=== PATIENT | male | born 1965 | race Caucasian/White ===

== ENCOUNTER → 2017-03-17 10:15 | Outpatient (CLI) | payer BC, SELFPAY ==
[2017-03-17 12:29] LABS: Alanine Aminotransferase 50 U/L (12-78); Alkaline Phosphatase 76 U/L (46-116); Aspartate Amino Transferase 27 U/L (15-37); Bilirubin,Direct 0.1 mg/dL (0.0-0.2); Bilirubin,Total 0.5 mg/dL (0.2-1.0); Chol/HDL Ratio 2.8 (1-3.5); Cholesterol 107 mg/dL (140-200); HDL Cholesterol 38 mg/dL (27-67); LDL Cholesterol 49 mg/dL (0-130); Total Protein,Serum 6.7 gm/dL (6.4-8.2); Triglycerides 100 mg/dL (30-200); VLDL Cholesterol 20 mg/dL (0-40)
== END ==
PROVIDERS: PCP Family Medicine; Visit Provider Internal Medicine Cardiovascular Disease
DX: I25.10 Atherosclerotic heart disease of native coronary artery without angina pectoris (principal)
CPT/HCPCS: 36415; 80061; 80076

== ENCOUNTER 2017-03-20 17:58 | Inpatient (IN) | payer BC, SELFPAY ==
--- NOTE | 2017-03-20 19:19 | PC.NURSE ---
PT BEING SENT TO ER FOR FURTHER EVALUATION D/T C/O CHEST PAIN THAT IS NOW PRESENT WITHOUT COUGHING. PT REPORTED KNOWN CARDIAC ISSUES AND STENTS PLACED.
[2017-03-20 19:21] VITALS: BP 150/96; PULSE 81; RESP 22; TEMP 38.3; O2SAT 97; BMI 44.3
[2017-03-20 19:21] LABS: UTC Influenza A Antigen Negative (Negative); UTC Influenza B Antigen Positive (Negative)
--- NOTE | 2017-03-20 19:37 | XR_ITS ---
XR chest 2V HISTORY: ITS.REASON: chest pain ORDERING PHYSICIAN: Elise Peterson PATIENT AGE: 51 years COMPARISON: None available FINDINGS: There is mild cardiomegaly with mild prominence of the upper lobe pulmonary vessels suspicious for mild CHF. There is a 9 x 6 mm calcified granuloma right upper lobe. No interstitial or alveolar edema. No effusions. No acute bony anomalies. IMPRESSION: Mild CHF
[2017-03-20 19:51] LABS: Basophils # 0.1 K/mm3 (0-0.2); Basophils % 0.7 % (0.1-2.0); Eosinophils # 0.1 K/mm3 (0.0-0.4); Eosinophils % 1.4 % (0.1-12.0); Hematocrit 44.7 % (42.0-52.0); Hemoglobin 15.5 g/dL (14.1-18.0); Lymphocytes % 27.2 K/mm3 (10-50); Mean Corpuscular HGB Conc 34.6 g/dL (31.8-35.4); Mean Corpuscular Volume 92.5 fl (80-94); Mean Platelet Volume 8.4 fl (7.4-10.4); Monocytes # 0.5 K/mm3 (0.1-1.0); Monocytes % 7.4 % (1.7-9.3); Neutrophils # 4.6 K/mm3 (1.8-7.8); Neutrophils % 63.3 % (37.0-80.0); Platelet Count 215 K/mm3 (142-424); Red Blood Count 4.83 M/mm3 (4.60-6.20); Red Cell Distribution Width 13.7 % (11.5-17.5); White Blood Count 7.3 K/mm3 (4.8-10.8)
--- NOTE | 2017-03-20 19:58 | HMH.EDCP ---
ED Disposition Clinical Impression: Unstable angina, Influenza Disposition: Still a Patient Condition on Discharge: Good Referrals: Odette Aiken MD [Primary Care Provider] - - Critical Care Critical Care Time: No Attestation: On 03/20/17, the high probability of a clinically significant, sudden or life threatening deterioration of the following system(s) required my full and direct attention, intervention and personal management. The time I documented below is in addition to time spent performing reported procedures but includes the following listed in this critical care notation. Medical Decision Making - Medical Records Medical records reviewed: Yes: I reviewed the patient's medical records. Vital Signs: 03/20/17 19:21 Temperature 100.9 F H Temperature Source Oral Pulse Rate [Right Radial] 81 Respiratory Rate 22 Blood Pressure [Right Arm] 150/96 Blood Pressure Mean [Right Arm] 114 Blood Pressure Source [Right Arm] Automatic Cuff Blood Pressure Position [Right Arm] Sitting 02 Sat by Pulse Oximetry 97 Oxygen Delivery Method Room Air - Lab Data Lab Results 03/20/17 19:20: Influenza Type A Ag Negative, Influenza Type B Ag Positive A 03/20/17 19:20: WBC 7.3, RBC 4.83, Hgb 15.5, Hct 44.7, MCV 92.5, MCH 32.0 H, MCHC 34.6, RDW 13.7, Plt Count 215, MPV 8.4, Neut % (Auto) 63.3, Lymph % (Auto) 27.2, [place] % (Auto) 7.4, Eos % (Auto) 1.4, Baso % (Auto) 0.7, Neut # (Auto) 4.6, Lymph # (Auto) 2.0, [place] # (Auto) 0.5, Eos # (Auto) 0.1, Baso # (Auto) 0.1 03/20/17 19:20: Sodium 141, Potassium 4.0, Chloride 104, Carbon Dioxide 26, Anion Gap 15.0, BUN 17, Creatinine 0.99, Estimated Creat Clear 89, Estimated GFR 80, Est GFR ( Amer) 97, Glucose 138 H, Calcium 9.0, Total Bilirubin 0.5, AST 39 H, ALT 62, Alkaline Phosphatase 105, Total Creatine Kinase 260, CK-MB (CK-2) 1.9, CK-MB (CK-2) Rel Index 0.7, Troponin I < 0.02, Total Protein 7.5, Albumin 4.0, Globulin 3.5 H, Albumin/Globulin Ratio 1.1 Result diagrams: 03/20/17 19:20 03/20/17 19:20 Orders (Tests/Meds): ED MEDICATIONS Discontinued Medications Generic Name Dose Route Start Last Admin Trade Name Danitza PRN Reason Stop Dose Admin Acetaminophen 1,000 mg 03/20/17 19:50 03/20/17 19:51 Tylenol 500mg Tablet PO 03/20/17 19:51 1,000 mg ONCE ONE Administration Aspirin 324 mg 03/20/17 19:50 03/20/17 19:52 Aspirin 81mg Chewable Tablet PO 03/20/17 19:51 324 mg ONCE ONE Administration Nitroglycerin 1 gm 03/20/17 19:50 03/20/17 19:52 Nitroglycerin 1 Inch Oint Udp TD 03/20/17 19:51 1 gm ONCE ONE Administration ORDERS Category Date Time Status Chest XR 2 view (NOT portable) [XR chest 2V] Stat Exams 03/20/17 19:37 Taken - ECG Data Tracing #1 1- Normal sinus rhythm 82/min left atrial enlargement left axis deviation less than [address] elevation in V2 baseline artifact left ventricular hypertrophy. ECG initial impression date: 03/20/17 ECG initial impression time: 20:04 Tracing #2 After the patient was given aspirin and nitroglycerin obtain a second EKG which showed normal sinus rhythm 80/min LVH changes correction of the ST segment in V2 - Karl Inquiry Pt receiving controlled substance: No Karl was queried for this patient: No Medical Decision Making Narrative: [address] Coyle who recommended obtaining troponin and and report the results to him . Patient had normal troponin I contacted his primary care physician for admission and cardiology consultation. Chest Pain HPI - General Chief Complaint: Chest Pain Stated Complaint: head congestion, cough Mode of Arrival: Ambulatory Limitations: No Limitations Description of Symptoms (Recalled from ER Triage Doc. by RN): Pt. reports he tested positive for flu b today. He came from [facility] to the hospital when he started experiencing substernal chest pain, and difficulty breathing. - History of Present Illness HPI narrativ
--- NOTE | 2017-03-20 20:02 | ED_ITS ---
ED Disposition Clinical Impression: Unstable angina, Influenza Disposition: Still a Patient Condition on Discharge: Good Referrals: Odette Aiken MD [Primary Care Provider] - - Critical Care Critical Care Time: No Attestation: On 03/20/17, the high probability of a clinically significant, sudden or life threatening deterioration of the following system(s) required my full and direct attention, intervention and personal management. The time I documented below is in addition to time spent performing reported procedures but includes the following listed in this critical care notation. Medical Decision Making - Medical Records Medical records reviewed: Yes: I reviewed the patient's medical records. Vital Signs: 03/20/17 19:21 Temperature 100.9 F H Temperature Source Oral Pulse Rate [Right Radial] 81 Respiratory Rate 22 Blood Pressure [Right Arm] 150/96 Blood Pressure Mean [Right Arm] 114 Blood Pressure Source [Right Arm] Automatic Cuff Blood Pressure Position [Right Arm] Sitting 02 Sat by Pulse Oximetry 97 Oxygen Delivery Method Room Air - Lab Data Lab Results 03/20/17 19:20: Influenza Type A Ag Negative, Influenza Type B Ag Positive A 03/20/17 19:20: WBC 7.3, RBC 4.83, Hgb 15.5, Hct 44.7, MCV 92.5, MCH 32.0 H, MCHC 34.6, RDW 13.7, Plt Count 215, MPV 8.4, Neut % (Auto) 63.3, Lymph % (Auto) 27.2, [place] % (Auto) 7.4, Eos % (Auto) 1.4, Baso % (Auto) 0.7, Neut # (Auto) 4.6 , Lymph # (Auto) 2.0, [place] # (Auto) 0.5, Eos # (Auto) 0.1, Baso # (Auto) 0.1 03/20/17 19:20: Sodium 141, Potassium 4.0, Chloride 104, Carbon Dioxide 26, Anion Gap 15.0, BUN 17, Creatinine 0.99, Estimated Creat Clear 89, Estimated GFR 80, Est GFR ( Amer) 97, Glucose 138 H, Calcium 9.0, Total Bilirubin 0.5, AST 39 H, ALT 62, Alkaline Phosphatase 105, Total Creatine Kinase 260, CK- MB (CK-2) 1.9, CK-MB (CK-2) Rel Index 0.7, Troponin I < 0.02, Total Protein 7.5 , Albumin 4.0, Globulin 3.5 H, Albumin/Globulin Ratio 1.1 Result diagrams: 03/20/17 19:20 03/20/17 19:20 Orders (Tests/Meds): ED MEDICATIONS Discontinued Medications Generic Name Dose Route Start Last Admin Trade Name Danitza PRN Reason Stop Dose Admin Acetaminophen 1,000 mg 03/20/17 19:50 03/20/17 19:51 Tylenol 500mg Tablet PO 03/20/17 19:51 1,000 mg ONCE ONE Administration Aspirin 324 mg 03/20/17 19:50 03/20/17 19:52 Aspirin 81mg Chewable Tablet PO 03/20/17 19:51 324 mg ONCE ONE Administration Nitroglycerin 1 gm 03/20/17 19:50 03/20/17 19:52 Nitroglycerin 1 Inch Oint Udp TD 03/20/17 19:51 1 gm ONCE ONE Administration ORDERS Category Date Time Status Chest XR 2 view (NOT portable) [XR chest 2V] Stat Exams 03/20/17 19:37 Taken - ECG Data Tracing #1 1- Normal sinus rhythm 82/min left atrial enlargement left axis deviation less than [address] elevation in V2 baseline artifact left ventricular hypertrophy. ECG initial impression date: 03/20/17 ECG initial impression time: 20:04 Tracing #2 After the patient was given aspirin and nitroglycerin obtain a second EKG which showed normal sinus rhythm 80/min LVH changes correction of the ST segment in V2 - Karl Inquiry Pt receiving controlled substance: No Karl was queried for this patient: No Medical Decision Making Narrative:
[2017-03-20 20:17] LABS: Alanine Aminotransferase 62 U/L (12-78); Albumin/Globulin Ratio 1.1 (1.1-1.8); Alkaline Phosphatase 105 U/L (46-116); Aspartate Amino Transferase 39 U/L (15-37); Bilirubin,Total 0.5 mg/dL (0.2-1.0); Blood Urea Nitrogen 17 mg/dL (7-18); CKMB Relative Index 0.7 U/L (0-4.0); Carbon Dioxide 26 mmol/L (21.0-32.0); Chloride 104 mmol/L (98-107); Creatine Kinase 260 U/L (39-308); Creatine Kinase MB 1.9 mg/ml (0.0-3.6); Creatinine Clearance Estimated 89 mL/min (0-300); Creatinine,Serum 0.99 mg/dL (0.70-1.30); Estimated Glomerular Filt Rate 80 ml/min (>60); GFR (African American) 97 ML/MIN (>60); Globulin 3.5 gm/dl (1.3-3.2); Glucose 138 mg/dL (74-106); Sodium 141 mmol/L (136-145); Total Protein,Serum 7.5 gm/dL (6.4-8.2); Troponin I < 0.02 ng/ml (0.00-0.06)
[2017-03-20 22:00] VITALS: BMI 42.3
[2017-03-20 22:17] LABS: Troponin I < 0.02 ng/ml (0.00-0.06)
[2017-03-20 23:14] VITALS: BP 145/88; PULSE 80; RESP 18; TEMP 37.7; O2SAT 98
[2017-03-20 23:47] VITALS: O2SAT 94
[2017-03-21] VITALS (15 sets, daily range): BP systolic 126–149; BP diastolic 62–84; PULSE 74–83; RESP 18–21; TEMP 36.5–39.9; O2SAT 95–100
--- NOTE | 2017-03-21 05:08 | PC.NURSE ---
PT RESTING IN BED. HAS BEEN UNCOOPERATIVE WITH STAFF AT TIMES. PT STATES HE HURTS IN HIS CHEST WHEN HE BREATHS IN. LUNGS ARE DIMINISHED T/O. PT O2 SAT HAS REMAINED IN UPPER 90S THIS SHIFT ON RA. MEDICATIONS ADMINISTERED PER MAR AND MD ORDER. PT REMAINS NSR ON TELEMETRY. TROPONIN HAS BEEN NORMAL. HE HAS HAD ELEVATED TEMP AT TIMES THIS SHIFT. NO OTHER COCNERNS AT THIS TIME. WILL CONTINUE TO MONITOR.
[2017-03-21 06:07] LABS: Troponin I < 0.02 ng/ml (0.00-0.06)
--- NOTE | 2017-03-21 08:07 | PC.NURSE ---
REPORT HAND OFF TO Keli SWANN AND Misty LARKIN
--- NOTE | 2017-03-21 08:34 | P.CONPHA_ITS ---
[facility] Pharmacy VTE Monitoring - Patient Demographics Admission date: 03/20/17 Report Date: 03/21/17 Time: 08:33 Allergies/Adverse Reactions: Patient Allergies latex Allergy (Intermediate, Verified 03/20/17 19:35) I-RASH Height: 1.78 m Weight: 133.81 kg Patient Problems: Current Active Problems Unstable angina (Acute) Influenza (Acute) - VTE Risk Labs: VTE Related Lab Results Hgb 15.5 g/dL (14.1-18.0) 03/20/17 19:20 Hct 44.7 % (42.0-52.0) 03/20/17 19:20 Plt Count 215 K/mm3 (142-424) 03/20/17 19:20 BUN 17 mg/dL (7-18) 03/20/17 19:20 Creatinine 0.99 mg/dL (0.70-1.30) 03/20/17 19:20 Estimated Creat Clear 89 mL/min (0-300) 03/20/17 19:20 Was VTE Risk Assessment Performed: Yes VTE Score: 4 VTE Risk Level: Low Risk - Prophylaxis VTE Prophylaxis Ordered?: Yes Types of VTE Prophylaxis: TEDS Knee High Location of Applied Device: Bilateral Lower Extremeties - VTE Diagnosis Confirmed Treatment or plan recommended: Continue Current Treatment
--- NOTE | 2017-03-21 09:27 | HMH.HP ---
*Admission Date: 03/20/17 *Chief complaint: cough and CP *History of present illness: Mr Malhotra is a 51 years old white male with history of coronary artery disease status post stenting of the LAD in 2017. He experienced a productive cough with pressure like discomfort in the left anterior Chest yesterday. He presented to urgent treatment care where he was noted to be diaphoretic, short of breath, and reported having pressure type chest pain. He was diverted to the main ER. His systolic blood pressure was 150 and an EKG had V2 changes in comparison to an old EKG from June 07, 2016. Dr. Coyle, his basketball coach, was contacted who recommended obtaining blood work. He was then admitted for further evaluation and TX. This AM he is feeling better. He denies CP and SOB. He has been sleeping with his CPAP on. [facility] History Medical History: Reports:: Anxiety, Coronary Artery Disease, Depression, Diabetes Mellitus Type 2, Gastroesophageal Reflux Disease(GERD), Hyperlipidemia, Hypertension, Valvular Heart Disease Comment: ADD; chronic back pain; sleep apnea Laterality Cases: Bilateral: Carpal Tunnel Release Other Surgeries: Yes: Coronary Stent, Other (carpal tunnel) Comment: Ganglion cyst removal - *Social History Educational Level: Attended High School Smoking Status: Never smoker Alcohol Intake: current Alcohol Intake Frequency:: a few times a week Occupational Status: employed Housing: house Household Members: spouse, children - Psychiatric History Expresses thoughts of harming self/others: None Suicide Plan Description: No Plan Pschychiatric History:: Reports:: Anxiety Comment: pt is adopted Review of Systems - Constitutional Denies body ache(s), Denies fever(s) - ENT Reports dental pain, Denies dizziness, Denies sore throat - *Cardiovascular Reports chest pain, Reports shortness of breath with activity, Denies irregular heart rhythm - *Respiratory Reports cough, Reports shortness of breath with activity, Reports excessive phlegm production, Denies coughing up blood - *Gastrointestinal Reports heartburn, Denies abdominal pain, Denies change in bowel habits, Denies constipation, Denies loose stools, Denies nausea, Denies vomiting - *Genitourinary Denies difficulty urinating - *Musculoskeletal Denies joint pain, Denies body aches - *Neurologic Denies dizziness, Denies headache(s) Meds Home Medications Medication Instructions Recorded Confirmed Type aspirin 81 mg tablet,delayed 81 mg PO DAILY 03/11/17 03/21/17 History release coenzyme Q10 10 mg capsule 10 mg PO DAILY 03/11/17 03/21/17 History fluticasone 50 mcg/actuation nasal 50 mcg INTRANASAL ONCE 03/11/17 03/20/17 History spray,suspension lisinopril 20 mg tablet 20 mg PO DAILY 03/11/17 03/21/17 History metformin 500 mg tablet 500 mg PO BID 03/11/17 03/20/17 History omeprazole magnesium 20 mg 20 mg PO DAILY tab 03/11/17 03/20/17 History tablet,delayed release oxycodone-acetaminophen 10 mg-325 1 tab PO Q4-6H PRN 03/11/17 03/20/17 History mg tablet prasugrel 10 mg tablet 10 mg PO DAILY 03/11/17 03/21/17 History ranolazine ER 1,000 mg 1,000 mg PO BID 03/11/17 03/21/17 History tablet,extended release,12 hr rosuvastatin 20 mg tablet 20 mg PO HS 03/11/17 03/21/17 History triamterene 37.5 0.5 tab PO QAM tab 03/11/17 03/20/17 History mg-hydrochlorothiazide 25 mg tablet venlafaxine ER 75 mg 75 mg PO QHS 03/11/17 03/20/17 History capsule,extended release 24 hr dextroamphetamine-amphetamine 20 20 mg PO BID tab 03/17/17 03/21/17 History mg tablet Bisoprolol Fumarate [Zebeta 5mg 5 mg PO DAILY 03/20/17 03/21/17 History tablet] Allergies Allergy/AdvReac Type Severity Reaction Status Date / Time latex Allergy Intermediate I-RASH Verified 03/20/17 19:35 Exam Vital signs and Labs for Last 24 Hours: Temp Pulse Resp BP Pulse Ox 100.5 F H 80 19 128/84 97 03/21/17 04:05 03/21/17 04:58 03/21/17 04:05 03/10
--- NOTE | 2017-03-21 09:32 | P.HP_ITS ---
*Admission Date: 03/20/17 *Chief complaint: cough and CP *History of present illness: Mr Malhotra is a 51 years old white male with history of coronary artery disease status post stenting of the LAD in 2017. He experienced a productive cough with pressure like discomfort in the left anterior Chest yesterday. He presented to urgent treatment care where he was noted to be diaphoretic, short of breath, and reported having pressure type chest pain. He was diverted to the main ER. His systolic blood pressure was 150 and an EKG had V2 changes in comparison to an old EKG from June 07, 2016. Dr. Coyle, his ranch helper, was contacted who recommended obtaining blood work. He was then admitted for further evaluation and TX. This AM he is feeling better. He denies CP and SOB. He has been sleeping with his CPAP on. [facility] History Medical History: Reports:: Anxiety, Coronary Artery Disease, Depression, Diabetes Mellitus Type 2, Gastroesophageal Reflux Disease(GERD), Hyperlipidemia , Hypertension, Valvular Heart Disease Comment: ADD; chronic back pain; sleep apnea Laterality Cases: Bilateral: Carpal Tunnel Release Other Surgeries: Yes: Coronary Stent, Other (carpal tunnel) Comment: Ganglion cyst removal - *Social History Educational Level: Attended High School Smoking Status: Never smoker Alcohol Intake: current Alcohol Intake Frequency:: a few times a week Occupational Status: employed Housing: house Household Members: spouse, children - Psychiatric History Expresses thoughts of harming self/others: None Suicide Plan Description: No Plan Pschychiatric History:: Reports:: Anxiety Comment: pt is adopted Review of Systems - Constitutional Denies body ache(s), Denies fever(s) - ENT Reports dental pain, Denies dizziness, Denies sore throat - *Cardiovascular Reports chest pain, Reports shortness of breath with activity, Denies irregular heart rhythm - *Respiratory Reports cough, Reports shortness of breath with activity, Reports excessive phlegm production, Denies coughing up blood - *Gastrointestinal Reports heartburn, Denies abdominal pain, Denies change in bowel habits, Denies constipation, Denies loose stools, Denies nausea, Denies vomiting - *Genitourinary Denies difficulty urinating - *Musculoskeletal Denies joint pain, Denies body aches - *Neurologic Denies dizziness, Denies headache(s) Meds Home Medications Medication Instructions Recorded Confirmed Type aspirin 81 mg tablet,delayed 81 mg PO DAILY 03/11/17 03/21/17 History release coenzyme Q10 10 mg capsule 10 mg PO DAILY 03/11/17 03/21/17 History fluticasone 50 mcg/actuation nasal 50 mcg INTRANASAL ONCE 03/11/17 03/20/17 History spray,suspension lisinopril 20 mg tablet 20 mg PO DAILY 03/11/17 03/21/17 History metformin 500 mg tablet 500 mg PO BID 03/11/17 03/20/17 History omeprazole magnesium 20 mg 20 mg PO DAILY tab 03/11/17 03/20/17 History tablet,delayed release oxycodone-acetaminophen 10 mg-325 1 tab PO Q4-6H PRN 03/11/17 03/20/17 History mg tablet prasugrel 10 mg tablet 10 mg PO DAILY 03/11/17 03/21/17 History ranolazine ER 1,000 mg 1,000 mg PO BID 03/11/17 03/21/17 History tablet,extended release,12 hr rosuvastatin 20 mg tablet 20 mg PO HS 03/11/17 03/21/17 History triamterene 37.5 0.5 tab PO QAM tab 03/11/17 03/20/17 History mg-hydrochlorothiazide 25 mg tablet venlafaxine ER 75 mg 75 mg PO QHS 03/11/17 03/20/17 History capsule,extend
--- NOTE | 2017-03-21 18:31 | HMH.ACPN2 ---
Internal Medicine - PN: Subj *Date: 03/21/17 *Time: 18:31 Interval history: ER did not enter formal consult, thus patient was not seen today by cardiology. His status has improved: lungs are clear, no leg edema. Exam Vital signs and Labs for Last 24 Hours: Temp Pulse Resp BP Pulse Ox 99.6 F 78 18 126/62 95 03/21/17 16:29 03/21/17 16:29 03/21/17 16:29 03/21/17 15:21 03/21/17 15:21 Laboratory Results - last 24 hr 03/21/17 05:05: Troponin I < 0.02 I & O for Last 24 hours: Intake & Output 03/19/17 03/20/17 03/21/17 03/22/17 11:59 11:59 11:59 11:59 Intake Total 458 / 458 720 / 720 Output Total 800 / 800 Balance 458 / 458 -80 / -80 Weight 295 lb - *Routine Respiratory Exam Present: CTA bilaterally - *Routine Cardiovascular Exam Present: RRR - *Routine Extremities Exam Absent: edema Assessment and Plan (1) Chest pain Current visit: Yes Status: Acute Category: Medical Code(s): R07.9 - Chest pain, unspecified (2) Influenza Current visit: Yes Status: Acute Category: Medical Code(s): J11.1 - Influenza due to unidentified influenza virus with other respiratory manifestations (3) HTN (hypertension) Current visit: No Status: Chronic Qualifiers: Hypertension type: essential hypertension Qualified Code(s): I10 - Essential (primary) hypertension Category: Medical Code(s): I10 - Essential (primary) hypertension (4) CAD (coronary artery disease) Current visit: No Status: Chronic Qualifiers: Coronary Disease-Associated Artery/Lesion type: circle artery [place] vs. transplanted heart: circle heart Associated angina: without angina Qualified Code(s): I25.10 - Atherosclerotic heart disease of circle coronary artery without angina pectoris Category: Medical Code(s): I25.10 - Atherosclerotic heart disease of circle coronary artery without angina pectoris (5) Diabetes mellitus Current visit: No Status: Chronic Qualifiers: Diabetes mellitus type: type 2 Diabetes mellitus complication status: without complication Diabetes mellitus information assurance specialist insulin use: unspecified information assurance specialist insulin use status Qualified Code(s): E11.9 - Type 2 diabetes mellitus without complications Category: Medical Code(s): E11.9 - Type 2 diabetes mellitus without complications (6) LETY (obstructive sleep apnea) Current visit: No Status: Chronic Category: Medical Code(s): G47.33 - Obstructive sleep apnea (adult) (pediatric) (7) Stented coronary artery Current visit: No Status: Chronic Category: Surgical Code(s): Z95.5 - Presence of coronary angioplasty implant and graft - Assessment and plan all Dx Assessment and Plan for all problems:: Dr. Aiken spoke with Dr. Coyle who will see patient in consult. Cardiolyte GXT ordered for in AM.
--- NOTE | 2017-03-21 18:34 | P.PN_ITS ---
Internal Medicine - PN: Subj *Date: 03/21/17 *Time: 18:31 Interval history: ER did not enter formal consult, thus patient was not seen today by cardiology. His status has improved: lungs are clear, no leg edema. Exam Vital signs and Labs for Last 24 Hours: Temp Pulse Resp BP Pulse Ox 99.6 F 78 18 126/62 95 03/21/17 16:29 03/21/17 16:29 03/21/17 16:29 03/21/17 15:21 03/21/17 15:21 Laboratory Results - last 24 hr 03/21/17 05:05: Troponin I < 0.02 I & O for Last 24 hours: Intake & Output 03/19/17 03/20/17 03/21/17 03/22/17 11:59 11:59 11:59 11:59 Intake Total 458 / 458 720 / 720 Output Total 800 / 800 Balance 458 / 458 -80 / -80 Weight 295 lb - *Routine Respiratory Exam Present: CTA bilaterally - *Routine Cardiovascular Exam Present: RRR - *Routine Extremities Exam Absent: edema Assessment and Plan (1) Chest pain Current visit: Yes Status: Acute Category: Medical Code(s): R07.9 - Chest pain, unspecified (2) Influenza Current visit: Yes Status: Acute Category: Medical Code(s): J11.1 - Influenza due to unidentified influenza virus with other respiratory manifestations (3) HTN (hypertension) Current visit: No Status: Chronic Qualifiers: Hypertension type: essential hypertension Qualified Code(s): I10 - Essential (primary) hypertension Category: Medical Code(s): I10 - Essential (primary) hypertension (4) CAD (coronary artery disease) Current visit: No Status: Chronic Qualifiers: Coronary Disease-Associated Artery/Lesion type: crow artery [place] vs. transplanted heart: crow heart Associated angina: without angina Qualified Code(s): I25.10 - Atherosclerotic heart disease of crow coronary artery without angina pectoris Category: Medical Code(s): I25.10 - Atherosclerotic heart disease of crow coronary artery without angina pectoris (5) Diabetes mellitus Current visit: No Status: Chronic Qualifiers: Diabetes mellitus type: type 2 Diabetes mellitus complication status: without complication Diabetes mellitus terminal manager insulin use: unspecified terminal manager insulin use status Qualified Code(s): E11.9 - Type 2 diabetes mellitus without complications Category: Medical Code(s): E11.9 - Type 2 diabetes mellitus without complications (6) LETY (obstructive sleep apnea) Current visit: No Status: Chronic Category: Medical Code(s): G47.33 - Obstructive sleep apnea (adult) (pediatric) (7) Stented coronary artery Current visit: No Status: Chronic Category: Surgical Code(s): Z95.5 - Presence of coronary angioplasty implant and graft - Assessment and plan all Dx Assessment and Plan for all problems:: Dr. Aiken spoke with Dr. Coyle who will see patient in consult. Cardiolyte GXT ordered for in AM.
[2017-03-22] VITALS (13 sets, daily range): BP systolic 93–141; BP diastolic 40–70; PULSE 66–88; RESP 16–20; TEMP 36.6–37.2; O2SAT 95–98
--- NOTE | 2017-03-22 03:44 | PC.NURSE ---
PATIENT SEEMS TO HAVE RESTED WELL AND HAS SLEPT THROUGHOUT SHIFT. PATIENT C/O HAVING CHILLS AND WAS FLUSHED/DIAPHORETIC. HIS TEMP AT THAT TIME WAS 100.8 ORALLY AND HE RECEIVED PRN TYLENOL AT THAT TIME. TEMP WAS RECHECKED LATER AND WAS 98.6 ORALLY. PATIENT'S PERSONAL CPAP IS IN PLACE WHILE PATIENT IS SLEEPING. HE HAS HAD NO C/O PAIN. HE DID SAY THAT HE DOES GET SOA AT TIMES. NO DISTRESS NOTED. PATIENT IS CURRENTLY IN BED SLEEPING. NO OTHER PROBLEMS NOTED AT THIS TIME. VSS. WILL CONTINUE TO MONITOR. SAFETY MEASURES IN PLACE, CALL LIGHT IN REACH.
--- NOTE | 2017-03-22 06:17 | NM_ITS ---
CARDIOLITE SPECT MYOCARDIAL PERFUSION SCAN, REST AND STRESS: EXERCISE STRESS [facility] REVIEW QGS EF AND WALL MOTION EVALUATION: QPS - PERFUSION EVALUATION HISTORY: Chest pain, SOB, CAD, HTN, DM DOSE: 10.94 mCi technetium Myoview intravenously at rest followed by 32.3 mCi technetium Myoview following the intravenous administration of 0.4 mg of Lexiscan. Resting blood pressure is 117/63. Stress blood pressure 102/54. FINDINGS: Ejection fraction is calculated to be 48%. Mild global hypokinesia Fixed defect is present in the inferior wall somewhat more prominent on the rest images. No reversible defects are evident. IMPRESSION: 1. Low ejection fraction of 40% with mild global hypokinesia. 2. Small fixed defect involving the inferior wall consistent with an area of infarction. No reversible defects are evident
--- NOTE | 2017-03-22 07:03 | HMH.ITSHM ---
BISOPROLOL LISINOPRIL METFORMIN PROTONIX EFFIENT PRAVASTATIN RANEXA EFFEXOR MAXZIDE
--- NOTE | 2017-03-22 09:10 | PC.NURSE ---
pt back from stress test
--- NOTE | 2017-03-22 09:12 | HMH.ACPN2 ---
Internal Medicine - PN: Subj *Date: 03/22/17 *Time: 09:12 Interval history: Has completed stress test. States he has been wheezing. Continues to have chest pain with cough. He has been eating without problems Exam Vital signs and Labs for Last 24 Hours: Temp Pulse Resp BP Pulse Ox 98.7 F 74 20 93/40 95 03/22/17 03:30 03/22/17 06:06 03/22/17 03:30 03/22/17 03:30 03/22/17 03:30 I & O for Last 24 hours: Intake & Output 03/19/17 03/20/17 03/21/17 03/22/17 11:59 11:59 11:59 11:59 Intake Total 458 / 458 720 / 720 Output Total 800 / 800 Balance 458 / 458 -80 / -80 Weight 295 lb - Constitutional no acute distress - *Routine Respiratory Exam Comments: Bilateral inspiratory and expiratory wheezing - *Routine Cardiovascular Exam Present: RRR - *Routine Abdominal Exam Present: soft. Absent: tenderness - *Routine Extremities Exam Absent: edema, full ROM, calf tenderness - *Routine Neurological Exam Present: alert, oriented X3 Assessment and Plan (1) Chest pain Current visit: Yes Status: Acute Category: Medical Code(s): R07.9 - Chest pain, unspecified (2) Influenza Current visit: Yes Status: Acute Category: Medical Code(s): J11.1 - Influenza due to unidentified influenza virus with other respiratory manifestations (3) HTN (hypertension) Current visit: No Status: Chronic Qualifiers: Hypertension type: essential hypertension Qualified Code(s): I10 - Essential (primary) hypertension Category: Medical Code(s): I10 - Essential (primary) hypertension (4) CAD (coronary artery disease) Current visit: No Status: Chronic Qualifiers: Coronary Disease-Associated Artery/Lesion type: [place] artery [place] vs. transplanted heart: [place] heart Associated angina: without angina Qualified Code(s): I25.10 - Atherosclerotic heart disease of [place] coronary artery without angina pectoris Category: Medical Code(s): I25.10 - Atherosclerotic heart disease of [place] coronary artery without angina pectoris (5) Diabetes mellitus Current visit: No Status: Chronic Qualifiers: Diabetes mellitus type: type 2 Diabetes mellitus complication status: without complication Diabetes mellitus retirement insulin use: unspecified retirement insulin use status Qualified Code(s): E11.9 - Type 2 diabetes mellitus without complications Category: Medical Code(s): E11.9 - Type 2 diabetes mellitus without complications (6) LETY (obstructive sleep apnea) Current visit: No Status: Chronic Category: Medical Code(s): G47.33 - Obstructive sleep apnea (adult) (pediatric) (7) Stented coronary artery Current visit: No Status: Chronic Category: Surgical Code(s): Z95.5 - Presence of coronary angioplasty implant and graft (8) Right otitis externa Current visit: Yes Status: Acute Category: Medical Code(s): H60.91 - Unspecified otitis externa, right ear - Assessment and plan all Dx Assessment and Plan for all problems:: Will complete cardiac stress test. Possibly home if stress test is negative.
--- NOTE | 2017-03-22 09:15 | P.PN_ITS ---
Internal Medicine - PN: Subj *Date: 03/22/17 *Time: 09:12 Interval history: Has completed stress test. States he has been wheezing. Continues to have chest pain with cough. He has been eating without problems Exam Vital signs and Labs for Last 24 Hours: Temp Pulse Resp BP Pulse Ox 98.7 F 74 20 93/40 95 03/22/17 03:30 03/22/17 06:06 03/22/17 03:30 03/22/17 03:30 03/22/17 03:30 I & O for Last 24 hours: Intake & Output 03/19/17 03/20/17 03/21/17 03/22/17 11:59 11:59 11:59 11:59 Intake Total 458 / 458 720 / 720 Output Total 800 / 800 Balance 458 / 458 -80 / -80 Weight 295 lb - Constitutional no acute distress - *Routine Respiratory Exam Comments: Bilateral inspiratory and expiratory wheezing - *Routine Cardiovascular Exam Present: RRR - *Routine Abdominal Exam Present: soft. Absent: tenderness - *Routine Extremities Exam Absent: edema, full ROM, calf tenderness - *Routine Neurological Exam Present: alert, oriented X3 Assessment and Plan (1) Chest pain Current visit: Yes Status: Acute Category: Medical Code(s): R07.9 - Chest pain, unspecified (2) Influenza Current visit: Yes Status: Acute Category: Medical Code(s): J11.1 - Influenza due to unidentified influenza virus with other respiratory manifestations (3) HTN (hypertension) Current visit: No Status: Chronic Qualifiers: Hypertension type: essential hypertension Qualified Code(s): I10 - Essential (primary) hypertension Category: Medical Code(s): I10 - Essential (primary) hypertension (4) CAD (coronary artery disease) Current visit: No Status: Chronic Qualifiers: Coronary Disease-Associated Artery/Lesion type: [place] artery [place] vs. transplanted heart: [place] heart Associated angina: without angina Qualified Code(s): I25.10 - Atherosclerotic heart disease of [place] coronary artery without angina pectoris Category: Medical Code(s): I25.10 - Atherosclerotic heart disease of [place] coronary artery without angina pectoris (5) Diabetes mellitus Current visit: No Status: Chronic Qualifiers: Diabetes mellitus type: type 2 Diabetes mellitus complication status: without complication Diabetes mellitus chcf insulin use: unspecified chcf insulin use status Qualified Code(s): E11.9 - Type 2 diabetes mellitus without complications Category: Medical Code(s): E11.9 - Type 2 diabetes mellitus without complications (6) LETY (obstructive sleep apnea) Current visit: No Status: Chronic Category: Medical Code(s): G47.33 - Obstructive sleep apnea (adult) (pediatric) (7) Stented coronary artery Current visit: No Status: Chronic Category: Surgical Code(s): Z95.5 - Presence of coronary angioplasty implant and graft (8) Right otitis externa Current visit: Yes Status: Acute Category: Medical Code(s): H60.91 - Unspecified otitis externa, right ear - Assessment and plan all Dx Assessment and Plan for all problems:: Will complete cardiac stress test. Possibly home if stress test is negative.
--- NOTE | 2017-03-22 09:39 | HMH.CNCARD ---
History of Present Illness Consult date: 03/22/17 Requesting physician: Odette Aiken Consult reason: chest pain Chief complaint: chest pain History of present illness: 51-year-old white male admitted for flu with increasing cough and shortness of breath. Patient had chest discomfort on admission for which nitroglycerin paste was applied with relief of symptoms about 45 minutes later. No recurrence of chest pain since then. Cardiology asked to see for further evaluation. Cardiac enzymes have returned and remained normal with EKG showing chronic changes in sinus rhythm. Patient denies any exertional shortness of breath prior to current illness. He does have a history of coronary artery stent of the LAD in June of last year. [facility] History Medical History: Reports:: Anxiety, Coronary Artery Disease, Depression, Diabetes Mellitus Type 2, Gastroesophageal Reflux Disease(GERD), Hyperlipidemia, Hypertension, Valvular Heart Disease Laterality Cases: Bilateral: Carpal Tunnel Release Other Surgeries: Yes: Coronary Stent, Other (carpal tunnel) - *Social History Educational Level: Attended High School Smoking Status: Never smoker Alcohol Intake: current Alcohol Intake Frequency:: a few times a week Occupational Status: employed Housing: house Household Members: spouse, children - Psychiatric History Expresses thoughts of harming self/others: None Suicide Plan Description: No Plan Pschychiatric History:: Reports:: Anxiety, Depression *Family Hx:: Cancer, Coronary Artery Disease Meds Home Medications Medication Instructions Recorded Confirmed Type aspirin 81 mg tablet,delayed 81 mg PO DAILY 03/11/17 03/21/17 History release coenzyme Q10 10 mg capsule 10 mg PO DAILY 03/11/17 03/21/17 History fluticasone 50 mcg/actuation nasal 50 mcg INTRANASAL ONCE 03/11/17 03/20/17 History spray,suspension lisinopril 20 mg tablet 20 mg PO DAILY 03/11/17 03/21/17 History metformin 500 mg tablet 500 mg PO BID 03/11/17 03/20/17 History omeprazole magnesium 20 mg 20 mg PO DAILY tab 03/11/17 03/20/17 History tablet,delayed release oxycodone-acetaminophen 10 mg-325 1 tab PO Q4-6H PRN 03/11/17 03/20/17 History mg tablet prasugrel 10 mg tablet 10 mg PO DAILY 03/11/17 03/21/17 History ranolazine ER 1,000 mg 1,000 mg PO BID 03/11/17 03/21/17 History tablet,extended release,12 hr rosuvastatin 20 mg tablet 20 mg PO HS 03/11/17 03/21/17 History triamterene 37.5 0.5 tab PO QAM tab 03/11/17 03/20/17 History mg-hydrochlorothiazide 25 mg tablet venlafaxine ER 75 mg 75 mg PO QHS 03/11/17 03/20/17 History capsule,extended release 24 hr dextroamphetamine-amphetamine 20 20 mg PO BID tab 03/17/17 03/21/17 History mg tablet Bisoprolol Fumarate [Zebeta 5mg 5 mg PO DAILY 03/20/17 03/21/17 History tablet] Allergies Allergy/AdvReac Type Severity Reaction Status Date / Time latex Allergy Intermediate I-RASH Verified 03/20/17 19:35 Review of Systems - *Cardiovascular Reports chest pain - *Respiratory Reports shortness of breath - *Neurologic Denies dizziness, Denies headache(s) Exam Vital signs and Labs for Last 24 Hours: Temp Pulse Resp BP Pulse Ox 98.7 F 74 20 93/40 95 03/22/17 03:30 03/22/17 06:06 03/22/17 03:30 03/22/17 03:30 03/22/17 03:30 I & O for Last 24 hours: Intake & Output 03/19/17 03/20/17 03/21/17 03/22/17 11:59 11:59 11:59 11:59 Intake Total 458 / 458 720 / 720 Output Total 800 / 800 Balance 458 / 458 -80 / -80 Weight 295 lb - *Routine Neck Exam Absent: JVD, carotid bruit - *Routine Respiratory Exam Present: wheezes, diminished air movement - *Routine Cardiovascular Exam Present: RRR. Absent: murmur, gallop - *Routine Extremities Exam Absent: edema - *Routine Neurological Exam Present: alert, oriented X3, moving all extremities Assessment and Plan (1) Chest pain Current visit: Yes Status: Acute Category: Medical Code(s): R07.9 -
--- NOTE | 2017-03-22 09:42 | P.CONCA_ITS ---
History of Present Illness Consult date: 03/22/17 Requesting physician: Odette Aiken Consult reason: chest pain Chief complaint: chest pain History of present illness: 51-year-old white male admitted for flu with increasing cough and shortness of breath. Patient had chest discomfort on admission for which nitroglycerin paste was applied with relief of symptoms about 45 minutes later. No recurrence of chest pain since then. Cardiology asked to see for further evaluation. Cardiac enzymes have returned and remained normal with EKG showing chronic changes in sinus rhythm. Patient denies any exertional shortness of breath prior to current illness. He does have a history of coronary artery stent of the LAD in June of last year. [facility] History Medical History: Reports:: Anxiety, Coronary Artery Disease, Depression, Diabetes Mellitus Type 2, Gastroesophageal Reflux Disease(GERD), Hyperlipidemia , Hypertension, Valvular Heart Disease Laterality Cases: Bilateral: Carpal Tunnel Release Other Surgeries: Yes: Coronary Stent, Other (carpal tunnel) - *Social History Educational Level: Attended High School Smoking Status: Never smoker Alcohol Intake: current Alcohol Intake Frequency:: a few times a week Occupational Status: employed Housing: house Household Members: spouse, children - Psychiatric History Expresses thoughts of harming self/others: None Suicide Plan Description: No Plan Pschychiatric History:: Reports:: Anxiety, Depression *Family Hx:: Cancer, Coronary Artery Disease Meds Home Medications Medication Instructions Recorded Confirmed Type aspirin 81 mg tablet,delayed 81 mg PO DAILY 03/11/17 03/21/17 History release coenzyme Q10 10 mg capsule 10 mg PO DAILY 03/11/17 03/21/17 History fluticasone 50 mcg/actuation nasal 50 mcg INTRANASAL ONCE 03/11/17 03/20/17 History spray,suspension lisinopril 20 mg tablet 20 mg PO DAILY 03/11/17 03/21/17 History metformin 500 mg tablet 500 mg PO BID 03/11/17 03/20/17 History omeprazole magnesium 20 mg 20 mg PO DAILY tab 03/11/17 03/20/17 History tablet,delayed release oxycodone-acetaminophen 10 mg-325 1 tab PO Q4-6H PRN 03/11/17 03/20/17 History mg tablet prasugrel 10 mg tablet 10 mg PO DAILY 03/11/17 03/21/17 History ranolazine ER 1,000 mg 1,000 mg PO BID 03/11/17 03/21/17 History tablet,extended release,12 hr rosuvastatin 20 mg tablet 20 mg PO HS 03/11/17 03/21/17 History triamterene 37.5 0.5 tab PO QAM tab 03/11/17 03/20/17 History mg-hydrochlorothiazide 25 mg tablet venlafaxine ER 75 mg 75 mg PO QHS 03/11/17 03/20/17 History capsule,extended release 24 hr dextroamphetamine-amphetamine 20 20 mg PO BID tab 03/17/17 03/21/17 History mg tablet Bisoprolol Fumarate [Zebeta 5mg 5 mg PO DAILY 03/20/17 03/21/17 History tablet] Allergies Allergy/AdvReac Type Severity Reaction Status Date / Time latex Allergy Intermediate I-RASH Verified 03/20/17 19:35 Review of Systems - *Cardiovascular Reports chest pain - *Respiratory Reports shortness of breath - *Neurologic Denies dizziness, Denies headache(s) Exam Vital signs and Labs for Last 24 Hours: Temp Pulse Resp BP Pulse Ox 98.7 F 74 20 93/40 95 03/22/17 03:30 03/22/17 06:06 03/22/17 03:30 03/22/17 03:30 03/22/17 03:30 I & O for Last 24 hours: Intake & Output
--- NOTE | 2017-03-22 16:02 | PC.NURSE ---
Lungs with rhonchi and wheezes, right greater than left. Pt uses personal cpap while sleeping, otherwise on RA. NSR on telemetry. Pt has denied chest pain thus far. He has slept the majority of the day. No complaints stated. Family at bedside. Will continue to monitor.
--- NOTE | 2017-03-22 16:58 | HMH.ACPN2 ---
Internal Medicine - PN: Subj *Date: 03/22/17 *Time: 16:58 Interval history: Says he has not felt well today. Cardiolyte report shows decreased EF and possible area of infarct inferiorly. Dr. Aiken spoke with Dr. Coyle who recommends cath in AM. Weight is stable. Repeat CXR ordered. Exam Vital signs and Labs for Last 24 Hours: Temp Pulse Resp BP Pulse Ox 98.9 F 67 20 141/70 98 03/22/17 16:00 03/22/17 16:00 03/22/17 16:00 03/22/17 16:00 03/22/17 16:00 I & O for Last 24 hours: Intake & Output 03/20/17 03/21/17 03/22/17 03/23/17 11:59 11:59 11:59 11:59 Intake Total 458 / 458 720 / 720 600 / 600 Output Total 800 / 800 Balance 458 / 458 -80 / -80 600 / 600 Weight 295 lb Assessment and Plan (1) Chest pain Current visit: Yes Status: Acute Category: Medical Code(s): R07.9 - Chest pain, unspecified (2) Influenza Current visit: Yes Status: Acute Category: Medical Code(s): J11.1 - Influenza due to unidentified influenza virus with other respiratory manifestations (3) HTN (hypertension) Current visit: No Status: Chronic Qualifiers: Hypertension type: essential hypertension Qualified Code(s): I10 - Essential (primary) hypertension Category: Medical Code(s): I10 - Essential (primary) hypertension (4) CAD (coronary artery disease) Current visit: No Status: Chronic Qualifiers: Coronary Disease-Associated Artery/Lesion type: [place] artery [place] vs. transplanted heart: [place] heart Associated angina: without angina Qualified Code(s): I25.10 - Atherosclerotic heart disease of [place] coronary artery without angina pectoris Category: Medical Code(s): I25.10 - Atherosclerotic heart disease of [place] coronary artery without angina pectoris (5) Diabetes mellitus Current visit: No Status: Chronic Qualifiers: Diabetes mellitus type: type 2 Diabetes mellitus complication status: without complication Diabetes mellitus detention insulin use: unspecified medical terminologist insulin use status Qualified Code(s): E11.9 - Type 2 diabetes mellitus without complications Category: Medical Code(s): E11.9 - Type 2 diabetes mellitus without complications (6) LETY (obstructive sleep apnea) Current visit: No Status: Chronic Category: Medical Code(s): G47.33 - Obstructive sleep apnea (adult) (pediatric) (7) Stented coronary artery Current visit: No Status: Chronic Category: Surgical Code(s): Z95.5 - Presence of coronary angioplasty implant and graft (8) Right otitis externa Current visit: Yes Status: Acute Category: Medical Code(s): H60.91 - Unspecified otitis externa, right ear - Assessment and plan all Dx Assessment and Plan for all problems:: Cath in AM. Repeat CXR.
--- NOTE | 2017-03-22 17:01 | P.PN_ITS ---
Internal Medicine - PN: Subj *Date: 03/22/17 *Time: 16:58 Interval history: Says he has not felt well today. Cardiolyte report shows decreased EF and possible area of infarct inferiorly. Dr. Aiken spoke with Dr. Coyle who recommends cath in AM. Weight is stable. Repeat CXR ordered. Exam Vital signs and Labs for Last 24 Hours: Temp Pulse Resp BP Pulse Ox 98.9 F 67 20 141/70 98 03/22/17 16:00 03/22/17 16:00 03/22/17 16:00 03/22/17 16:00 03/22/17 16:00 I & O for Last 24 hours: Intake & Output 03/20/17 03/21/17 03/22/17 03/23/17 11:59 11:59 11:59 11:59 Intake Total 458 / 458 720 / 720 600 / 600 Output Total 800 / 800 Balance 458 / 458 -80 / -80 600 / 600 Weight 295 lb Assessment and Plan (1) Chest pain Current visit: Yes Status: Acute Category: Medical Code(s): R07.9 - Chest pain, unspecified (2) Influenza Current visit: Yes Status: Acute Category: Medical Code(s): J11.1 - Influenza due to unidentified influenza virus with other respiratory manifestations (3) HTN (hypertension) Current visit: No Status: Chronic Qualifiers: Hypertension type: essential hypertension Qualified Code(s): I10 - Essential (primary) hypertension Category: Medical Code(s): I10 - Essential (primary) hypertension (4) CAD (coronary artery disease) Current visit: No Status: Chronic Qualifiers: Coronary Disease-Associated Artery/Lesion type: [place] artery [place] vs. transplanted heart: [place] heart Associated angina: without angina Qualified Code(s): I25.10 - Atherosclerotic heart disease of [place] coronary artery without angina pectoris Category: Medical Code(s): I25.10 - Atherosclerotic heart disease of [place] coronary artery without angina pectoris (5) Diabetes mellitus Current visit: No Status: Chronic Qualifiers: Diabetes mellitus type: type 2 Diabetes mellitus complication status: without complication Diabetes mellitus senior living insulin use: unspecified termination clerk insulin use status Qualified Code(s): E11.9 - Type 2 diabetes mellitus without complications Category: Medical Code(s): E11.9 - Type 2 diabetes mellitus without complications (6) LETY (obstructive sleep apnea) Current visit: No Status: Chronic Category: Medical Code(s): G47.33 - Obstructive sleep apnea (adult) (pediatric) (7) Stented coronary artery Current visit: No Status: Chronic Category: Surgical Code(s): Z95.5 - Presence of coronary angioplasty implant and graft (8) Right otitis externa Current visit: Yes Status: Acute Category: Medical Code(s): H60.91 - Unspecified otitis externa, right ear - Assessment and plan all Dx Assessment and Plan for all problems:: Cath in AM. Repeat CXR.
--- NOTE | 2017-03-22 17:02 | XR_ITS ---
XR chest 2V HISTORY: ITS.REASON: Bronchitis ORDERING PHYSICIAN: Odette Aiken MD PATIENT AGE: 51 years COMPARISON: 03 20 17 FINDINGS: There is mild cardiomegaly without failure. Nodular opacity is once again noted in the right upper lobe. No lobar consolidation or collapse with no significant change. IMPRESSION: Cardiomegaly, no change with no acute finding.
--- NOTE | 2017-03-22 18:58 | PC.NURSE ---
report given to meron schulz rn
[2017-03-23] VITALS (27 sets, daily range): BP systolic 95–124; BP diastolic 40–76; PULSE 60–76; RESP 16–20; TEMP 36.6–37.8; O2SAT 92–99; BMI 42.2
--- NOTE | 2017-03-23 | IR_ITS ---
CARDIAC CATHETERIZATION DATE OF CATHETERIZATION:03/23/2017 11:11 AM PROCEDURES: 1. Left heart catheterization 2. Left ventriculogram 3. Selective coronary angiogram INDICATION FOR TEST: 1. Abnormal Myoview 2. New onset congestive heart failure Informed consent was obtained prior to the procedure. COMPLICATIONS: None ESTIMATED BLOOD LOSS: Less than 10 ml. TECHNIQUE: One percent lidocaine used to anesthetize the right anterior aspect of the wrist. The right radial artery was accessed via the Seldinger technique. A 6 [place] sheath was placed in the right radial artery. 2.5 mg of verapamil, 800 mcg of nitroglycerin and 5000 U Heparin were given through the arterial sheath. The trap catheter was also used to perform left heart catheterization and left ventriculography. At the end of the procedure the patient was transferred to the post-op holding area in stable condition for arterial sheath removal. ANGIOGRAPHIC RESULTS: 1. The left main artery normal 2. The left anterior descending artery normal 3. The circumflex artery normal 4. The right coronary artery normal 5. The CHO ventriculogram reveals mildly dilated with preserved ejection fraction at 50% 6. The left ventricular end-diastolic pressure elevated at 20 to 25 mmHg IMPRESSION: 1. Normal coronary arteries. 2. Mild left ventricular dilatation with preserved ejection fraction 3. Elevated LVEDP consistent with diastolic dysfunction PLAN: 1. Diuretics for diastolic heart failure 2. Risk factor modification
--- NOTE | 2017-03-23 03:52 | PC.NURSE ---
PATIENT SEEMS TO HAVE RESTED FAIR THIS SHIFT. HE STATES HE DOES NOT FEEL MUCH BETTER. HE DID HAVE A FEVER OF 100.1 X1 THIS SHIFT AND RECEIVED PRN TYLENOL, WHICH BROUGHT HIS TEMP DOWN. PATIENT HAS BEEN NPO SINCE MIDNIGHT IN PREPARATION FOR HEART CATH IN AM. HE STATES THAT HE STILL GETS SOA ON EXERTION. NO DISTRESS NOTED. PATIENT IS CURRENTLY IN BED ASLEEP. NO OTHER PROBLEMS NOTED AT THIS TIME. VSS. WILL CONTINUE TO MONITOR. SAFETY MEASURES IN PLACE, CALL LIGHT IN REACH.
--- NOTE | 2017-03-23 07:52 | HMH.ACPN2 ---
Internal Medicine - PN: Subj *Date: 03/23/17 *Time: 07:52 Interval history: Patient states he still not feeling well today. Still coughing up blood. He did sleep well last night. He has not had any breakfast as he is supposed to have a heart cath this morning. Exam Vital signs and Labs for Last 24 Hours: Temp Pulse Resp BP Pulse Ox 98.0 F 60 20 106/51 99 03/23/17 07:43 03/23/17 07:43 03/23/17 07:43 03/23/17 07:43 03/23/17 07:43 I & O for Last 24 hours: Intake & Output 03/20/17 03/21/17 03/22/17 03/23/17 11:59 11:59 11:59 11:59 Intake Total 458 / 458 720 / 720 1080 / 1080 Output Total 800 / 800 Balance 458 / 458 -80 / -80 1080 / 1080 Weight 295 lb Radiology Reports for the Last 24 Hours: CXR - cardiomegaly, nothing acute - Constitutional no acute distress - *Routine Respiratory Exam Present: wheezes. Absent: rales - *Routine Cardiovascular Exam Present: RRR - *Routine Abdominal Exam Present: soft, normoactive bowel sounds. Absent: tenderness - *Routine Extremities Exam Absent: edema Assessment and Plan (1) Chest pain Current visit: Yes Status: Acute Category: Medical Code(s): R07.9 - Chest pain, unspecified (2) Influenza Current visit: Yes Status: Acute Category: Medical Code(s): J11.1 - Influenza due to unidentified influenza virus with other respiratory manifestations (3) HTN (hypertension) Current visit: No Status: Chronic Qualifiers: Hypertension type: essential hypertension Qualified Code(s): I10 - Essential (primary) hypertension Category: Medical Code(s): I10 - Essential (primary) hypertension (4) CAD (coronary artery disease) Current visit: No Status: Chronic Qualifiers: Coronary Disease-Associated Artery/Lesion type: [place] artery [place] vs. transplanted heart: [place] heart Associated angina: without angina Qualified Code(s): I25.10 - Atherosclerotic heart disease of [place] coronary artery without angina pectoris Category: Medical Code(s): I25.10 - Atherosclerotic heart disease of [place] coronary artery without angina pectoris (5) Diabetes mellitus Current visit: No Status: Chronic Qualifiers: Diabetes mellitus type: type 2 Diabetes mellitus complication status: without complication Diabetes mellitus equipment operator intermodal yard insulin use: unspecified equipment operator intermodal yard insulin use status Qualified Code(s): E11.9 - Type 2 diabetes mellitus without complications Category: Medical Code(s): E11.9 - Type 2 diabetes mellitus without complications (6) LETY (obstructive sleep apnea) Current visit: No Status: Chronic Category: Medical Code(s): G47.33 - Obstructive sleep apnea (adult) (pediatric) (7) Stented coronary artery Current visit: No Status: Chronic Category: Surgical Code(s): Z95.5 - Presence of coronary angioplasty implant and graft (8) Right otitis externa Current visit: Yes Status: Acute Category: Medical Code(s): H60.91 - Unspecified otitis externa, right ear - Assessment and plan all Dx Assessment and Plan for all problems:: Pt awaiting heart cath this am.
--- NOTE | 2017-03-23 07:55 | P.PN_ITS ---
Internal Medicine - PN: Subj *Date: 03/23/17 *Time: 07:52 Interval history: Patient states he still not feeling well today. Still coughing up blood. He did sleep well last night. He has not had any breakfast as he is supposed to have a heart cath this morning. Exam Vital signs and Labs for Last 24 Hours: Temp Pulse Resp BP Pulse Ox 98.0 F 60 20 106/51 99 03/23/17 07:43 03/23/17 07:43 03/23/17 07:43 03/23/17 07:43 03/23/17 07:43 I & O for Last 24 hours: Intake & Output 03/20/17 03/21/17 03/22/17 03/23/17 11:59 11:59 11:59 11:59 Intake Total 458 / 458 720 / 720 1080 / 1080 Output Total 800 / 800 Balance 458 / 458 -80 / -80 1080 / 1080 Weight 295 lb Radiology Reports for the Last 24 Hours: CXR - cardiomegaly, nothing acute - Constitutional no acute distress - *Routine Respiratory Exam Present: wheezes. Absent: rales - *Routine Cardiovascular Exam Present: RRR - *Routine Abdominal Exam Present: soft, normoactive bowel sounds. Absent: tenderness - *Routine Extremities Exam Absent: edema Assessment and Plan (1) Chest pain Current visit: Yes Status: Acute Category: Medical Code(s): R07.9 - Chest pain, unspecified (2) Influenza Current visit: Yes Status: Acute Category: Medical Code(s): J11.1 - Influenza due to unidentified influenza virus with other respiratory manifestations (3) HTN (hypertension) Current visit: No Status: Chronic Qualifiers: Hypertension type: essential hypertension Qualified Code(s): I10 - Essential (primary) hypertension Category: Medical Code(s): I10 - Essential (primary) hypertension (4) CAD (coronary artery disease) Current visit: No Status: Chronic Qualifiers: Coronary Disease-Associated Artery/Lesion type: [place] artery [place] vs. transplanted heart: [place] heart Associated angina: without angina Qualified Code(s): I25.10 - Atherosclerotic heart disease of [place] coronary artery without angina pectoris Category: Medical Code(s): I25.10 - Atherosclerotic heart disease of [place] coronary artery without angina pectoris (5) Diabetes mellitus Current visit: No Status: Chronic Qualifiers: Diabetes mellitus type: type 2 Diabetes mellitus complication status: without complication Diabetes mellitus exterminator termite insulin use: unspecified exterminator termite insulin use status Qualified Code(s): E11.9 - Type 2 diabetes mellitus without complications Category: Medical Code(s): E11.9 - Type 2 diabetes mellitus without complications (6) LETY (obstructive sleep apnea) Current visit: No Status: Chronic Category: Medical Code(s): G47.33 - Obstructive sleep apnea (adult) (pediatric) (7) Stented coronary artery Current visit: No Status: Chronic Category: Surgical Code(s): Z95.5 - Presence of coronary angioplasty implant and graft (8) Right otitis externa Current visit: Yes Status: Acute Category: Medical Code(s): H60.91 - Unspecified otitis externa, right ear - Assessment and plan all Dx Assessment and Plan for all problems:: Pt awaiting heart cath this am.
[2017-03-23 09:45] LABS: Basophils % 0.3 % (0.1-2.0); Eosinophils % 0.4 % (0.1-12.0); Hemoglobin 13.3 g/dL (14.1-18.0); Lymphocytes # 2.3 K/mm3 (0.7-4.5); Lymphocytes % 27.8 K/mm3 (10-50); Mean Corpuscular HGB Conc 33.3 g/dL (31.8-35.4); Mean Corpuscular Hemoglobin 30.8 pg (27.0-31.2); Mean Corpuscular Volume 92.4 fl (80-94); Mean Platelet Volume 8.2 fl (7.4-10.4); Monocytes # 0.4 K/mm3 (0.1-1.0); Monocytes % 5.3 % (1.7-9.3); Neutrophils # 5.5 K/mm3 (1.8-7.8); Neutrophils % 66.1 % (37.0-80.0); Platelet Count 176 K/mm3 (142-424); Red Blood Count 4.33 M/mm3 (4.60-6.20); Red Cell Distribution Width 13.4 % (11.5-17.5); White Blood Count 8.4 K/mm3 (4.8-10.8)
--- NOTE | 2017-03-23 12:38 | HMH.PNCARD ---
Subjective Date: 03/23/17 Time: 12:38 Principal diagnosis: CAD, Cardiomyopathy Interval history: 51 yo WM seen earlier this AM prior to cardiac cath. No chest pain except with cough. Some blood tinged sputum with coughing. Cardiac cath report reviewed with normal coronary arteries, LVEF of 50% and elevated LVEDP noted. Will give a dose of IV lasix today and consider increasing daily maxzide dose for treatment. Review of Systems - *Cardiovascular Reports chest pain - *Respiratory Reports shortness of breath - *Neurologic Denies dizziness, Denies headache(s) Meds Home Medications Medication Instructions Recorded Confirmed Type aspirin 81 mg tablet,delayed 81 mg PO DAILY 03/11/17 03/21/17 History release coenzyme Q10 10 mg capsule 10 mg PO DAILY 03/11/17 03/21/17 History fluticasone 50 mcg/actuation nasal 50 mcg INTRANASAL ONCE 03/11/17 03/20/17 History spray,suspension lisinopril 20 mg tablet 20 mg PO DAILY 03/11/17 03/21/17 History metformin 500 mg tablet 500 mg PO BID 03/11/17 03/20/17 History omeprazole magnesium 20 mg 20 mg PO DAILY tab 03/11/17 03/20/17 History tablet,delayed release oxycodone-acetaminophen 10 mg-325 1 tab PO Q4-6H PRN 03/11/17 03/20/17 History mg tablet prasugrel 10 mg tablet 10 mg PO DAILY 03/11/17 03/21/17 History ranolazine ER 1,000 mg 1,000 mg PO BID 03/11/17 03/21/17 History tablet,extended release,12 hr rosuvastatin 20 mg tablet 20 mg PO HS 03/11/17 03/21/17 History triamterene 37.5 0.5 tab PO QAM tab 03/11/17 03/20/17 History mg-hydrochlorothiazide 25 mg tablet venlafaxine ER 75 mg 75 mg PO QHS 03/11/17 03/20/17 History capsule,extended release 24 hr dextroamphetamine-amphetamine 20 20 mg PO BID tab 03/17/17 03/21/17 History mg tablet Bisoprolol Fumarate [Zebeta 5mg 5 mg PO DAILY 03/20/17 03/21/17 History tablet] Allergies Allergy/AdvReac Type Severity Reaction Status Date / Time latex Allergy Intermediate I-RASH Verified 03/20/17 19:35 Exam Vital signs and Labs for Last 24 Hours: Temp Pulse Resp BP Pulse Ox 98.0 F 64 20 106/51 99 03/23/17 07:43 03/23/17 09:35 03/23/17 07:43 03/23/17 07:43 03/23/17 08:00 Laboratory Results - last 24 hr 03/23/17 09:25: WBC 8.4, RBC 4.33 L, Hgb 13.3 L, Hct 40.0 L, MCV 92.4, MCH 30.8, MCHC 33.3, RDW 13.4, Plt Count 176, MPV 8.2, Neut % (Auto) 66.1, Lymph % (Auto) 27.8, [place] % (Auto) 5.3, Eos % (Auto) 0.4, Baso % (Auto) 0.3, Neut # (Auto) 5.5, Lymph # (Auto) 2.3, [place] # (Auto) 0.4, Eos # (Auto) 0.0, Baso # (Auto) 0.0 I & O for Last 24 hours: Intake & Output 03/21/17 03/22/17 03/23/17 03/24/17 11:59 11:59 11:59 11:59 Intake Total 458 / 458 720 / 720 1080 / 1080 Output Total 800 / 800 Balance 458 / 458 -80 / -80 1080 / 1080 Weight 295 lb - *Routine Respiratory Exam Present: rhonchi, wheezes - *Routine Cardiovascular Exam Present: RRR Plan - Patient/Caregiver Discharge Instructions Activity: Results as noted above. - Follow Up Plan
[2017-03-24] VITALS (9 sets, daily range): BP systolic 101–131; BP diastolic 56–79; PULSE 60–80; RESP 16–20; TEMP 36.8; O2SAT 96–99
--- NOTE | 2017-03-24 03:10 | PC.NURSE ---
Patient has been resting well with CPAP this shift. DRSG to Right wrist CDI. Patient has been afebrile and no complaints of SOA. Has had a infrequent cough through the shift. No complaints of pain. NSR on monitor. Patient is currently sleeping. VS stable. Will continue to monitor.
--- NOTE | 2017-03-24 04:47 | PC.NURSE ---
Patient accidentally removed IV. Patient refusing IV restart at this time. Will continue to monitor.
--- NOTE | 2017-03-24 07:20 | PC.NURSE ---
Received report from Apollo Cho RN
--- NOTE | 2017-03-24 08:22 | HMH.ACPN2 ---
Internal Medicine - PN: Subj *Date: 03/24/17 *Time: 08:22 Interval history: Pt states he feels awful today. He states he aches all over and actually feels like he has the flu. He is coughing but not as SOA. Still coughing up blood. He had a heart cath yesterday with normal coronaries. He wants to go home today. Exam Vital signs and Labs for Last 24 Hours: Temp Pulse Resp BP Pulse Ox 98.2 F 72 20 131/79 97 03/24/17 07:49 03/24/17 07:49 03/24/17 07:49 03/24/17 07:49 03/24/17 07:49 Laboratory Results - last 24 hr 03/23/17 09:25: WBC 8.4, RBC 4.33 L, Hgb 13.3 L, Hct 40.0 L, MCV 92.4, MCH 30.8, MCHC 33.3, RDW 13.4, Plt Count 176, MPV 8.2, Neut % (Auto) 66.1, Lymph % (Auto) 27.8, [place] % (Auto) 5.3, Eos % (Auto) 0.4, Baso % (Auto) 0.3, Neut # (Auto) 5.5, Lymph # (Auto) 2.3, [place] # (Auto) 0.4, Eos # (Auto) 0.0, Baso # (Auto) 0.0 I & O for Last 24 hours: Intake & Output 03/21/17 03/22/17 03/23/17 03/24/17 11:59 11:59 11:59 11:59 Intake Total 458 / 458 720 / 720 1080 / 1080 480 / 480 Output Total 800 / 800 400 / 400 Balance 458 / 458 -80 / -80 1080 / 1080 80 / 80 Weight 295 lb 295 lb 0.009 oz Radiology Reports for the Last 24 Hours: HEART CATH IMPRESSION: 1. Normal coronary arteries. 2. Mild left ventricular dilatation with preserved ejection fraction 3. Elevated LVEDP consistent with diastolic dysfunction PLAN: 1. Diuretics for diastolic heart failure 2. Risk factor modification - Constitutional no acute distress - *Routine Respiratory Exam Present: wheezes (faint, improved from yesterday) - *Routine Cardiovascular Exam Present: RRR - *Routine Abdominal Exam Present: soft, normoactive bowel sounds. Absent: tenderness - *Routine Extremities Exam Absent: edema Assessment and Plan (1) Chest pain Current visit: Yes Status: Acute Category: Medical Code(s): R07.9 - Chest pain, unspecified (2) Influenza Current visit: Yes Status: Acute Category: Medical Code(s): J11.1 - Influenza due to unidentified influenza virus with other respiratory manifestations (3) HTN (hypertension) Current visit: No Status: Chronic Qualifiers: Hypertension type: essential hypertension Qualified Code(s): I10 - Essential (primary) hypertension Category: Medical Code(s): I10 - Essential (primary) hypertension (4) CAD (coronary artery disease) Current visit: No Status: Chronic Qualifiers: Coronary Disease-Associated Artery/Lesion type: [place] artery [place] vs. transplanted heart: [place] heart Associated angina: without angina Qualified Code(s): I25.10 - Atherosclerotic heart disease of [place] coronary artery without angina pectoris Category: Medical Code(s): I25.10 - Atherosclerotic heart disease of [place] coronary artery without angina pectoris (5) Diabetes mellitus Current visit: No Status: Chronic Qualifiers: Diabetes mellitus type: type 2 Diabetes mellitus complication status: without complication Diabetes mellitus equipment operator intermodal yard insulin use: unspecified equipment operator intermodal yard insulin use status Qualified Code(s): E11.9 - Type 2 diabetes mellitus without complications Category: Medical Code(s): E11.9 - Type 2 diabetes mellitus without complications (6) LETY (obstructive sleep apnea) Current visit: No Status: Chronic Category: Medical Code(s): G47.33 - Obstructive sleep apnea (adult) (pediatric) (7) Stented coronary artery Current visit: No Status: Chronic Category: Surgical Code(s): Z95.5 - Presence of coronary angioplasty implant and graft (8) Right otitis externa Current visit: Yes Status: Acute Category: Medical Code(s): H60.91 - Unspecified otitis externa, right ear - Assessment and plan all Dx Assessment and Plan for all problems:: Cardiac cath reviewed. Possible discharge home today. Will discuss with Dr. Aiken.
--- NOTE | 2017-03-24 08:25 | P.PN_ITS ---
Internal Medicine - PN: Subj *Date: 03/24/17 *Time: 08:22 Interval history: Pt states he feels awful today. He states he aches all over and actually feels like he has the flu. He is coughing but not as SOA. Still coughing up blood. He had a heart cath yesterday with normal coronaries. He wants to go home today. Exam Vital signs and Labs for Last 24 Hours: Temp Pulse Resp BP Pulse Ox 98.2 F 72 20 131/79 97 03/24/17 07:49 03/24/17 07:49 03/24/17 07:49 03/24/17 07:49 03/24/17 07:49 Laboratory Results - last 24 hr 03/23/17 09:25: WBC 8.4, RBC 4.33 L, Hgb 13.3 L, Hct 40.0 L, MCV 92.4, MCH 30.8 , MCHC 33.3, RDW 13.4, Plt Count 176, MPV 8.2, Neut % (Auto) 66.1, Lymph % (Auto ) 27.8, [place] % (Auto) 5.3, Eos % (Auto) 0.4, Baso % (Auto) 0.3, Neut # (Auto) 5.5, Lymph # (Auto) 2.3, [place] # (Auto) 0.4, Eos # (Auto) 0.0, Baso # (Auto) 0.0 I & O for Last 24 hours: Intake & Output 03/21/17 03/22/17 03/23/17 03/24/17 11:59 11:59 11:59 11:59 Intake Total 458 / 458 720 / 720 1080 / 1080 480 / 480 Output Total 800 / 800 400 / 400 Balance 458 / 458 -80 / -80 1080 / 1080 80 / 80 Weight 295 lb 295 lb 0.009 oz Radiology Reports for the Last 24 Hours: HEART CATH IMPRESSION: 1. Normal coronary arteries. 2. Mild left ventricular dilatation with preserved ejection fraction 3. Elevated LVEDP consistent with diastolic dysfunction PLAN: 1. Diuretics for diastolic heart failure 2. Risk factor modification - Constitutional no acute distress - *Routine Respiratory Exam Present: wheezes (faint, improved from yesterday) - *Routine Cardiovascular Exam Present: RRR - *Routine Abdominal Exam Present: soft, normoactive bowel sounds. Absent: tenderness - *Routine Extremities Exam Absent: edema Assessment and Plan (1) Chest pain Current visit: Yes Status: Acute Category: Medical Code(s): R07.9 - Chest pain, unspecified (2) Influenza Current visit: Yes Status: Acute Category: Medical Code(s): J11.1 - Influenza due to unidentified influenza virus with other respiratory manifestations (3) HTN (hypertension) Current visit: No Status: Chronic Qualifiers: Hypertension type: essential hypertension Qualified Code(s): I10 - Essential (primary) hypertension Category: Medical Code(s): I10 - Essential (primary) hypertension (4) CAD (coronary artery disease) Current visit: No Status: Chronic Qualifiers: Coronary Disease-Associated Artery/Lesion type: [place] artery [place] vs. transplanted heart: [place] heart Associated angina: without angina Qualified Code(s): I25.10 - Atherosclerotic heart disease of [place] coronary artery without angina pectoris Category: Medical Code(s): I25.10 - Atherosclerotic heart disease of [place] coronary artery without angina pectoris (5) Diabetes mellitus Current visit: No Status: Chronic Qualifiers: Diabetes mellitus type: type 2 Diabetes mellitus complication status: without complication Diabetes mellitus nursing home insulin use: unspecified manager long term care insulin use status Qualified Code(s): E11.9 - Type 2 diabetes mellitus without complications Category: Medical Code(s): E11.9 - Type 2 diabetes mellitus without complications (6) LETY (obstructive sleep apnea) Current visit: No Status: Chronic Category: Medical Code(s): G47.33 - Obstructive sleep apnea (adult) (pediatric) (7) Stented coronary artery
--- NOTE | 2017-03-24 08:33 | P.PN_ITS ---
Subjective Date: 03/24/17 Time: 08:30 Principal diagnosis: CAD, Cardiomyopathy Interval history: 51-year-old white male in no acute distress. Patient relates myalgias today and states he feels like he has the flu for the first time at this time. Have some sinus congestion with increased pressure in the head when he coughs. Denies any chest pain. Review of Systems - *Cardiovascular Denies chest pain - *Respiratory Reports cough - *Neurologic Denies dizziness, Denies headache(s) Meds Home Medications Medication Instructions Recorded Confirmed Type aspirin 81 mg tablet,delayed 81 mg PO DAILY 03/11/17 03/21/17 History release coenzyme Q10 10 mg capsule 10 mg PO DAILY 03/11/17 03/21/17 History fluticasone 50 mcg/actuation nasal 50 mcg INTRANASAL ONCE 03/11/17 03/20/17 History spray,suspension lisinopril 20 mg tablet 20 mg PO DAILY 03/11/17 03/21/17 History metformin 500 mg tablet 500 mg PO BID 03/11/17 03/20/17 History omeprazole magnesium 20 mg 20 mg PO DAILY tab 03/11/17 03/20/17 History tablet,delayed release oxycodone-acetaminophen 10 mg-325 1 tab PO Q4-6H PRN 03/11/17 03/20/17 History mg tablet prasugrel 10 mg tablet 10 mg PO DAILY 03/11/17 03/21/17 History ranolazine ER 1,000 mg 1,000 mg PO BID 03/11/17 03/21/17 History tablet,extended release,12 hr rosuvastatin 20 mg tablet 20 mg PO HS 03/11/17 03/21/17 History triamterene 37.5 0.5 tab PO QAM tab 03/11/17 03/20/17 History mg-hydrochlorothiazide 25 mg tablet venlafaxine ER 75 mg 75 mg PO QHS 03/11/17 03/20/17 History capsule,extended release 24 hr dextroamphetamine-amphetamine 20 20 mg PO BID tab 03/17/17 03/21/17 History mg tablet Bisoprolol Fumarate [Zebeta 5mg 5 mg PO DAILY 03/20/17 03/21/17 History tablet] Allergies Allergy/AdvReac Type Severity Reaction Status Date / Time latex Allergy Intermediate I-RASH Verified 03/20/17 19:35 Exam Vital signs and Labs for Last 24 Hours: Temp Pulse Resp BP Pulse Ox 98.2 F 72 20 131/79 97 03/24/17 07:49 03/24/17 07:49 03/24/17 07:49 03/24/17 07:49 03/24/17 07:49 Laboratory Results - last 24 hr 03/23/17 09:25: WBC 8.4, RBC 4.33 L, Hgb 13.3 L, Hct 40.0 L, MCV 92.4, MCH 30.8 , MCHC 33.3, RDW 13.4, Plt Count 176, MPV 8.2, Neut % (Auto) 66.1, Lymph % (Auto ) 27.8, [place] % (Auto) 5.3, Eos % (Auto) 0.4, Baso % (Auto) 0.3, Neut # (Auto) 5.5, Lymph # (Auto) 2.3, [place] # (Auto) 0.4, Eos # (Auto) 0.0, Baso # (Auto) 0.0 I & O for Last 24 hours: Intake & Output 03/21/17 03/22/17 03/23/17 03/24/17 11:59 11:59 11:59 11:59 Intake Total 458 / 458 720 / 720 1080 / 1080 480 / 480 Output Total 800 / 800 400 / 400 Balance 458 / 458 -80 / -80 1080 / 1080 80 / 80 Weight 295 lb 295 lb 0.009 oz - *Routine Respiratory Exam Present: wheezes - *Routine Cardiovascular Exam Present: RRR Plan - Patient/Caregiver Discharge Instructions Activity: Cardiac status stable. Continue home medications. Okay for discharge from cardiology standpoint. Will be single dose of p.o. Lasix this a.m. as the patient's IV came out overnight. Follow-up with cardiology as previously scheduled. - Follow Up Plan
--- NOTE | 2017-03-24 14:05 | PC.NURSE ---
Pt ambulated off floor for discharge home escorted by this nurse. Pt in NAD and denies c/o at time of discharge.
--- NOTE | 2017-03-25 14:04 | HMH.DCSUM ---
General - General Admission date: 03/20/17 Discharge date: 03/24/17 HPI HPI: Mr Malhotra is a 51 year old white male with history of coronary artery disease status post stenting of the LAD in 2017. He experienced a productive cough with pressure like discomfort in the left anterior Chest yesterday. He presented to urgent treatment care where he was noted to be diaphoretic, short of breath, and reported having pressure type chest pain. He was diverted to the main ER. His systolic blood pressure was 150 and an EKG had V2 changes in comparison to an old EKG from June 07, 2016. Dr. Coyle, his director of employee development, was contacted who recommended obtaining blood work. He was then admitted for further evaluation and TX. Objective Vital signs: Temp Pulse Resp BP Pulse Ox 98.3 F 60 20 119/77 97 03/24/17 11:38 03/24/17 12:00 03/24/17 11:38 03/24/17 11:38 03/24/17 11:38 Narrative: - Constitutional no acute distress Comments: awakened form sleep for exam; wearing CPAP - *Routine HEENT Exam Head: Present: normocephalic, atraumatic Eye: Present: PERRL. Absent: scleral injection ENT: Present: mucous membranes moist Comments: right Ear canal with fluid - *Routine Neck Exam Present: supple, full ROM. Absent: carotid bruit, lymphadenopathy, thyromegaly - *Routine Respiratory Exam Absent: accessory muscle use Comments: bilateral inspiratory and expiratory wheezing throughout - *Routine Cardiovascular Exam Present: RRR - *Routine Abdominal Exam Present: soft, normoactive bowel sounds. Absent: tenderness, distended, guarding - *Routine Extremities Exam Comments: trace of leg edema - *Routine Neurological Exam Present: alert, oriented X3 Hospital Course Hospital Course: The patient was positive for the flu and was started on tamiflu. He was seen by cardiology who performed a cardiolyte stress test. It showed a decreased EF and a possible infarct inferiorly. He was therefore scheduled for a cath. His CXR showed only cardiomegaly. He had a cath and it showed normal coronaries, a LVEF of 50%, and an elevated LVEDP. He was given a dose of lasix and cardiology felt he could be discharged. He was stable to be discharged home on tamiflu. DS: Diagnosis - Discharge Diagnosis (1) Chest pain Status: Acute (2) Influenza Status: Acute (3) HTN (hypertension) Status: Chronic (4) CAD (coronary artery disease) Status: Chronic (5) Diabetes mellitus Status: Chronic (6) LETY (obstructive sleep apnea) Status: Chronic (7) Stented coronary artery Status: Chronic (8) Right otitis externa Status: Acute Discharge Plan - Patient Discharge Instructions ACTIVITY: Limited activity DIET: continue same diet Additional Instructions: Activity as tolerated Diet: Diabetic Patient Instructions: DI for Diabetes Type 1 -- Adult, DI for Influenza -- Adult - Follow up Plan Follow up with: Odette Aiken MD [Primary Care Provider] - 1 week Disposition: Home, Self-Skilled Nursing Medications: Home Medications Medication Instructions Recorded Confirmed Type aspirin 81 mg tablet,delayed 81 mg PO DAILY 03/11/17 03/21/17 History release coenzyme Q10 10 mg capsule 10 mg PO DAILY 03/11/17 03/21/17 History fluticasone 50 mcg/actuation nasal 50 mcg INTRANASAL ONCE 03/11/17 03/20/17 History spray,suspension lisinopril 20 mg tablet 20 mg PO DAILY 03/11/17 03/21/17 History metformin 500 mg tablet 500 mg PO BID 03/11/17 03/20/17 History omeprazole magnesium 20 mg 20 mg PO DAILY tab 03/11/17 03/20/17 History tablet,delayed release prasugrel 10 mg tablet 10 mg PO DAILY 03/11/17 03/21/17 History ranolazine ER 1,000 mg 1,000 mg PO BID 03/11/17 03/21/17 History tablet,extended release,12 hr rosuvastatin 20 mg tablet 20 mg PO HS 03/11/17 03/21/17 History triamterene 37.5 0.5 tab PO QAM tab 03/11/17 03/20/17 History mg-hydrochlorothiazide 25 mg tablet
--- NOTE | 2017-03-25 14:08 | P.DS_ITS ---
General - General Admission date: 03/20/17 Discharge date: 03/24/17 HPI HPI: Mr Malhotra is a 51 year old white male with history of coronary artery disease status post stenting of the LAD in 2017. He experienced a productive cough with pressure like discomfort in the left anterior Chest yesterday. He presented to urgent treatment care where he was noted to be diaphoretic, short of breath, and reported having pressure type chest pain. He was diverted to the main ER. His systolic blood pressure was 150 and an EKG had V2 changes in comparison to an old EKG from June 07, 2016. Dr. Coyle, his steak sauce maker, was contacted who recommended obtaining blood work. He was then admitted for further evaluation and TX. Objective Vital signs: Temp Pulse Resp BP Pulse Ox 98.3 F 60 20 119/77 97 03/24/17 11:38 03/24/17 12:00 03/24/17 11:38 03/24/17 11:38 03/24/17 11:38 Narrative: - Constitutional no acute distress Comments: awakened form sleep for exam; wearing CPAP - *Routine HEENT Exam Head: Present: normocephalic, atraumatic Eye: Present: PERRL. Absent: scleral injection ENT: Present: mucous membranes moist Comments: right Ear canal with fluid - *Routine Neck Exam Present: supple, full ROM. Absent: carotid bruit, lymphadenopathy, thyromegaly - *Routine Respiratory Exam Absent: accessory muscle use Comments: bilateral inspiratory and expiratory wheezing throughout - *Routine Cardiovascular Exam Present: RRR - *Routine Abdominal Exam Present: soft, normoactive bowel sounds. Absent: tenderness, distended, guarding - *Routine Extremities Exam Comments: trace of leg edema - *Routine Neurological Exam Present: alert, oriented X3 Hospital Course Hospital Course: The patient was positive for the flu and was started on tamiflu. He was seen by cardiology who performed a cardiolyte stress test. It showed a decreased EF and a possible infarct inferiorly. He was therefore scheduled for a cath. His CXR showed only cardiomegaly. He had a cath and it showed normal coronaries, a LVEF of 50%, and an elevated LVEDP. He was given a dose of lasix and cardiology felt he could be discharged. He was stable to be discharged home on tamiflu. DS: Diagnosis - Discharge Diagnosis (1) Chest pain Status: Acute (2) Influenza Status: Acute (3) HTN (hypertension) Status: Chronic (4) CAD (coronary artery disease) Status: Chronic (5) Diabetes mellitus Status: Chronic (6) LETY (obstructive sleep apnea) Status: Chronic (7) Stented coronary artery Status: Chronic (8) Right otitis externa Status: Acute Discharge Plan - Patient Discharge Instructions ACTIVITY: Limited activity DIET: continue same diet Additional Instructions: Activity as tolerated Diet: Diabetic Patient Instructions: DI for Diabetes Type 1 -- Adult, DI for Influenza -- Adult - Follow up Plan Follow up with: Odette Aiken MD [Primary Care Provider] - 1 week Disposition: Home, Self-Half-Way Medications: Home Medications Medication Instructions Recorded Confirmed Type aspirin 81 mg tablet,delayed 81 mg PO DAILY 03/11/17 03/21/17 History release coenzyme Q10 10 mg capsule 10 mg PO DAILY 03/11/17 03/21/17 History fluticasone 50 mcg/actuation nasal 50 mcg INTRANASAL ONCE 03/11/1703/10
== END 2017-03-24 14:06 | disposition home or self-care (01) | DRG 195 ==
LOC: UTC 18:00 → ER 19:14 → ICU 03-21 07:25 → 2ND 03-21 14:48
PROVIDERS: Emergency Medicine; Internal Medicine; Admitting Provider Family Medicine; Emergency Provider Nurse Practitioner; PCP Family Medicine; Visit Provider Family Medicine
PROC: 4A023N7 Measurement of Cardiac Sampling and Pressure, Left Heart, Percutaneous Approach (ICD-10-PCS; principal; 2017-03-23 09:45)
DX: J10.1 Influenza due to other identified influenza virus with other respiratory manifestations (principal); E11.9 Type 2 diabetes mellitus without complications; I25.10 Atherosclerotic heart disease of native coronary artery without angina pectoris; I10 Essential (primary) hypertension; Z95.5 Presence of coronary angioplasty implant and graft; G47.33 Obstructive sleep apnea (adult) (pediatric)
CPT/HCPCS: 36415; 71046; 78452; 80053; 82550; 82553; 84484; 85025; 87804; 93005; 93017; 93041; 93458; 94640; 94761; 99283; A9502; C1725; C1769; J1644; J2785; Q9967

== ENCOUNTER → 2017-04-19 14:02 | Outpatient (CLI) | payer BC, SELFPAY ==
--- NOTE | 2017-04-19 | CA_ITS ---
PROCEDURE: 2-D M-mode and color Doppler study INDICATIONS FOR THE TEST: Chest pain+ COPD Heart Murmur+ Tobacco Smoking Palpitations Fatigue Syncope Edema Hypertension+Diabetes Mellitus+ Rheumatic Fever SOB+MILLER+Obesity+Hyperlipidemia+ Family History HD Additional History dizziness, stent, LETY *DEFINITY contrast utilized PATIENT INFORMATION HEIGHT: 70 WEIGHT: 296 GENDER: Male B/P: 138/75 2-D/M-MODE INTERPRETATION: 2-D MEASUREMENTS OBSERVED VALUES IN CMS Right Ventricular Dimension (RVDd) 2.1 Interventricular Septum (Thickness)(IVsd) 1.6 Left Ventricular Internal Dimensions(LVIDd) 5.0 Left Ventricular Posterior Wall (Thickness)(LVPWd) 1.5 Aortic Root 3.4 Aortic Cusp Separation 2.5 Left Atrial Dimensions (LAD) 3.6 2D 1. Left atrium is mildly enlarged, left ventricle is normal size, there is mild concentric left ventricular hypertrophy, septum has sigmoid configuration, visually estimated ejection fraction of 55-60% with no obvious regional wall motion abnormality. 2. The right atrium and right ventricle are relatively normal size and function. 3. The aortic valve is minimally thickened and fibrosed. 4. The mitral and tricuspid valve leaflets are minimally thickened, there is systolic anterior motion of the mitral valve leaflets seen towards left ventricular outflow tract. 5. The pulmonic valve is poorly visualized 6. Pericardial effusion noted. DOPPLER INTERROGATION: Doppler interrogation of the aortic, mitral and tricuspid tricuspid valve reveals presence of increased velocities in the left ventricular outflow track, with resting gradient of 24 mmHg which increases 36 mmHg with valsalva suggestive of dynamic left ventricular outflow track obstruction. There is mild mitral regurgitation seen, grade 1 diastolic dysfunction seen with tissue Doppler evidence of raised left atrial pressure. CONCLUSION: 1. Mildly enlarged left atrium, normal left ventricular size, mild concentric left ventricular hypertrophy, septum has sigmoid configuration, visually estimated ejection fraction of 55-60% with no obvious regional wall motion abnormality, grade 1 diastolic dysfunction seen with tissue Doppler evidence of raised left atrial pressure. 2. The left ventricular outflow track obstruction due to is systolic anterior motion of the mitral valve leaflets, resting gradient of 24 mmHg which increases to 36 mmHg with valsalva suggestive of dynamic left ventricular outflow obstruction. 3. Mild mitral and tricuspid regurgitation. 4. No significant pericardial effusion noted.
== END ==
PROVIDERS: PCP Family Medicine; Visit Provider Internal Medicine Cardiovascular Disease
DX: I25.10 Atherosclerotic heart disease of native coronary artery without angina pectoris (principal); R06.00 Dyspnea, unspecified; I10 Essential (primary) hypertension; Z95.5 Presence of coronary angioplasty implant and graft; E78.5 Hyperlipidemia, unspecified; E11.9 Type 2 diabetes mellitus without complications; G47.33 Obstructive sleep apnea (adult) (pediatric)
CPT/HCPCS: 93306; Q9957

== ENCOUNTER → 2018-06-08 16:16 | Outpatient (CLI) | payer BC, SELFPAY ==
[2018-06-08 17:29] LABS: Basophils % 0.5 % (0.1-2.0); Eosinophils # 0.1 K/mm3 (0.0-0.4); Eosinophils % 1.5 % (0.1-12.0); Hematocrit 44.1 % (42.0-52.0); Hemoglobin 15.1 g/dL (14.1-18.0); Mean Corpuscular HGB Conc 34.2 g/dL (31.8-35.4); Mean Corpuscular Hemoglobin 31.3 pg (27.0-31.2); Mean Corpuscular Volume 91.6 fl (80-94); Mean Platelet Volume 7.7 fl (7.4-10.4); Monocytes # 0.3 K/mm3 (0.1-1.0); Monocytes % 4.7 % (1.7-9.3); Neutrophils # 3.8 K/mm3 (1.8-7.8); Neutrophils % 52.2 % (37.0-80.0); Platelet Count 243 K/mm3 (142-424); Red Blood Count 4.81 M/mm3 (4.60-6.20); Red Cell Distribution Width 13.6 % (11.5-17.5); White Blood Count 7.3 K/mm3 (4.8-10.8)
[2018-06-08 22:48] LABS: Anion Gap 14.7 mEq/L (5-15); Blood Urea Nitrogen 18 mg/dL (7-18); Calcium 9.1 mg/dL (8.5-10.1); Carbon Dioxide 25 mmol/L (21.0-32.0); Chloride 105 mmol/L (98-107); Creatinine,Serum 1.03 mg/dL (0.70-1.30); Estimated Glomerular Filt Rate 76 ml/min (>60); GFR (African American) 92 ML/MIN (>60); Glucose 151 mg/dL (74-106); Potassium 3.7 mmoL/L (3.5-5.1); Sodium 141 mmol/L (136-145)
== END ==
PROVIDERS: Visit Provider Otolaryngology
DX: Z01.818 Encounter for other preprocedural examination (principal); H60.91 Unspecified otitis externa, right ear; H91.91 Unspecified hearing loss, right ear; H69.91 Unspecified Eustachian tube disorder, right ear
CPT/HCPCS: 36415; 80048; 85025; 93005

== ENCOUNTER → 2018-10-19 07:55 | Outpatient (CLI) | payer BC, SELFPAY ==
--- NOTE | 2018-10-19 | CA_ITS ---
APPROVED REPORT Exam: Pharmacologic Technologist: clarence melendrez, Ht: 5 ft 10 in Wt: 297 lbs BSA: 2.47 m2 HR: 54 bpm BP: 118/71 mmHg Rhythm: SINUS BRADYCARDIA Indications: CP,SOB, Fatigue Medical History Medical History: CP,SOA,CAD Medications: Lisinopril,,,,, Asa,,,,, Metformin,,,,, Effexor,,,,, Prilosec,,,,, Crestor,,,,, BisOPROLOL,,,,, RoSUVASTATIN,,,,, Ranolazine,,,,, Allergies: LATEX Cardiac Risk Factors: HTN, Hyperlipidemia, DM Stress Test Details Test: LEXISCAN HR Resting HR: 62 bpm Max Heart Rate (APMHR): 169 bpm Max HR Achieved: 78 bpm Target HR (85% APMHR): 143 bpm % of APMHR: 46 Recovery HR: 71 bpm BP Resting BP: 118.0/71.0 mmHg Max BP: 124.0/73.0 mmHg Recovery BP: 121.0/69.0 mmHg ECG Resting ECG: SINUS BRADYCARDIA ST-T ABNORMALITIES INFERIORLY EARLY REPOLARIZATION CHANGES Clinical Exercise duration: 04:33 min Highest Stage Achieved: Stress ECG Conclusion DURING LEXISCAN INFUSION PATIENT HAD SOA AND MALAISE. NO CHEST PAIN. NO ARRHYTHMIAS/ECTOPY. MILD EXAGGERATION OF BASELINE ST-T ABNORMALITIES INFERIORLY. UNREMARKABLE LEXISCAN STRESS. MYOVIEW IMAGES REPORTED SEPARATELY. Electronically signed by : Ebenezer Nguyen, 10/19/2018 16:44:02
--- NOTE | 2018-10-19 07:57 | CA_ITS ---
APPROVED REPORT EXAM: Comprehensive 2D, Doppler, and color-flow Echocardiogram Automotive Glass Technician: Yesi Domingo CRT Ht: 5 ft 10 in Wt: 294lbs BSA: 2.46 BP: 141/80 mmHg Indications: Chest Pain, Shortness of Breath, Diabetes, Hypertension/HDD, stent, LETY, GERD 2D Dimensions LVOT 2.00 cm (M/F) 1.5-2.5 M-Mode Dimensions RVDd 2.70 cm (0.9-2.6) LA Diam 4.70 cm (1.9-4.0) LVDd 5.30 cm (3.5-5.7) Ao Diam 3.20 cm (2.0-3.7) LVDs 3.50 cm (3.5-5.7) AV Cusp 1.80 cm (1.5-2.6) IVSd 2.00 cm (0.6-1.1) PWd 0.90 cm (0.6-1.1) EF (Teich) 62.30% FS 34.00% EDV (Teich) 135.00 mL ESV (Teich) 50.90 mL LV Diastology E/A Ratio 1.30 MED E' 8.38 (< 7 cm/sec) E'/MED E' Ratio 12.40 (>14) LAT E' 10.20 (<10 cm/sec) E/LAT E' Ratio 10.20 (>14) Aortic Valve AoV Peak Ferny. 177.00 (50-130 cm/s) AO Peak GR. 13.00 mmHg Mitral Valve MV E Max Ferny. 104.00 (40-130 cm/s) MV A Velocity 78.00 (40-130 cm/s) E/A Ratio 1.30 Pulmonary Valve PA Accel Time 151.00 (>120 msec) Tricuspid Valve TR P. Velocity 224.00 cm/s RAP Estimate 10.00 mmHg RVSP 30.00 mmHg Left Ventricle Left atrium is mildly enlarged, left ventricle is normal size, there is mild concentric left ventricular hypertrophy, visually estimated ejection fraction approximately 45 to 50%, there is moderate hypokinesis involving the mid to distal septum and apical wall. Endocardial surfaces are poorly visualized. Grade 1 diastolic dysfunction seen without tissue Doppler evidence of raise left atrial pressure. Right Ventricle Right atrium and right ventricle are mildly enlarged with normal contractility. Aortic Valve Aortic valve is minimally thickened and fibrosed. There is no aortic stenosis aortic insufficiency. Mitral Valve Mitral valve is minimally thickened, there is no mitral stenosis, there is mild mitral regurgitation. Tricuspid Valve Tricuspid valve is grossly normal, there is mild tricuspid regurgitation. Tricuspid regurgitation jet velocity is inadequate for calculation of the right ventricular systolic pressure, inferior vena cava is normal size with normal inspiratory collapse. Pulmonic Valve Pulmonic valve is poorly visualized. Great Vessels Aortic root is normal size. Pericardium No significant pericardial effusion noted. Conclusion 1. Technically difficult study because of the patient factors and poor acoustic windows, normal left ventricular size, mild concentric left ventricular hypertrophy, visually estimated ejection fraction approximately 45 to 50% with segmental wall motion abnormality described above. Grade 1 diastolic dysfunction seen without tissue Doppler evidence of raise left atrial pressure. 2. Mild mitral and tricuspid regurgitation. 3. No significant pericardial effusion noted, inferior vena cava is normal size with normal inspiratory collapse. Electronically signed by : Ebenezer Nguyen, 10/20/2018 08:26:30
--- NOTE | 2018-10-19 07:57 | NM_ITS ---
APPROVED REPORT Exam: Nuclear Stress Test Indication: chest pain, short of breath, fatigue Patient Location: Outpatient Stress Tech: Lydia LottNydia [place] Tech:KONRAD Mondragon RT(R)(N) Ht: 5 ft 10 in Wt: 297 lbs BSA: 2.47 m2 HR: 54 bpm BP: 118/71 mmHg BMI: 42.6 History: chest pain, short of breath, fatigue Procedure: Patient received a 0.4 mg of intravenous Lexiscan, resting heart rate 54 bpm, resting blood pressure 118/71 mmHg, with Lexiscan maximum heart rate achived was 71 bpm which is Less than 85 % of the maximum predicted heart rate and blood pressure was 122/52 mmHg. With Lexiscan, patient denied any complaint of chest pain. Electrocardiogram Resting electrocardiogram showed sinus bradycardia early repolarization changes, with Lexiscan there is less than 1.[address] segment depression noted from the baseline EKG. The EKG portion of the Lexiscan Myoview is nondiagnostic. Cardiac Stress and Resting SPECT Images: Cardiac Stress and Resting SPECT images were obtained using technetium 99m Myoview 32.8 mCi stress and 10.20 mCi at rest. Gated SPECT with analysis of segmental wall motion and calculation of the ejection fraction also done. Cardiac stress and resting SPECT images show a mild fixed defect in the inferior wall with decreased contractility in the inferior wall is likely secondary to nontransmural myocardial scarring, computer derived ejection fraction is over 65% with mild inferior wall hypokinesis. Right ventricle is normal size and contractility. Conclusion: 1. The EKG portion of the Lexiscan Myoview is nondiagnostic. 2. Scintigraphic evidence of nontransmural myocardial scarring involving the inferior wall, computer derived ejection fraction is over 65% with segmental wall motion abnormality described above, right ventricle is normal size and contractility. 3. Abnormal Lexiscan Myoview study. Electronically signed by : Ebenezer Nguyen, 10/19/2018 16:18:01
--- NOTE | 2018-10-19 10:56 | HMH.ITSHM ---
Current Home Medications as stated by this patient Elias Malhotra or sales representative business courses. [] effexor rosuvastatin bisoprolol lisinopril asa ranalania prilosce crestor
== END ==
PROVIDERS: PCP Family Medicine; Visit Provider Internal Medicine Cardiovascular Disease
DX: R07.9 Chest pain, unspecified (principal); R06.02 Shortness of breath; I25.10 Atherosclerotic heart disease of native coronary artery without angina pectoris; E11.9 Type 2 diabetes mellitus without complications; E78.2 Mixed hyperlipidemia; I10 Essential (primary) hypertension; G47.33 Obstructive sleep apnea (adult) (pediatric); Z95.5 Presence of coronary angioplasty implant and graft; Z79.84 Long term (current) use of oral hypoglycemic drugs
CPT/HCPCS: 78452; 93017; 93306; A9502; J2785

== ENCOUNTER → 2018-11-10 10:37 | Outpatient (CLI) | payer BC, SELFPAY ==
[2018-11-10 11:39] LABS: Anion Gap 14.5 mEq/L (5-15); Blood Urea Nitrogen 21 mg/dL (7-18); Calcium 9.8 mg/dL (8.5-10.1); Carbon Dioxide 28 mmol/L (21.0-32.0); Chloride 101 mmol/L (98-107); Creatinine,Serum 1.17 mg/dL (0.70-1.30); Estimated Glomerular Filt Rate 65 ml/min (>60); GFR (African American) 79 ML/MIN (>60); Glucose 190 mg/dL (74-106); Potassium 4.5 mmoL/L (3.5-5.1); Sodium 139 mmol/L (136-145)
== END ==
PROVIDERS: Visit Provider Internal Medicine Cardiovascular Disease
DX: E78.5 Hyperlipidemia, unspecified (principal); I20.8 Other forms of angina pectoris; I25.10 Atherosclerotic heart disease of native coronary artery without angina pectoris; R06.00 Dyspnea, unspecified; Z95.5 Presence of coronary angioplasty implant and graft
CPT/HCPCS: 36415; 80048

== ENCOUNTER → 2018-12-08 10:40 | Outpatient (CLI) | payer BC, SELFPAY ==
[2018-12-08 10:57] LABS: Microscopic, Urine URINE MICROSCOPIC (MICROSCOPIC)
--- NOTE | 2018-12-08 11:11 | XR_ITS ---
PROCEDURE: XR KUB CLINICAL INDICATION: kidney pain Flank pain COMPARISON: ABDPELW/O CT ABD PELVIS W/O CONTRAST from 08/04/2014 FINDINGS: Moderate amount of retained colonic feces somewhat obscuring the renal outlines. No definite renal or ureteral calculi. There are multiple pelvic calcifications present which may be due to phleboliths. A nonspecific linear opacity overlies the middle aspect of the left ilium IMPRESSION: No acute findings. Dictated by: Itz Leon MD 12/08/2018 14:29 Electronically signed by Itz Leon MD in [place] 12/08/2018 14:29
[2018-12-08 11:14] LABS: Appearance,Urine CLEAR (Clear); Bilirubin,Urine Negative (Negative); Blood, Urine Negative (Negative); Color,Urine YELLOW (Yellow); Glucose,Urine (UA) Negative (Negative); Ketones,Urine Negative (Negative); Leukocyte Esterase,Urine Negative (Negative); Nitrate,Urine Negative (Negative); Protein,Urine Negative (Negative); Urobilinogen,Urine 0.2 EU/dl (0.2)
[2018-12-08 11:28] LABS: Squamous Epithelial Cell,Urine Occasional #/hpf (0-5); WBC,Urine Occasional #/hpf (0-3)
[2018-12-08 11:33] LABS: Basophils % 0.5 % (0.1-2.0); Eosinophils # 0.1 K/mm3 (0.0-0.4); Eosinophils % 1.6 % (0.1-12.0); Hematocrit 43.7 % (42.0-52.0); Hemoglobin 14.2 g/dL (14.1-18.0); Lymphocytes # 2.7 K/mm3 (0.7-4.5); Lymphocytes % 39.4 % (10-50); Mean Corpuscular HGB Conc 32.5 g/dL (31.8-35.4); Mean Corpuscular Hemoglobin 31.1 pg (27.0-31.2); Mean Corpuscular Volume 95.9 fl (80-94); Mean Platelet Volume 8.5 fl (7.4-10.4); Monocytes # 0.4 K/mm3 (0.1-1.0); Monocytes % 5.9 % (1.7-9.3); Neutrophils # 3.6 K/mm3 (1.8-7.8); Neutrophils % 52.8 % (37.0-80.0); Platelet Count 229 K/mm3 (142-424); Red Blood Count 4.55 M/mm3 (4.60-6.20); Red Cell Distribution Width 13.3 % (11.5-17.5); White Blood Count 6.9 K/mm3 (4.8-10.8)
[2018-12-08 11:44] LABS: Anion Gap 11.9 mEq/L (5-15); Blood Urea Nitrogen 18 mg/dL (7-18); Calcium 9.4 mg/dL (8.5-10.1); Carbon Dioxide 28 mmol/L (21.0-32.0); Chloride 104 mmol/L (98-107); Creatinine,Serum 1.11 mg/dL (0.70-1.30); Estimated Glomerular Filt Rate 70 ml/min (>60); GFR (African American) 84 ML/MIN (>60); Glucose 102 mg/dL (74-106); Potassium 3.9 mmoL/L (3.5-5.1); Sodium 140 mmol/L (136-145)
== END ==
PROVIDERS: PCP Family Medicine; Visit Provider Urology
DX: I25.10 Atherosclerotic heart disease of native coronary artery without angina pectoris (principal); R06.00 Dyspnea, unspecified; N23 Unspecified renal colic; I10 Essential (primary) hypertension; E78.5 Hyperlipidemia, unspecified; Z95.5 Presence of coronary angioplasty implant and graft
CPT/HCPCS: 36415; 74018; 80048; 81001; 85025

== ENCOUNTER 2019-10-08 12:59 | Emergency (ER) | payer BC, SELFPAY ==
[2019-10-08 13:12] VITALS: BP 131/77; PULSE 68; RESP 19; TEMP 37.2; O2SAT 98; BMI 53.9
--- NOTE | 2019-10-08 13:29 | XR_ITS ---
PROCEDURE: XR LUMBAR SPINE 2-3V CLINICAL INDICATION: pain Right-sided back pain COMPARISON: CT ABDPELW/O CT ABD PELVIS W/O CONTRAST from 08/04/2014 FINDINGS: There is normal alignment. There is degenerative disc disease at L2-L3 and L4-5. No fracture or dislocation. Mild facet arthritic changes at L4-5 and L5-S1. Other findings:No lytic or blastic change. There is a segmented linear density overlying the left ilium which is of unknown etiology IMPRESSION: Degenerative changes as described above. Dictated by: Itz Leon MD 10/08/2019 14:08 Itz Leon MD in [place] 10/08/2019 14:08
--- NOTE | 2019-10-08 13:29 | HMH.EDUTC ---
[facility] [place] Clinical Impression: Muscle spasm Disposition: Home, Self-Care Condition on Discharge: Good Instructions: Methocarbamol, DI for Muscle Spasm Additional Instructions: *Ibuprofen ronnie 6 hours with meal as needed for pain/inflammation if your doctor has told you that you can take it if not then take Tylenol Not additional anti-inflammatory like motrin, aleve, advil with the above amount of ibuprofen. You can still take Tylenol every 4 hours as needed if you need something else for pain *Ice 20 minutes every 2 hours for the first 48 hours after the initial injury followed by moist heat every 20 minutes 3-4 times a day to affected area *Muscle relaxer as prescribed as needed for muscle spasms but remember, it WILL cause drowsiness You cannot take it and drive, operate machinery or care for small children. *Keep this area active, no movement leads to more stiffness, However take it easy and avoid heavy lifting pushing or pulling *Follow up with you family doctor if no improvement for further treatment Prescriptions: methocarbamoL [Methocarbamol 750mg Tab] 750 mg PO BID PRN 7 Days #14 tab PRN Reason: Muscle Spasm Transmission Status: Received by [id number] Referrals: Odette Aiken MD [Primary Care Provider] - As needed Time of Disposition: 14:13 Medical Decision Making - Karl Inquiry Pt receiving controlled substance: No Karl was queried for this patient: No Vital Signs: 10/08/19 13:12 10/08/19 14:18 Temperature 98.9 F 98.9 F Temperature Source Oral Pulse Rate 68 Pulse Rate [Right Brachial] 68 Respiratory Rate 19 19 Blood Pressure 131/77 Blood Pressure [Right Arm] 131/77 Blood Pressure Mean [Right Arm] 95 Blood Pressure Source [Right Arm] Automatic Cuff Blood Pressure Position [Right Arm] Sitting 02 Sat by Pulse Oximetry 98 Oxygen Delivery Method Room Air - Radiology Data #1 Image(s): L-Spine Image Reviewed: Yes I reviewed the patient's radiology image w/the ED provider Preliminary Findings: No Fracture [place]en [facility] [place] - General Stated complaint: back pain no AO Time Seen by Provider: 10/08/19 13:29 Mode of Arrival: Ambulatory Source of Information: Patient Limitations: No Limitations Description of Symptoms (Recalled from Triage Doc. by RN): PATIENT C/O SPASMS TO LEFT LOWER BACK X 1 WEEK HEENT Symptoms (Recalled from RN notes): No Resp Symptoms (Recalled from RN notes): No Skin Symptoms (Recalled from RN notes): No MS Symptoms (Recalled from RN notes): Yes Functional Status (Recalled from RN notes): WNL - History of Present Illness Provider Complaint: Patient states that he has been having some soreness on his left lower back area for over a week and certain ways he moves feels like muscle spasms States that he hasnt done anything that he is aware of to hurt it but unsure States that pain is worse with movement and trying to stand from sitting position Denies loss of control of bowel or bladder - Related Data Home Medications Medication Instructions Recorded Confirmed aspirin 81 mg tablet,delayed 81 mg PO DAILY 03/11/17 12/08/18 release coenzyme Q10 10 mg capsule 10 mg PO DAILY 03/11/17 12/08/18 fluticasone propionate 50 50 mcg INTRANASAL ONCE 03/11/17 12/08/18 mcg/actuation nasal spray,suspension lisinopril 20 mg tablet 20 mg PO DAILY 03/11/17 12/08/18 metformin 500 mg tablet 500 mg PO BID 03/11/17 12/08/18 omeprazole magnesium 20 mg 20 mg PO DAILY tab 03/11/17 12/08/18 tablet,delayed release rosuvastatin 20 mg tablet 20 mg PO HS 03/11/17 12/08/18 venlafaxine 75 mg capsule,extended 75 mg PO QHS 03/11/17 12/08/18 release 24 hr dextroamphetamine-amphetamine 20 20 mg PO BID tab 03/17/17 12/08/18 mg tablet Previous Rx's Medication Instructions Recorded bisoprolol fumarate 10 mg tablet 20 mg PO DAILY #60 tab 12/27/18 furosemide 40 mg tablet 20 mg PO DAILY PRN #30 tab 05/21/19 ranolazine 1,000 mg 1,000 mg PO BID #60 tab
[2019-10-08 14:18] VITALS: BP 131/77; PULSE 68; RESP 19; TEMP 37.2; O2SAT 98
== END 2019-10-08 14:22 | disposition home or self-care (01) ==
PROVIDERS: Emergency Provider Nurse Practitioner; PCP Family Medicine
DX: M62.838 Other muscle spasm (principal); M54.5 Low back pain; I10 Essential (primary) hypertension; E78.5 Hyperlipidemia, unspecified; E11.9 Type 2 diabetes mellitus without complications; F41.8 Other specified anxiety disorders; K21.9 Gastro-esophageal reflux disease without esophagitis; Z95.5 Presence of coronary angioplasty implant and graft; Z79.899 Other long term (current) drug therapy
CPT/HCPCS: 72100; 99201

== ENCOUNTER 2019-10-17 13:19 | Emergency (ER) | payer BC, SELFPAY ==
[2019-10-17 13:25] VITALS: PULSE 71; RESP 19; TEMP 36.6; O2SAT 100; BMI 42.3
--- NOTE | 2019-10-17 13:43 | HMH.EDUTC ---
[facility] [place] Clinical Impression: Otitis media Qualifiers: Otitis media type: unspecified Laterality: right Qualified Code(s): H66.91 - Otitis media, unspecified, right ear Disposition: Home, Self-Care Condition on Discharge: Good Instructions: Middle Ear Infections (Alternative Therapy), Middle Ear Infection, Amoxicillin Additional Instructions: *Monitor Temp, Over the counter Motrin or Tylenol as directed/as needed Tylenol every 4 hours and Motrin every 6 hours (as long as your family doctor has told you that you can take it) for fever or pain. and straight to ER if unable to lower temp less than 101.0 after medication given Humidifier/Vaporizer *Flonase 2 sprays in each nostril daily but be aware that it may take 2-3 days before you notice improvement Take medication as prescribed Follow up IMMEDIATELY for new or worsening symptoms or no Noticeable improvement over the next 48-72 hours. 911 for difficulty breathing or swallowing Prescriptions: Amoxicillin [Amoxicillin 500mg Cap] 500 mg PO TID #30 cap Transmission Status: Pending to [id number] Referrals: Odette Aiken MD [Primary Care Provider] - As needed Time of Disposition: 13:48 Medical Decision Making - Karl Inquiry Pt receiving controlled substance: No Karl was queried for this patient: No Vital Signs: 10/17/19 13:25 Temperature 97.9 F Temperature Source Oral Pulse Rate [Radial] 71 Respiratory Rate 19 02 Sat by Pulse Oximetry 100 Oxygen Delivery Method Room Air [facility] [place] - General Stated complaint: possible ear infection Time Seen by Provider: 10/17/19 13:43 Mode of Arrival: Ambulatory Source of Information: Patient Limitations: No Limitations Description of Symptoms (Recalled from Triage Doc. by RN): Possible ear infection HEENT Symptoms (Recalled from RN notes): Yes Resp Symptoms (Recalled from RN notes): No Skin Symptoms (Recalled from RN notes): No MS Symptoms (Recalled from RN notes): No Functional Status (Recalled from RN notes): wnl - History of Present Illness Provider Complaint: Patient state that he has been having pain in his right ear for over a week that has continued to get worse States that he use to get chronic ear infections States that today it was hurting worse so he come in to get it checked - Related Data Home Medications Medication Instructions Recorded Confirmed aspirin 81 mg tablet,delayed 81 mg PO DAILY 03/11/17 12/08/18 release coenzyme Q10 10 mg capsule 10 mg PO DAILY 03/11/17 12/08/18 fluticasone propionate 50 50 mcg INTRANASAL ONCE 03/11/17 12/08/18 mcg/actuation nasal spray,suspension lisinopril 20 mg tablet 20 mg PO DAILY 03/11/17 12/08/18 metformin 500 mg tablet 500 mg PO BID 03/11/17 12/08/18 omeprazole magnesium 20 mg 20 mg PO DAILY tab 03/11/17 12/08/18 tablet,delayed release rosuvastatin 20 mg tablet 20 mg PO HS 03/11/17 12/08/18 venlafaxine 75 mg capsule,extended 75 mg PO QHS 03/11/17 12/08/18 release 24 hr dextroamphetamine-amphetamine 20 20 mg PO BID tab 03/17/17 12/08/18 mg tablet Previous Rx's Medication Instructions Recorded bisoprolol fumarate 10 mg tablet 20 mg PO DAILY #60 tab 12/27/18 furosemide 40 mg tablet 20 mg PO DAILY PRN #30 tab 05/21/19 ranolazine 1,000 mg 1,000 mg PO BID #60 tab 08/21/19 tablet,extended release,12 hr prasugrel 10 mg tablet 10 mg PO DAILY #90 tab 10/02/19 methocarbamoL [Methocarbamol 750mg 750 mg PO BID PRN 7 Days #14 tab 10/08/19 Tab] Amoxicillin [Amoxicillin 500mg 500 mg PO TID #30 cap 10/17/19 Cap] Allergies Allergy/AdvReac Type Severity Reaction Status Date / Time latex Allergy Intermediate I-RASH Verified 12/08/18 09:55 spironolactone AdvReac Mild weak,diaphoresis, Verified 12/08/18 10:01 [From Aldactone] felt really bad while taking. - Worker's Comp Is this a Worker's Comp case?: No [facility] History - Hepatitis A Screen Drug use history?: No High risk sexu
[2019-10-17 13:54] VITALS: BP 128/78; PULSE 71; RESP 19; TEMP 36.6; O2SAT 100
== END 2019-10-17 13:55 | disposition home or self-care (01) ==
LOC: ER 13:22 → UTC 13:23
PROVIDERS: Emergency Provider Nurse Practitioner; PCP Family Medicine
DX: H66.91 Otitis media, unspecified, right ear (principal); F41.8 Other specified anxiety disorders; I25.10 Atherosclerotic heart disease of native coronary artery without angina pectoris; E11.9 Type 2 diabetes mellitus without complications; K21.9 Gastro-esophageal reflux disease without esophagitis; E78.5 Hyperlipidemia, unspecified; I10 Essential (primary) hypertension; Z79.899 Other long term (current) drug therapy
CPT/HCPCS: 99201

== ENCOUNTER → 2019-10-22 15:07 | Outpatient (CLI) | payer BC, SELFPAY ==
--- NOTE | 2019-10-22 15:13 | CA_ITS ---
APPROVED REPORT Bilateral Lower Extremity Venous Study for DVT. Vp Construction: MAGDY Indications Lower Extremity Pain: Right Vein Imaging EIV (R): compressive, spontaneous, phasic, augmentation CFV (R): compressive, spontaneous, phasic, augmentation SFJ (R): compressive, spontaneous, phasic, augmentation FEM (R): compressive, spontaneous, phasic, augmentation POP (R): compressive, spontaneous, phasic, augmentation DFV (R): Compressible PTV (R): Compressible GSV (R): Compressible Peroneals (R):Compressible GAS (R): Compressible Findings No evidence of DVT or superficial thrombophlebitis in the veins scanned of the right lower extremity. Conclusion No evidence of DVT or superficial thrombophlebitis in the veins scanned of the right lower extremity. Electronically signed by : Itz Leon MD 10/22/2019 17:00:14
--- NOTE | 2019-10-22 15:38 | XR_ITS ---
PROCEDURE: XR KNEE RT 3V CLINICAL INDICATION: RIGHT MEDIAL KNEE PAIN COMPARISON: No exams were available for comparison FINDINGS: No fracture or dislocation. No lytic or blastic change. There is normal mineralization. There are minimal osteoarthritic changes of the medial compartment and there is minimal spurring of the tibial spines. There are 2 calcific densities along the posterior aspect of the knee joint 1 of which may represent a loose body measuring approximately 6 mm. Other findings:None. IMPRESSION: Minimal osteoarthritic change with possible loose body of the posterior knee joint Dictated by: Itz Leon MD 10/22/2019 17:23 Itz Leon MD in [place] 10/22/2019 17:23
== END ==
LOC: RT 15:10
PROVIDERS: PCP Family Medicine; Visit Provider Family Medicine
DX: M79.661 Pain in right lower leg (principal)
CPT/HCPCS: 73562; 93971

== ENCOUNTER 2020-05-11 19:08 | Emergency (ER) | payer BC, SELFPAY ==
[2020-05-11 19:21] VITALS: BP 134/80; PULSE 86; RESP 20; TEMP 36.9; O2SAT 100; BMI 42.3
--- NOTE | 2020-05-11 19:22 | XR_ITS ---
PROCEDURE: XR KNEE RT 3V CLINICAL INDICATION: FELT POP IN KNEE THIS MORNING COMPARISON: CR XR KNEE RT 3V from 10/22/2019 FINDINGS: No fracture or dislocation. No lytic or blastic change. There is normal mineralization. There are mild osteoarthritic changes involving all 3 compartments. No acute fracture or dislocation is evident. 5 mm intra-articular loose body once again noted along the posterior aspect of the lateral compartment Other findings:None. IMPRESSION: No acute finding. Osteoarthritis with loose body Dictated by: Itz Leon MD 05/12/2020 05:01 Itz Leon MD in [place] 05/12/2020 05:01
--- NOTE | 2020-05-11 19:29 | HMH.EDUTC ---
[facility] [place] Disposition Clinical Impression: Knee sprain Qualifiers: Encounter type: initial encounter Involved ligament of knee: other ligament Laterality: right Qualified Code(s): S83.8X1A - Sprain of other specified parts of right knee, initial encounter Disposition: Home, Self-Care Condition on Discharge: Good Instructions: How to Use Crutches, How To Perform RICE (Rest, Ice, Compress, Elevate), How to Use a Knee Immobilizer Additional Instructions: *RICE, Rest the extremity, Ice 15-20 minutes 3-4 times daily, Compress- wear the raphael wrap as discussed as much as possible to help reduce swelling and pain, Elevate the extremity when at rest *Knee Immobilizer is for support and help control swelling, use it except in the shower. Be sure that is not to tight but not to loose either *Elevate when resting this will help with swelling and pain *Ibuprofen 600-800mg every 6-8 hours as needed for pain an inflammation if your doctor has told you that you can take it. If need something more can take Tylenol in between doses of Ibuprofen to help Immediately follow up with your family doctor for new or worsening of symptoms, or no noticeable improvement over the next 3-[address] Dailey's office in the morning and make appointment Return if needed Straight to ER if any life threatening symptoms Referrals: Odette Aiken MD [Primary Care Provider] - Rene Dailey MD [Staff Physician] - As needed (Call office in the morning for appointment) Forms: Work/School Release Time of Disposition: 19:49 Medical Decision Making - Karl Inquiry Pt receiving controlled substance: No Karl was queried for this patient: No Vital Signs: 05/11/20 19:21 05/11/20 20:05 Temperature 98.4 F 98.4 F Temperature Source Oral Oral Pulse Rate 86 Pulse Rate [Right Brachial] 86 Respiratory Rate 20 20 Blood Pressure 134/80 Blood Pressure [Right Arm] 134/80 Blood Pressure Mean [Right Arm] 98 Blood Pressure Source Automatic Cuff Blood Pressure Source [Right Arm] Automatic Cuff Blood Pressure Position Sitting Blood Pressure Position [Right Arm] Sitting 02 Sat by Pulse Oximetry 100 Oxygen Delivery Method Room Air Room Air Orders (Tests/Meds): ORDERS Category Date Time Status XR knee RT 3V Stat Exams 05/11/20 19:22 Taken - Radiology Data #1 Image(s): Knee (right) Image Reviewed: Yes I reviewed the patient's radiology image No acute, as seen before in previous xray possible loose body of posterior knee joint - Physician Consults Physician Consulted: Asim Time: 19:44 Reason -: Orthopedic Eval/Care Comment/Response: Spoke with Dr Dailey and he viewed xrays and agreed with xray Advised to place patient in knee imobilizer, crutches, RICE Nsaids and call office in the morning for appointment Medical Decision Narrative: Patient reports that he has ibuprofen at home and has taken it before without complications or reactions [facility] [place] HPI - General Stated complaint: R knee pain Time Seen by Provider: 05/11/20 19:29 Mode of Arrival: Wheelchair Source of Information: Patient Description of Symptoms (Recalled from Triage Doc. by RN): Pain in right knee HEENT Symptoms (Recalled from RN notes): No Resp Symptoms (Recalled from RN notes): No Skin Symptoms (Recalled from RN notes): No MS Symptoms (Recalled from RN notes): Yes Functional Status (Recalled from RN notes): N/A - History of Present Illness Provider Complaint: Patient state that this morning he was having pain in his right knee and felt like it was going to give out on him State that his right knee gave out several times on him today States that last time he felt like a pop like something snapped on his right knee and now hurts when he tries to put weight on his leg State that he has had issues with this knee before and this morning it started hurting again - Related Data Home Medications Medication Instructions Recorded Confirmed aspirin 81 mg tablet,delayed 81 mg
[2020-05-11 20:05] VITALS: BP 134/80; PULSE 86; RESP 20; TEMP 36.9; O2SAT 100
== END 2020-05-11 20:07 | disposition home or self-care (01) ==
PROVIDERS: Emergency Provider Nurse Practitioner; PCP Family Medicine
DX: S83.8X1A Sprain of other specified parts of right knee, initial encounter (principal); F41.8 Other specified anxiety disorders; E11.9 Type 2 diabetes mellitus without complications; K21.9 Gastro-esophageal reflux disease without esophagitis; E78.5 Hyperlipidemia, unspecified; I10 Essential (primary) hypertension; Z91.040 Latex allergy status; Z79.899 Other long term (current) drug therapy
CPT/HCPCS: 73562; 99202; G0463

== ENCOUNTER → 2020-05-22 14:22 | Outpatient (CLI) | payer BC, SELFPAY ==
--- NOTE | 2020-05-22 14:23 | MR_ITS ---
PROCEDURE: MR KNEE RT WO CON CLINICAL INDICATION: RT knee pain Medial sided knee pain [id number]. No known injury. Knee locked up x4days ago. Knee instability. Pain when bending and extending knee. Pain when turning kneed side to side. COMPARISON: CR XR KNEE RT 3V from 05/11/2020 TECHNIQUE: Routine multiplanar multi echo sequences are performed without gadolinium enhancement. FINDINGS: Unremarkable cruciate ligaments. The lateral ligament complex appears intact. There is some edema of the superior aspect of the medial collateral ligament suggesting sprain or partial tear. There is mild edema about the soft tissues of the knee. There is a complex tear involving the posterior horn of the medial meniscus with diffuse increased signal with irregular linear components. The lateral meniscus has unremarkable appearance. There is some mild thinning of the patellar cartilage. There is a medium size knee joint effusion. There is slight increased T1 and T2 signal involving the inferior aspect of the patellar tendon suggesting tendinopathy/tendinosis. There are mild osteoarthritic changes involving all 3 compartments greater at the medial compartment. There is medial extrusion of the body of the medial meniscus. There is a small focus of increased T2 signal involving the posterior articular surface of the medial femoral condyle suggesting a small area of edema. There are 2 areas there well-circumscribed which appear to represent extracapsular ossicles along the proximal tibia measuring approximately 8 mm. IMPRESSION: 1. Complex nondisplaced tear involves the posterior horn of the medial meniscus. 2. Mild edematous changes of the superior aspect of the medial collateral ligament suggesting sprain or partial tear. 3. Mild osteoarthritic changes with knee joint effusion Dictated by: Itz Leon MD 05/25/2020 12:06 Itz Leon MD in [place] 05/25/2020 12:06
== END ==
LOC: RAD 14:23
PROVIDERS: PCP Family Medicine; Visit Provider Orthopaedic Surgery
DX: M17.11 Unilateral primary osteoarthritis, right knee (principal); G89.29 Other chronic pain; M23.41 Loose body in knee, right knee; M25.561 Pain in right knee; S89.91XA Unspecified injury of right lower leg, initial encounter
CPT/HCPCS: 73721

== ENCOUNTER → 2020-07-24 10:40 | Outpatient (CLI) | payer BC, SELFPAY ==
[2020-07-24 11:24] LABS: Basophils # 0.1 K/mm3 (0-0.2); Basophils % 0.6 % (0.1-2.0); Eosinophils # 0.1 K/mm3 (0.0-0.4); Eosinophils % 1.7 % (0.1-12.0); Hematocrit 45.1 % (42.0-52.0); Hemoglobin 14.9 g/dL (14.1-18.0); Lymphocytes # 2.5 K/mm3 (0.7-4.5); Mean Corpuscular HGB Conc 32.9 g/dL (31.8-35.4); Mean Corpuscular Hemoglobin 31.1 pg (27.0-31.2); Mean Corpuscular Volume 94.5 fl (80-94); Mean Platelet Volume 7.7 fl (7.4-10.4); Monocytes # 0.4 K/mm3 (0.1-1.0); Monocytes % 5.6 % (1.7-9.3); Neutrophils # 4.1 K/mm3 (1.8-7.8); Neutrophils % 57.1 % (37.0-80.0); Platelet Count 209 K/mm3 (142-424); Red Blood Count 4.77 M/mm3 (4.60-6.20); Red Cell Distribution Width 13.3 % (11.5-17.5); White Blood Count 7.2 K/mm3 (4.8-10.8)
[2020-07-24 13:18] LABS: Folate 6.15 ng/mL
[2020-07-25 07:09] LABS: Ceruloplasmin 29.3 mg/dL (16.0-31.0)
== END ==
PROVIDERS: Visit Provider Nurse Practitioner Family
DX: R25.1 Tremor, unspecified (principal)
CPT/HCPCS: 36415; 82390; 82746; 85025

== ENCOUNTER → 2020-07-30 13:55 | Outpatient (CLI) | payer BC, SELFPAY ==
--- NOTE | 2020-07-30 13:56 | MR_ITS ---
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 No prior. TECHNIQUE: Imaging protocol: MR of the head without contrast. COMPARISON: No relevant prior studies available. FINDINGS: Brain: There is no evidence of an acute intracranial hemorrhage, midline shift, mass effect, mass lesion or findings of acute infarction. Punctate nonspecific white matter signal changes are seen likely in the bases of microangiopathic or post ischemic disease. Cerebral ventricles: Normal. No ventriculomegaly. Bones/joints: Unremarkable. Paranasal sinuses: Normal as visualized. No acute sinusitis. Mastoid air cells: Fluid is seen within the mastoid air cells bilaterally having the appearance of acute mastoiditis. This is greater on the right than the left. Orbital cavity: Unremarkable. Soft tissues: Unremarkable. IMPRESSION: 1. Fluid is seen within the mastoid air cells bilaterally having the appearance of acute mastoiditis. This is greater on the right than the left. 2. There is no evidence of an acute intracranial hemorrhage, midline shift, mass effect, mass lesion or findings of acute infarction. Punctate nonspecific white matter signal changes are seen likely in the bases of microangiopathic or post ischemic disease.
== END ==
LOC: RAD 13:56
PROVIDERS: PCP Family Medicine; Visit Provider Nurse Practitioner Family
DX: R25.1 Tremor, unspecified (principal)
CPT/HCPCS: 70551

== ENCOUNTER 2020-09-01 09:03 | Emergency (ER) | payer BC, SELFPAY ==
[2020-09-01 09:03] VITALS: BP 131/76; PULSE 65; RESP 20; TEMP 36.9; O2SAT 99; BMI 43.0
--- NOTE | 2020-09-01 10:03 | HMH.EDUTC ---
[facility] [place] Disposition Clinical Impression: Strain of muscle, fascia and tendon of lower back, initial encounter Low back pain Qualifiers: Chronicity: acute Back pain laterality: right Sciatica presence: without sciatica Qualified Code(s): M54.5 - Low back pain Disposition: Home, Self-Care Condition on Discharge: Good Instructions: Low Back Pain, DI for Low Back Pain Additional Instructions: Go home and rest. It would be best if you rested tomorrow too. No heavy lifting. No twisting. Take the oral medications as directed. The muscle relaxer (cyclobenziprine) will make you drowsy, so don't drive or operate heavy machinery after taking it. Don't start the oral steroids (medrol dose pack) until tomorrow, since you had the shots in here today. Follow up with your regular doctor. GO TO THE ER FOR ANY WORSENING SYMPTOMS OR CONCERN, ESPECIALLY BOWEL OR BLADDER ISSUES, SADDLE AREA NUMBNESS, FEVER, ETC Prescriptions: Cyclobenzaprine HCl [Cyclobenzaprine 10mg Tab] 10 mg PO BIDP PRN #20 tab PRN Reason: Muscle Spasm Transmission Status: Received by [id number] methylPREDNISolone [Medrol] 4 mg PO DIRECTED 6 Days #21 tab.ds.[email or web address] Transmission Status: Received by [id number] Referrals: Odette Aiken MD [Primary Care Provider] - Forms: Work/School Release Time of Disposition: 10:27 Medical Decision Making - Medical Records Medical records reviewed: No: I reviewed the patient's medical records. - Karl Inquiry Pt receiving controlled substance: No Vital Signs: 09/01/20 09:03 09/01/20 10:25 Temperature 98.4 F 98.4 F Temperature Source Oral Oral Pulse Rate 65 Pulse Rate [Left Radial] 65 Respiratory Rate 20 20 Blood Pressure 131/76 Blood Pressure [Right Arm] 131/76 Blood Pressure Mean [Right Arm] 94 Blood Pressure Source Automatic Cuff Blood Pressure Source [Right Arm] Automatic Cuff Blood Pressure Position Sitting Blood Pressure Position [Right Arm] Sitting 02 Sat by Pulse Oximetry 99 Oxygen Delivery Method Room Air Room Air - Lab Data Lab results reviewed: Yes: I reviewed the patient's lab results. Lab Results 09/01/20 10:00: Urine Color Yellow, Urine Appearance Clear, Urine pH 5.0, Ur Specific [place] 1.020, Urine Protein Negative, Urine Glucose (UA) Negative, Urine Ketones Negative, Urine Blood Negative, Urine Nitrate Negative, Urine Bilirubin Negative, Urine Urobilinogen 0.2, Ur Leukocyte Esterase Negative Orders (Tests/Meds): ED MEDICATIONS Discontinued Medications Generic Name Dose Route Start Last Admin Trade Name Danitza PRN Reason Stop Dose Admin Ketorolac Tromethamine 60 mg 09/01/20 10:03 09/01/20 10:12 Ketorolac 60mg/2ml Vial IM 09/01/20 10:04 60 mg ONCE ONE Administration Methylprednisolone Sodium Succinate 125 mg 09/01/20 10:03 09/01/20 10:12 Methylprednisolone Sod Succ 125mg Vial IM 09/01/20 10:04 125 mg ONCE ONE Administration [facility] [place] HPI - General Stated complaint: muscle spasms in back Time Seen by Provider: 09/01/20 10:03 Mode of Arrival: Ambulatory Source of Information: Patient Limitations: No Limitations Description of Symptoms (Recalled from Triage Doc. by RN): c/o right side/back pain, states that he has a spasm like feeling in this area. Known issues for one year but the last two weeks this pain has increased HEENT Symptoms (Recalled from RN notes): No Resp Symptoms (Recalled from RN notes): No Skin Symptoms (Recalled from RN notes): No MS Symptoms (Recalled from RN notes): Yes Functional Status (Recalled from RN notes): wnl - History of Present Illness Provider Complaint: She complains of having right sideed back pain. She has had this pain on and off for the past 1 year approx. She was supposed to work [employer], but her pain has worsened today so she came in to be checked. She states that she has what feels like muscle spasms in her lower back also. She denies any urinary complaints. - Related
[2020-09-01 10:25] VITALS: BP 131/76; PULSE 65; RESP 20; TEMP 36.9; O2SAT 99
[2020-09-01 17:14] LABS: Color,Urine Yellow (Yellow)
[2020-09-01 17:15] LABS: Apearance,Urine Clear (Clear); Bilirubin,Urine Negative (Negative); Blood, Urine Negative (Negative); Glucose,Urine (UA) Negative (Negative); Ketones,Urine Negative (Negative); Protein,Urine Negative (Negative); UTC Leukocyte Esterase,Urine Negative (Negative); UTC Nitrate,Urine Negative (Negative); Urobilinogen,Urine 0.2 EU/dl (0.2)
== END 2020-09-01 10:31 | disposition home or self-care (01) ==
PROVIDERS: Emergency Provider Nurse Practitioner Family; PCP Family Medicine
DX: S39.012A Strain of muscle, fascia and tendon of lower back, initial encounter (principal); F41.8 Other specified anxiety disorders; I25.10 Atherosclerotic heart disease of native coronary artery without angina pectoris; E11.9 Type 2 diabetes mellitus without complications; K21.9 Gastro-esophageal reflux disease without esophagitis; Z79.899 Other long term (current) drug therapy
CPT/HCPCS: 81003; 96372; 99202; G0463

== ENCOUNTER → 2021-01-15 09:15 | Outpatient (CLI) | payer BC, SELFPAY ==
[2021-01-15 10:06] LABS: Alanine Aminotransferase 40 U/L (12-78); Albumin Level 4.3 g/dl (3.5-5.0); Albumin/Globulin Ratio 1.9 (1.1-1.8); Alkaline Phosphatase 71 U/L (38-126); Anion Gap 11.4 mEq/L (5-15); Aspartate Amino Transferase 44 U/L (17-59); Bilirubin,Total 0.6 mg/dl (0.2-1.3); Blood Urea Nitrogen 20 mg/dl (9-20); Calcium 9.7 mg/dl (8.4-10.2); Carbon Dioxide 29 mmol/L (22.0-30.0); Chloride 101 mmol/L (98-107); Estimated Glomerular Filt Rate 88 ml/min (>60); GFR (African American) 106 ML/MIN (>60); Globulin 2.3 g/dL (1.3-3.2); Glucose 170 mg/dl (74-100); Magnesium 1.6 mg/dl (1.6-2.3); Potassium 4.4 mmoL/L (3.5-5.1); Sodium 137 mmol/L (136-145); Total Protein,Serum 6.6 g/dl (6.3-8.2)
== END ==
PROVIDERS: Visit Provider Nurse Practitioner Family
DX: M62.838 Other muscle spasm (principal)
CPT/HCPCS: 36415; 80053; 83735

== ENCOUNTER → 2021-02-27 16:51 | Outpatient (CLI) | payer BC, SELFPAY | PROVIDERS: Visit Provider Nurse Practitioner | DX: Z20.822 Contact with and (suspected) exposure to COVID-19 (principal) | CPT/HCPCS: C9803; U0003; U0005 ==

== ENCOUNTER → 2021-04-10 13:42 | Outpatient (CLI) | payer BC, SELFPAY ==
--- NOTE | 2021-04-10 13:43 | CA_ITS ---
APPROVED REPORT EXAM: Comprehensive 2D, Doppler, and color-flow Echocardiogram Registered Nurse First Assistant: Yesi Domingo CRT Ht: 5 ft 10 in Wt: 305lbs BSA: 2.50 BP: 132/75 mmHg Indications: Shortness of Breath, Diabetes, CAD, Hyperlipidemia, Cardiomyopathy, Hypertension/HDD, DD, LETY, GERD, OBESITY 2D Dimensions LVOT 2.09 cm (M/F) 1.5-2.5 LA Volume 67.70 mL LA Volume Index 27.10 mL/m2 (M/F) 16-34 M-Mode Dimensions RVDd 3.35 cm (0.9-2.6) LA Diam 4.41 cm (1.9-4.0) LVDd 5.72 cm (3.5-5.7) Ao Diam 3.99 cm (2.0-3.7) LVDs 4.42 cm (3.5-5.7) IVSd 1.61 cm (0.6-1.1) PWd 0.94 cm (0.6-1.1) EF (Teich) 45.10% FS 22.70% EDV (Teich) 161.30 mL TAPSE 2.35 (<1.7) ESV (Teich) 88.60 mL LV Diastology E Decel Time 377.00 (160-240 msec) E/A Ratio 0.89 MED E' 4.50 (< 7 cm/sec) MED A' 8.20 cm/s E'/MED E' Ratio 16.78 (>14) LAT E' 8.50 (<10 cm/sec) LAT A' 9.50 cm/s E/LAT E' Ratio 8.88 (>14) Aortic Valve LVOT Max 131.00 (70-110 cm/s) LVOT VTI 23.77 cm AoV Peak Ferny. 358.00 (50-130 cm/s) AO Peak GR. 56.60 mmHg AO Mean GR. 28.40 (<5 mmHg) AO VTI 69.86 (18-25 cm) RODOLFO (VTI) 1.17 (2.5-4.5 cm2) Mitral Valve MV A Velocity 85.00 (40-130 cm/s) E/A Ratio 0.89 MV Decel. Time 377.00 (160-240 ms) Pulmonary Valve PV Peak Velocity 98.00 (50-150 cm/s) Tricuspid Valve TR P. Velocity 316.00 cm/s RAP Estimate 10.00 mmHg RVSP 49.80 mmHg Left Ventricle Left atrium is mildly enlarged, left ventricle is normal size, mild asymmetrical septal hypertrophy seen, visually estimated ejection fraction 55 to 60%, there is systolic anterior motion of the mitral valve leaflet in the left ventricular outflow tract, the peak gradient in the left ventricular outflow tract is 36 mmHg at rest suggestive of dynamic obstruction. Diastolic parameters are inconclusive in the study. Right Ventricle Right atrium and right ventricle mildly enlarged with normal contractility. Aortic Valve Aortic valve is thickened and calcified morphologically there is no aortic stenosis or aortic insufficiency. Mitral Valve Mitral valve leaflets grossly normal, there is systolic anterior motion of the mitral valve leaflets seen as described above, there is mild mitral regurgitation. Tricuspid Valve Tricuspid grossly normal, there is trace tricuspid regurgitation, tricuspid regurgitation jet velocity is inadequate for calculation of the right ventricular systolic pressure. Pulmonic Valve Pulmonic valve is poorly visualized. Great Vessels Aortic root is normal size. Inferior vena cava is poorly visualized. Pericardium No significant pericardial effusion. Conclusion 1. Mildly enlarged left atrium, normal left ventricular size, mild asymmetrical septal hypertrophy, visually estimated ejection fraction 55 to 60% with no regional wall motion abnormality, there is systolic anterior motion of the mitral valve leaflet, the peak gradient in the left ventricular outflow track is 36 mmHg at rest suggestive of dynamic obstruction. Diastolic parameters are inconclusive in the study. 2. Mild mitral and tricuspid regurgitation. 3. No significant pericardial effusion. 4. Inferior vena cava is poorly visualized. Electronically signed by : Ebenezer Nguyen MD 04/10/2021 15:12:37
== END ==
LOC: RT 13:43
PROVIDERS: PCP Family Medicine; Visit Provider Nurse Practitioner Family
DX: R06.02 Shortness of breath (principal); R01.1 Cardiac murmur, unspecified; I25.10 Atherosclerotic heart disease of native coronary artery without angina pectoris; I10 Essential (primary) hypertension; E78.2 Mixed hyperlipidemia; G47.33 Obstructive sleep apnea (adult) (pediatric); Z95.5 Presence of coronary angioplasty implant and graft
CPT/HCPCS: 93306

== ENCOUNTER 2021-10-05 10:08 | Emergency (ER) | payer BC, SELFPAY ==
[2021-10-05 11:45] VITALS: BP 127/84; PULSE 61; RESP 20; TEMP 36.4; O2SAT 98; BMI 42.3
--- NOTE | 2021-10-05 12:17 | EXP.UTC ---
Discharge Plan Disposition Patient Disposition: Home, Self-Care Condition: Good Prescriptions Prescriptions: New cefdinir 300 mg capsule 300 mg PO Q12H 10 Days Qty: 20 0RF benzonatate 100 mg capsule 100 mg PO TID PRN (Reason: cough) Qty: 15 0RF No Action aspirin [Adult Low Dose Aspirin] 81 mg tablet,delayed release (DR/EC) 81 mg PO DAILY venlafaxine [Effexor XR] 75 mg capsule,extended release 24hr 75 mg PO QHS lisinopril 20 mg tablet 20 mg PO DAILY metformin 500 mg tablet 500 mg PO BID dextroamphetamine-amphetamine [Adderall] 20 mg tablet 20 mg PO DAILY omeprazole 20 mg capsule,delayed release(DR/EC) 20 mg PO DAILY Jardiance 10 mg tablet 10 mg PO primidone 50 mg tablet See Rx Instructions PO .COMPLEX 90 Days Qty: 450 1RF Rx Instructions: Take 100 mg (2 tablets) every morning and 150 mg (3 tablets) nightly alternated with 100mg PO BID bisoprolol fumarate 10 mg tablet 10 mg PO BID Qty: 180 1RF furosemide 40 mg tablet See Rx Instructions .ROUTE .COMPLEX Qty: 45 1RF Dose Instruction: TAKE 1/2 (ONE-HALF) TABLET BY MOUTH ONCE DAILY FOR EDEMA Rx Instructions: TAKE 1/2 (ONE-HALF) TABLET BY MOUTH ONCE DAILY FOR EDEMA ranolazine 1,000 mg tablet extended release 12 hr See Rx Instructions .ROUTE .COMPLEX Qty: 60 5RF Dose Instruction: TAKE 1 TABLET BY MOUTH TWICE DAILY FOR ANGINA Rx Instructions: TAKE 1 TABLET BY MOUTH TWICE DAILY FOR ANGINA rosuvastatin 20 MG tablet 20 mg PO DAILY Referrals Follow up/Referrals: Odette Aiken MD [Primary Care Provider] - See instructions Activity Restrictions/Add. Instructions Additional Instructions/Restrictions: *Monitor Temp, Over the counter Motrin or Tylenol as directed/as needed Tylenol every 4 hours and Motrin every 6 hours (as long as your family doctor has told you that you can take it) for fever or pain. and straight to ER if unable to lower temp less than 101.0 after medication given *Warm salt water gargles may help to soothe the throat *Throat Lozenges? *Warm fluids like tea with honey may help to soothe the throat? *Sleep elevated *Humidifier/Vaporizer Take medication as prescribed Follow up IMMEDIATELY for new or worsening symptoms or no Noticeable improvement over the next 48-72 hours. 911 for difficulty breathing or swallowing Clinical Impressions Clinical Impression: Upper respiratory infection Instructions Patient Instructions: Acute Bronchitis, Cefdinir Discharge ED Provider: Elise Peterson [facility] [place] HPI General Stated complaint: Congestion, cough Mode of Arrival: Ambulatory Source of Information: Patient Limitations: No Limitations Time Seen by Provider: 10/05/21 12:10 Description of Symptoms (Recalled from Triage Doc. by RN): PATIENT C/O EARS STOPPED UP, PRODUCTIVE COUGH WITH YELLOW SPUTUM, AND CHEST BURNING WITH COUGH SINCE TUESDAY HEENT Symptoms (Recalled from RN notes): Yes Resp Symptoms (Recalled from RN notes): Yes Skin Symptoms (Recalled from RN notes): No MS Symptoms (Recalled from RN notes): No Functional Status (Recalled from RN notes): WNL History of Present Illness Provider Complaint: Patient states that he started last week feeling like his ears are stopped up, sinus congestion scratchy throat and cough States that at times he is able to cough up some yellowish colored mucous but not every time States that he feels like he is having drianage in the back of his throat causing irritation so he came in worried it may try to set up bronchitis Related Data Home Medications Medication Instructions Recorded Confirmed aspirin 81 mg tablet,delayed 81 mg PO DAILY HEART HEALTH 03/11/17 07/13/21 release (Adult Low Dose Aspirin) lisinopril 20 mg tablet 20 mg PO DAILY BLOOD PRESSURE 03/11/17 07/13/21 metformin 500 mg tablet 500 mg PO BID Diabetes 03/11/17 07/13/21 venlafaxine 75 mg capsule,extended 75 m
[2021-10-05 12:30] VITALS: BP 127/84; PULSE 61; RESP 20; TEMP 36.4; O2SAT 98
== END 2021-10-05 12:37 | disposition home or self-care (01) ==
PROVIDERS: Emergency Provider Nurse Practitioner; PCP Family Medicine
DX: J06.9 Acute upper respiratory infection, unspecified (principal)
CPT/HCPCS: 99212; G0463

== ENCOUNTER 2023-05-18 13:41 | Outpatient (CLI) | payer BC, SELFPAY ==
--- NOTE | 2023-05-18 13:43 | CA_ITS ---
APPROVED REPORT EXAM: Comprehensive 2D, Doppler, and color-flow Echocardiogram Logging Tractor Operator Swamp: Nelida Nunes, LOUANN, RVS Ht: 5 ft 10 in Wt: 296lbs BSA: 2.47 BP: 135/75 mmHg Indications: Hypertrophic CM, CAD, DM, HTN<,MILLER 2D Dimensions LA Volume 99.60 mL LA Volume Index 40.32 mL/m2 (M/F) 16-34 M-Mode Dimensions RVDd 3.05 cm (0.9-2.6) LA Diam 4.62 cm (1.9-4.0) LVDd 5.42 cm (3.5-5.7) LVDs 3.77 cm (3.5-5.7) IVSd 0.88 cm (0.6-1.1) PWd 1.00 cm (0.6-1.1) EF (Teich) 57.30% EPSs 0.44 cm FS 30.40% EDV (Teich) 142.50 mL TAPSE 2.38 (<1.7) ESV (Teich) 60.80 mL LV Diastology E Decel Time 240 (160-240 msec) E/A Ratio 1.12 MED A' 8.10 cm/s LAT A' 9.40 cm/s Aortic Valve RODOLFO Index 1.16 cm2/m2 AoV Peak Ferny. 255.0 (50-130 cm/s) AO Peak GR. 26.10 mmHg AO Mean GR. 16.00 (<5 mmHg) AO VTI 54.7 (18-25 cm) RODOLFO (VTI) 2.94 (2.5-4.5 cm2) Mitral Valve MV A Velocity 82.0 (40-130 cm/s) E/A Ratio 1.12 MV Mean Gr. 1.90 (<2mmHg) Pulmonary Valve PV Peak Velocity 90.0 (50-150 cm/s) Tricuspid Valve TR P. Velocity 205.00 cm/s RAP Estimate 10.00 mmHg RVSP 26.80 mmHg Left Ventricle The left ventricle is normal size. The left ventricular systolic function is normal. There is increased LV wall thickness (IVSd 1.5 cm). Proximal septal thickening is noted. There is no LVOT gradient at rest. There is presence of LVOT gradient with Valsalva maneuver of approximately 45 mmHg. The septum is asynchronous. Diastolic function is indeterminate. LVEF is 55%. Right Ventricle The right ventricle is normal size. The right ventricular systolic function is normal. Atria The left atrium size is normal. The right atrium size is normal. There is no Doppler evidence of interatrial shunt. Aortic Valve The aortic valve opens well. There is no aortic valvular stenosis. No aortic regurgitation is present. Mitral Valve There is systolic anterior motion of the mitral valve without septal contact at rest. The mitral valve is normal in structure. No evidence of mitral valve stenosis. Mild mitral regurgitation. Tricuspid Valve The tricuspid valve leaflets are thin and pliable. Mild tricuspid regurgitation. RVSP is 20-25 mmHg. Pulmonic Valve The pulmonary valve is normal in structure. Trace pulmonic regurgitation. Great Vessels The aortic root is normal in size. The ascending aorta is not well-visualized. IVC is normal in size and collapses >50% with inspiration. Pericardium There is no pericardial effusion. Other Information Study Quality: Fair Conclusion Normal biventricular systolic function. Asynchronous septum. Increased LV wall thickness (IVSd 1.5 cm). Proximal septal thickening is noted. Presence of LVOT gradient with Valsalva maneuver of approximately 45 mmHg. SHO without septal contact at rest. Mild MR, mild TR. In the setting of increased LV wall thickness, LVOT gradient with Valsalva maneuver, and presence of SHO, further evaluation for hypertrophic cardiomyopathy is recommended with cardiac MRI (HCM protocol) to evaluate for scar burden. Electronically signed by : Candy Samuel MD 05/21/2023 00:30:58
== END 2023-05-18 23:59 ==
LOC: RT 13:42
PROVIDERS: PCP Family Medicine; Visit Provider Nurse Practitioner Family
DX: I25.10 Atherosclerotic heart disease of native coronary artery without angina pectoris (principal); I42.2 Other hypertrophic cardiomyopathy; I10 Essential (primary) hypertension; G47.33 Obstructive sleep apnea (adult) (pediatric); E78.2 Mixed hyperlipidemia; Z95.5 Presence of coronary angioplasty implant and graft
CPT/HCPCS: 93306

== ENCOUNTER 2023-06-07 14:21 | Outpatient (CLI) | payer BC, SELFPAY ==
[2023-06-07 14:52] LABS: Basophils # 0.1 K/mm3 (0-0.2); Basophils % 0.8 % (0.1-2.0); Eosinophils # 0.1 K/mm3 (0.0-0.4); Eosinophils % 1.5 % (0.1-12.0); Hematocrit 46.7 % (42.0-52.0); Hemoglobin 15.6 g/dL (14.1-18.0); Lymphocytes # 3.1 K/mm3 (0.7-4.5); Lymphocytes % 36.5 % (10-50); Mean Corpuscular HGB Conc 33.5 g/dL (31.8-35.4); Mean Corpuscular Hemoglobin 32.4 pg (27.0-31.2); Mean Corpuscular Volume 96.5 fl (80-94); Mean Platelet Volume 8.1 fl (7.4-10.4); Monocytes # 0.4 K/mm3 (0.1-1.0); Monocytes % 4.6 % (1.7-9.3); Neutrophils # 4.8 K/mm3 (1.8-7.8); Neutrophils % 56.5 % (37.0-80.0); Platelet Count 205 K/mm3 (142-424); Red Blood Count 4.83 M/mm3 (4.60-6.20); Red Cell Distribution Width 14.5 % (11.5-17.5); White Blood Count 8.5 K/mm3 (4.8-10.8)
[2023-06-07 16:04] LABS: Alanine Aminotransferase 41 U/L (12-78); Albumin Level 4.3 g/dl (3.5-5.0); Alkaline Phosphatase 67 U/L (38-126); Anion Gap 12.1 mEq/L (5-15); Aspartate Amino Transferase 38 U/L (17-59); Bilirubin,Direct 0.2 mg/dl (0.0-0.4); Bilirubin,Indirect 0.6 mg/dL (0.0-0.9); Bilirubin,Total 0.8 mg/dl (0.2-1.3); Bilirubin,Unconjugated 0.6 mg/dL (0.0-1.1); Blood Urea Nitrogen 15 mg/dl (9-20); Calcium 9.8 mg/dl (8.4-10.2); Carbon Dioxide 25 mmol/L (22.0-30.0); Chloride 109 mmol/L (98-107); Cholesterol 162 mg/dl (140-200); Estimated Glomerular Filt Rate 77 ml/min (>60); GFR (African American) 94 ML/MIN (>60); Glucose 103 mg/dl (74-100); HDL Cholesterol 41 mg/dl (40-60); Magnesium 1.7 mg/dl (1.6-2.3); Potassium 4.1 mmoL/L (3.5-5.1); Sodium 142 mmol/L (136-145); Total Protein,Serum 6.6 g/dl (6.3-8.2); Triglycerides 228 mg/dl (30-150); VLDL Cholesterol 46 mg/dL (0-40)
[2023-06-07 16:15] LABS: Direct LDL Cholesterol 84.61 mg/dL (100-129)
[2023-06-07 16:22] LABS: Free T4 (Free Thyroxine) 0.71 ng/dl (0.78-2.19)
[2023-06-07 16:35] LABS: Thyroid Stimulating Hormone 1.22 uIU/mL (0.465-4.68)
== END 2023-06-07 23:59 | disposition home or self-care (01) ==
LOC: LAB 14:22
PROVIDERS: PCP Family Medicine; Visit Provider Nurse Practitioner
DX: I11.9 Hypertensive heart disease without heart failure (principal); I25.10 Atherosclerotic heart disease of native coronary artery without angina pectoris; G47.33 Obstructive sleep apnea (adult) (pediatric); E78.2 Mixed hyperlipidemia
CPT/HCPCS: 36415; 80048; 80061; 80076; 83735; 84439; 84443; 85025

== ENCOUNTER 2023-06-24 10:09 | Outpatient (CLI) | payer BC, SELFPAY ==
[2023-06-24] MEDS: GADOTERIDOL INJ 17ML SYRINGE 29 ML IV (11:55)
[2023-06-24] MEDS: SODIUM CHLORIDE 0.9% 50ML BAG 25 ML IV (11:55)
[2023-06-24] MEDS: SODIUM CHLORIDE 0.9% 10ML SYR (RAD ONLY) 10 ML IV (11:55)
== END 2023-06-24 23:59 | disposition home or self-care (01) ==
LOC: RAD 10:09
PROVIDERS: PCP Family Medicine; Visit Provider Nurse Practitioner
DX: I42.2 Other hypertrophic cardiomyopathy (principal); I25.10 Atherosclerotic heart disease of native coronary artery without angina pectoris; R93.1 Abnormal findings on diagnostic imaging of heart and coronary circulation; E78.2 Mixed hyperlipidemia; I10 Essential (primary) hypertension; G47.33 Obstructive sleep apnea (adult) (pediatric)
CPT/HCPCS: 75561; A9576

== ENCOUNTER 2023-07-18 06:04 | Outpatient (CLI) | payer BC, SELFPAY ==
--- NOTE | 2023-07-18 | CA_ITS ---
APPROVED REPORT Exam: Pharmacologic Technologist: Maci Miller, Ht: 5 ft 10 in Wt: 286 lbs BSA: 2.43 m2 HR: 57 bpm BP: 136/74 mmHg Rhythm: NSR Medical History Medications: Lisinopril,,,,, Omeprazole,,,,, Aspirin,,,,, Metformin,,,,, BisOPROLOL Fumarate,,,,, PriMIDONE,,,,, JaRDiance,,,,, RoSUVASTATIN,,,,, ADderALL,,,,, Ranolazine ER,,,,, Magnesium Chloride ER,,,,, Effexor XR,,,,, Stress Test Details Test: LEXISCAN Reason for pharmacologic stress test: physical limitation. HR Resting HR: 57 bpm Max Heart Rate (APMHR): 164 bpm Max HR Achieved: 78 bpm Target HR (85% APMHR): 139 bpm % of APMHR: 48 Recovery HR: 67 bpm BP Resting BP: 136.0/74.0 mmHg Max BP: 136.0/74.0 mmHg Recovery BP: 130.0/72.0 mmHg ECG Resting ECG: Early repolarization. Non-specific ST change Inferior leads Stress ECG: No significant ST changes Arrhythmia: None Clinical Exercise duration: 04:04 min Highest Stage Achieved: Stress ECG Conclusion 1 min: mild SOA. mild chest pressure. 2 min: resolved Symptoms: L-arm burning. IV blew 1st attempt. Pain eventually resolved. Arrhythmias/Ectopy: None. ST-T Changes: None. Test Summary REST . . . . . . . Resting REST 00:40 . . 57 . 136/ 74 . . Stage 1 01:00 . . 76 . . . . Stage 2 01:00 . . 73 . . . . Stage 3 01:00 . . 69 . 130/ 72 . . Stage 4 01:00 . . 66 . 128/ 74 . . Stage 4 01:04 . . 66 . 128/ 74 . Stop exercise at 04:04 RECOVERY 01:00 . . 68 . . . . RECOVERY 02:00 . . 67 . 124/ 70 . . RECOVERY 03:00 . . 63 . 130/ 72 . . RECOVERY 03:30 . . 65 . 130/ 72 . . Electronically signed by : Candy Samuel MD 07/19/2023 13:27:10
--- NOTE | 2023-07-18 06:31 | NM_ITS ---
APPROVED REPORT Exam: Nuclear Stress Test Indication: Chest pain, HTN, High cholesterol, CAD Patient Location: Outpatient Stress Tech: Maci Plummer [place] Tech:Alicia Bonner, ARRT, RT (R)(N) Ht: 5 ft 10 in Wt: 285 lbs HR: 57 bpm BP: 136/74 mmHg BSA: 2.43 m2 Rhythm: NSR TID: 1.14 BMI: 40.8 History: Chest pain, HTN, High cholesterol, CAD Procedure: Patient received 0.4 mg of intravenous Lexiscan, resting heart rate 57 bpm, resting blood pressure 136/74 mmHg, with Lexiscan maximum heart rate achieved was 78 bpm which is % of the maximum predicted heart rate and blood pressure was 136/74 mmHg. With Lexiscan, patient denied any complaint of chest pain. Cardiac Stress and Resting SPECT Images: Cardiac Stress and Resting SPECT images were obtained using technetium 99m Myoview 30.5 mCi stress and 10.83 mCi at rest. Resting and stress imaging in supine and prone positions demonstrate a medium sized, moderate, partially reversible perfusion defect in the basal to mid inferior LV wall. Gated imaging demonstrates normal global LV systolic function. There is mild hypokinesis of the basal inferior LV wall. LVEF is calculated at 50%. Conclusion: Medium sized, moderate, partially reversible perfusion defect in the basal to mid inferior LV wall. Findings are suggestive of partial reversible ischemia. Gated imaging demonstrates normal global LV systolic function. There is mild hypokinesis of the basal inferior LV wall. LVEF is calculated at 50%. Electronically signed by : Candy Samuel MD 07/19/2023 13:28:54
[2023-07-18] MEDS: ISOTOPE MYOVIEW (PER STUDY) 1 DOSE IV (08:21)
[2023-07-18] MEDS: REGADENOSON 0.4MG/5ML SYRINGE 0.4 MG IV (08:21)
[2023-07-18] MEDS: SODIUM CHLORIDE 0.9% 10ML SYR (RAD ONLY) 10 ML IV ×2 (08:21)
== END 2023-07-18 23:59 | disposition home or self-care (01) ==
LOC: RAD 06:05
PROVIDERS: PCP Family Medicine; Visit Provider Nurse Practitioner
DX: R07.9 Chest pain, unspecified (principal); R06.02 Shortness of breath; I25.10 Atherosclerotic heart disease of native coronary artery without angina pectoris
CPT/HCPCS: 78452; 93017; 93018; A9502; J2785

== ENCOUNTER 2023-07-27 10:54 | Day surgery (SDC) | payer BC, SELFPAY ==
[2023-07-27] VITALS (10 sets, daily range): BP systolic 115–151; BP diastolic 54–85; PULSE 50–59; RESP 15–17; TEMP 36.6; O2SAT 90–98; BMI 41.3
--- NOTE | 2023-07-27 07:10 | IR_ITS ---
APPROVED REPORT Patient Location: Outpatient PROCEDURES Left heart catheterization Left ventriculogram Selective coronary angiogram INDICATION Abnormal Myoview, Angina pectoris, Informed consent was obtained prior to the procedure. COMPLICATIONS NONE Estimated Blood Loss: LESS THAN 10 ML TECHNIQUE One percent lidocaine used to anesthetize the right anterior aspect of the wrist. The right radial artery was accessed via the Seldinger technique. A 6 Icelandic sheath was placed in the right radial artery. 2.5 mg of Verapamil, 800 mcg of nitroglycerin, 1mg Lidocaine and 5000 U Heparin were given through the arterial sheath. The papa catheter was also used to perform left heart catheterization, left ventriculogram and selective coronary angiogram. At the end of the procedure the sheath was removed good hemostasis was achieved using Traclet band, patient was transferred to the postop holding area in stable condition. ANGIOGRAPHIC RESULTS The left main artery Normal The left anterior descending artery Has proximal 10% luminal irregularities with mid vessel smooth 30 and 40% stenoses. There is a large first diagonal artery which has a proximal 30% stenosis The circumflex artery Is dominant and has a mid vessel 40% stenosis with a 40% stenosis in the proximal terminal obtuse marginal artery The right coronary artery This codominant and has proximal 30% stenosis with a mid vessel 30 to 40% stenosis and an additional distal 30% stenosis The CHO ventriculogram reveals Normal 60 to 65% The left ventricular end-diastolic pressure Severely to critically elevated at 40 to 45 mmHg IMPRESSION Moderate coronary artery disease Normal ejection fraction Severely to critically elevated LVEDP PLAN 1. Treatment of HFpEF 2. Medical management for coronary artery disease 3. Recommend sleep study 4. LDL less than 55 to achieve that high intensity statin 5. Avoidance of tobacco products 6. Risk factor modification Electronically signed by : Jacobo Coyle MD 07/27/2023 13:22:59
[2023-07-27 11:26] LABS: Basophils # 0.1 K/mm3 (0-0.2); Basophils % 0.9 % (0.1-2.0); Eosinophils # 0.1 K/mm3 (0.0-0.4); Eosinophils % 1.6 % (0.1-12.0); Hematocrit 47.3 % (42.0-52.0); Hemoglobin 15.7 g/dL (14.1-18.0); Lymphocytes # 2.3 K/mm3 (0.7-4.5); Lymphocytes % 35.3 % (10-50); Mean Corpuscular HGB Conc 33.1 g/dL (31.8-35.4); Mean Corpuscular Volume 99.5 fl (80-94); Mean Platelet Volume 8.2 fl (7.4-10.4); Monocytes # 0.3 K/mm3 (0.1-1.0); Monocytes % 4.9 % (1.7-9.3); Neutrophils # 3.7 K/mm3 (1.8-7.8); Neutrophils % 57.2 % (37.0-80.0); Platelet Count 195 K/mm3 (142-424); Red Blood Count 4.75 M/mm3 (4.60-6.20); White Blood Count 6.4 K/mm3 (4.8-10.8)
[2023-07-27 11:57] LABS: Chloride 105 mmol/L (98-107); Potassium 4.1 mmoL/L (3.5-5.1); Sodium 139 mmol/L (136-145)
[2023-07-27 12:00] LABS: Anion Gap 14.1 mEq/L (5-15); Blood Urea Nitrogen 20 mg/dl (9-20); Calcium 9.4 mg/dl (8.4-10.2); Carbon Dioxide 24 mmol/L (22.0-30.0); Creatinine Clearance Estimated 85 mL/min (50-200); Estimated Glomerular Filt Rate 77 ml/min (>60); GFR (African American) 94 ML/MIN (>60); Glucose 137 mg/dl (74-100)
[2023-07-27] MEDS: LIDOCAINE 1% 10ML MDV 20 ML IJ (12:47)
[2023-07-27] MEDS: diphenhydrAMINE 50MG/ML VIAL 50 MG IV (12:47)
[2023-07-27] MEDS: HEPARIN 1,000 UNITS/ML 10ML VIAL (CATH LAB) 10000 UNIT IV (12:47)
[2023-07-27] MEDS: HEPARIN 1,000 UNITS/500ML NS (CATH LAB) 3000 UNIT IV (12:47)
[2023-07-27] MEDS: NITROGLYCERIN 800MCG/8ML SYR (CATH LAB) 800 MCG IA (12:47)
[2023-07-27] MEDS: 0.9 % SODIUM CHLORIDE 500 ML 25 ML IV (12:47)
[2023-07-27] MEDS: VERAPAMIL 2.5MG/ML 2ML VIAL 2.5 MG IV (12:47)
[2023-07-27] MEDS: FENTANYL 100MCG/2ML VIAL 50 MCG IV (12:48)
[2023-07-27] MEDS: MIDAZOLAM HCL 1MG/1ML 5ML VIAL 1 MG IV (12:48)
[2023-07-27] MEDS: IOPAMIDOL-370 (76%);100ML BOTTLE 80 ML IV (14:42)
== END 2023-07-27 15:31 | disposition home or self-care (01) ==
PROVIDERS: PCP Family Medicine; Visit Provider Internal Medicine
DX: I25.118 Atherosclerotic heart disease of native coronary artery with other forms of angina pectoris (principal); R07.9 Chest pain, unspecified; R93.1 Abnormal findings on diagnostic imaging of heart and coronary circulation; E11.9 Type 2 diabetes mellitus without complications; I10 Essential (primary) hypertension; E78.2 Mixed hyperlipidemia; Z95.5 Presence of coronary angioplasty implant and graft; Z79.899 Other long term (current) drug therapy; I42.2 Other hypertrophic cardiomyopathy; Z79.84 Long term (current) use of oral hypoglycemic drugs
CPT/HCPCS: 80048; 85025; 93458; 99152; C1725; C1760; C1769; J1644; J2250; J3010; Q9967

== ENCOUNTER 2023-10-15 12:05 | Emergency (ER) | payer BC, SELFPAY ==
[2023-10-15 12:15] VITALS: BP 128/72; PULSE 70; RESP 20; TEMP 36.8; O2SAT 98; BMI 40.8
--- NOTE | 2023-10-15 12:34 | ED_ITS ---
Discharge Plan Disposition Patient Disposition: Home, Self-Care Condition: Good Prescriptions Prescriptions: New amoxicillin 500 mg tablet 500 mg PO BID 10 Days Qty: 20 0RF fluticasone propionate 50 mcg/actuation spray,suspension 1 spray intranasal DAILY Qty: 9.9 0RF No Action aspirin [Adult Low Dose Aspirin] 81 mg tablet,delayed release (DR/EC) 81 mg PO DAILY lisinopril 20 mg tablet 20 mg PO DAILY venlafaxine [Effexor XR] 75 mg capsule,extended release 24hr 75 mg PO DAILY Jardiance 10 mg tablet 10 mg PO DAILY primidone 50 mg tablet See Rx Instructions PO .COMPLEX 90 Days Qty: 450 3RF Rx Instructions: Take 100 mg (2 tablets) every morning and 150 mg (3 tablets) nightly dextroamphetamine-amphetamine 20 mg capsule,extended release 24hr 20 mg PO DAILY Patient Comments: TAKE 1 CAPSULE BY MOUTH ONCE DAILY IN THE MORNING Ozempic 0.25 mg or 0.5 mg (2 mg/3 mL) pen injector 0.5 mg SQ WEEKLY Qty: 3 2RF Rx Instructions: for 4 weeks bisoprolol fumarate 10 mg tablet See Rx Instructions .ROUTE .COMPLEX Qty: 180 3RF Dose Instruction: Take 1 tablet by mouth twice daily Rx Instructions: Take 1 tablet by mouth twice daily bumetanide 1 mg Tablet 1 mg PO DAILY Qty: 30 3RF ranolazine 1,000 mg tablet extended release 12 hr 1,000 mg PO BID Patient Comments: TAKE 1 TABLET BY MOUTH TWICE DAILY FOR ANGINA Referrals Follow up/Referrals: Odette Aiken MD [Primary Care Provider] - See instructions Activity Restrictions/Add. Instructions Additional Instructions/Restrictions: Start antibiotic patient to take as ordered for a full length of time even if you feel better. Sinus infections do not get better overnight. It may take 2-3 days to notice much improvement so be sure to use conservative measures as discussed for symptoms. Flonase 1 spray each nostril daily to help with nasal congestion, sinus and ear pressure/information Increase fluids Humidifier/vaporizer as needed Tylenol and ibuprofen as needed for fever or pain. If symptoms do not improve or get worse return or be seen in the ER Follow-up with primary care this week Clinical Impressions Clinical Impression: Sinusitis Instructions Patient Instructions: DI for Sinusitis Print Language Print Language: Tajik Discharge ED Provider: Roger ([facility] HPI General Stated complaint: chest congestion, cough, stuffy ears Mode of Arrival: Ambulatory Source of Information: Patient Limitations: No Limitations Time Seen by Provider: 10/15/23 12:34 Description of Symptoms (Recalled from Triage Doc. by RN): PATIENT C/O CHEST CONGESTION, COUGH, AND EARS STOPPED UP SINCE YESTERDAY HEENT Symptoms (Recalled from RN notes): Yes Resp Symptoms (Recalled from RN notes): Yes Skin Symptoms (Recalled from RN notes): No MS Symptoms (Recalled from RN notes): No Functional Status (Recalled from RN notes): WNL History of Present Illness Provider Complaint: 57 yr old male presents for c/o chest congestion, cough, stuffy ears, sinus pressure, and green thick drainage Related Data Home Medications ?Medication ?Instructions ?Recorded ?Confirmed aspirin 81 mg tablet,delayed 81 mg PO DAILY HEART HEALTH 03/11/17 10/15/23 release (Adult Low Dose Aspirin) lisinopril 20 mg tablet 20 mg PO DAILY BLOOD PRESSURE 03/11/17 10/15/23 empagliflozin 10 mg tablet 10 mg PO DAILY 10/16/21 10/15/23 (Jardiance) venlafaxine 75 mg capsule,extended 75 mg PO DAILY Depression 04/30/22 10/15/23 release 24 hr (Effexor XR) dextroamphetamine-amphetamine ER 20 mg PO DAILY 09/08/23 10/15/23 20 mg 24hr capsule,extend release ranolazine 1,000 mg 1,000 mg PO BID 10/15/23 10/15/23 tablet,extended release,12 hr Previous Rx's ?Medication ?Instructions ?Recorded bisoprolol fumarate 10 mg tablet See Rx Instructions .Route 04/14/23 .COMPLEX #180 tabs bumetanide 1 mg tablet 1 mg PO DAILY #30 tabs 07/27/23 primidone 50 mg tablet See Rx Instructions PO .COMPLEX 08/22/23 tremor 90 days #450 tabs semaglutide 0.25 mg or 0.5 mg (2 0.5 mg (0.736 mL) SQ WEEKLY #3 mL 09/08/23 mg/3 mL) subcutaneous pen injector (Ozempic) amoxicillin 500 mg tablet 500 mg PO BID 10 days #20 tabs 10/15/23 fluticasone propionate 50 1 spray intranasal DAILY #9.9 mL 10/15/23 mcg/actuation nasal spray,suspension Allergies Allergy/AdvReac Type Severity Reaction Status Date / Time latex Allergy Intermediate I-RASH Verified 09/08/23 13:16 spironolactone AdvReac Mild weak,diaphoresis, Verified 09/08/23 13:16 [From Aldactone] felt really bad while taking. Worker's Comp Is this a Worker's Comp case?: No [facility] Disclaimer: The information contained in this section may have been updated after the patient was seen, as this information can be updated by other users. Medical History , [employer]) BMI 40.0-44.9, adult Typical angina Abnormal nuclear cardiac imaging test Hypertrophic cardiomyopathy Anxiety Kidney stones Diabetes mellitus, type 2 Chest pain HTN (hypertension) LETY (obstructive sleep apnea) Dyspnea HLD (hyperlipidemia) CAD (coronary artery disease) Surgical History , [employer]) Stented coronary artery Social History , [employer]) Smoking Status: Never smoker second hand exposure: No alcohol intake: current alcohol intake frequency: a few times a week substance use type: denies use current occupational status: employed Travel in the last 8 weeks: None household members: spouse and children housing: house current occupation: [employer] current occupational exposures/hazards: No caffeine: Yes ROS Obtained: Yes All systems reviewed & no additional complaints except as documented Constitutional Constitutional: Reports system reviewed and no additional complaints, except as documented and Reports as per HPI Eyes Eyes: Reports system reviewed and no additional complaints, except as documented ENT Ears, Nose, Mouth, and Throat: Reports system reviewed and no additional complaints, except as documented, Reports as per HPI, Reports otalgia, Reports nasal congestion, Reports nasal discharge, Reports post nasal drip, Reports sinus pressure and Reports sore throat Cardiovascular Cardiovascular: Reports system reviewed and no additional complaints, except as documented Respiratory Respiratory: Reports system reviewed and no additional complaints, except as documented Gastrointestinal Gastrointestingal: Reports system reviewed and no additional complaints, except as documented Integumentary/Breasts Skin/Breast: Reports system reviewed and no additional complaints, except as documented Neurologic Neurologic: Reports system reviewed and no additional complaints, except as documented Endocrine Endocrine: Reports system reviewed and no additional complaints, except as documented Hematologic/Lymphatic Henatologic/Lymphatic: Reports system reviewed and no additional complaints, except as documented Allergic/Immunologic Allergic/Immunologic: Reports system reviewed and no additional complaints, except as documented Physical Exam General General appearance: alert and in no apparent distress Head Head exam: atraumatic Eye Eye exam: Present normal appearance and PERRL ENT ENT exam: Present mucous membranes moist and TM's normal bilaterally Expanded ENT Exam Nose exam: Present sinus tenderness Respiratory Respiratory exam: Present normal lung sounds bilaterally Cardiovascular Cardiovascular exam: Present regular rate and normal rhythm Neurological Exam Neurological exam: Present alert and oriented X3 Skin Skin exam: Present warm and intact Medical Decision Making Medical Records Medical records reviewed: Yes I reviewed the patient's medical records. Karl Inquiry Pt receiving controlled substance: No Karl was queried for this patient: No Vital Signs: 10/15/23 12:15 Temperature 98.2 F Temperature Source Oral Pulse Rate [Left Brachial] 70 Respiratory Rate 20 Blood Pressure [Left Arm] 128/72 Blood Pressure Mean [Left Arm] 90 Blood Pressure Source [Left Arm] Automatic Cuff Blood Pressure Position [Left Arm] Sitting 02 Sat by Pulse Oximetry 98 Oxygen Delivery Method Room Air Lab Data Lab results reviewed: Yes I reviewed the patient's lab results.
[2023-10-15 12:40] VITALS: BP 128/72; PULSE 70; RESP 20; TEMP 36.8; O2SAT 98
== END 2023-10-15 12:43 | disposition home or self-care (01) ==
PROVIDERS: Emergency Provider Nurse Practitioner Family; PCP Family Medicine
DX: J01.90 Acute sinusitis, unspecified (principal); H92.03 Otalgia, bilateral; R05.9 Cough, unspecified; R09.89 Other specified symptoms and signs involving the circulatory and respiratory systems
CPT/HCPCS: 99212; 99214; G0463

== ENCOUNTER 2024-06-24 16:15 | Emergency (ER) | payer BC, SELFPAY ==
[2024-06-24 16:21] VITALS: BP 131/75; PULSE 64; RESP 18; TEMP 36.6; O2SAT 100; BMI 35.9
--- OUTSIDE RECORDS SUMMARY | 2024-06-24 16:26 | XMS_ITS ---
Author Organization Unknown Medications Medication Instructions Effective Dates (start - stop) Status 24 HR amphetamine aspartate 5 MG / amphetamine sulfate 5 MG / dextroamphetamine saccharate 5 MG / dextroamphetamine sulfate 5 MG Extended Release Oral Capsule [Adderall] [id number]:00:00.000+00: 00 - Completed 24 HR amphetamine aspartate 5 MG / amphetamine sulfate 5 MG / dextroamphetamine saccharate 5 MG / dextroamphetamine sulfate 5 MG Extended Release Oral Capsule [Adderall] [id number]::00.000+00: 00 - Completed 24 HR amphetamine aspartate 5 MG / amphetamine sulfate 5 MG / dextroamphetamine saccharate 5 MG / dextroamphetamine sulfate 5 MG Extended Release Oral Capsule [Adderall] [id number]::00.000+00: 00 - Completed amphetamine aspartate 5 MG / amphetamine sulfate 5 MG / dextroamphetamine saccharate 5 MG / dextroamphetamine sulfate 5 MG Oral Tablet [id number]::.000+00: 00 - Completed 24 HR amphetamine aspartate 5 MG / amphetamine sulfate 5 MG / dextroamphetamine saccharate 5 MG / dextroamphetamine sulfate 5 MG Extended Release Oral Capsule [id number]:00:00.000+ 00: 00 - Completed amphetamine aspartate 5 MG / amphetamine sulfate 5 MG / dextroamphetamine saccharate 5 MG / dextroamphetamine sulfate 5 MG Oral Tablet [id number]::00.+00: 00 - Completed 24 HR amphetamine aspartate 5 MG / amphetamine sulfate 5 MG / dextroamphetamine saccharate 5 MG / dextroamphetamine sulfate 5 MG Extended Release Oral Capsule [id number]:00:00.000+ 00: 00 - Completed amphetamine aspartate 5 MG / amphetamine sulfate 5 MG / dextroamphetamine saccharate 5 MG / dextroamphetamine sulfate 5 MG Oral Tablet [id number]:00:00.000+00: 00 - Completed 24 HR amphetamine aspartate 5 MG / amphetamine sulfate 5 MG / dextroamphetamine saccharate 5 MG / dextroamphetamine sulfate 5 MG Extended Release Oral Capsule [Adderall] [id number]:00:00.000+00: 00 - Completed amphetamine aspartate 5 MG / amphetamine sulfate 5 MG / dextroamphetamine saccharate 5 MG / dextroamphetamine sulfate 5 MG Oral Tablet [id number]:00:00.000+00: 00 - Completed 24 HR amphetamine aspartate 5 MG / amphetamine sulfate 5 MG / dextroamphetamine saccharate 5 MG / dextroamphetamine sulfate 5 MG Extended Release Oral Capsule [Adderall] [id number]:00:00.000+00: 00 - Completed 24 HR amphetamine aspartate 5 MG / amphetamine sulfate 5 MG / dextroamphetamine saccharate 5 MG / dextroamphetamine sulfate 5 MG Extended Release Oral Capsule [Adderall] [id number]:00:00.000+00: 00 - Completed 24 HR amphetamine aspartate 5 MG / amphetamine sulfate 5 MG / dextroamphetamine saccharate 5 MG / dextroamphetamine sulfate 5 MG Extended Release Oral Capsule [Adderall] [id number]:00:00.000+00: 00 - Completed 24 HR amphetamine aspartate 5 MG / amphetamine sulfate 5 MG / dextroamphetamine saccharate 5 MG / dextroamphetamine sulfate 5 MG Extended Release Oral Capsule [Adderall] [id number]:00:00.000+00: 00 - Completed 24 HR amphetamine aspartate 5 MG / amphetamine sulfate 5 MG / dextroamphetamine saccharate 5 MG / dextroamphetamine sulfate 5 MG Extended Release Oral Capsule [Adderall] [id number]:00:00.000+00: 00 - Completed empagliflozin 10 MG Oral Tab let [Jardiance] [id number]:00:00.000+00: 00 - Completed empagliflozin 10 MG Oral Tab let [Jardiance] [id number]:00:00.000+00: 00 - Completed empagliflozin 10 MG Oral Tab let [Jardiance] [id number]:00:00.000+00: 00 - Completed empagliflozin 10 MG Oral Tab let [Jardiance] [id number]:00:00.000+00: 00 - Completed empagliflozin 10 MG Oral Tab let [Jardiance] [id number]:00:00.000+00: 00 - Completed empagliflozin 10 MG Oral Tab let [Jardiance] [id number]:00:00.000+00: 00 - Completed empagliflozin 10 MG Oral Tab let [Jardiance] [id number]:00:00.000+00: 00 - Completed empagliflozin 10 MG Oral Tab let [Jardiance] [id number]:00:00.000+00: 00 - Completed empagliflozin 10 MG Oral Tab let [Jardiance] [id number]:00:00.000+00: 00 - Completed lisinopril 20 MG Oral Tablet 03-18-15:00:00.000+00: 00 - Completed metformin hydrochloride 500 MG Oral Tablet [id number]:00:00.000+00: 00 - Completed lisinopril 20 MG Oral Tablet 03-21-28:00:00.000+00: 00 - Completed primidone 50 MG Oral Tablet 2021:00:00.000+00: 00 - Completed lisinopril 20 MG Oral Tablet 04-09-28:00:00.000+00: 00 - Completed metformin hydrochloride 500 MG Oral Tablet [id number]:00:00.000+00: 00 - Completed primidone 50 MG Oral Tablet 2022:00:00.000+00: 00 - Completed lisinopril 20 MG Oral Tablet 04-12-24:00:00.000+00: 00 - Completed rosuvastatin calcium 20 MG O ral Tablet [id number]:00:00.000+00: 00 - Completed rosuvastatin calcium 20 MG O ral Tablet [id number]:00:00.000+00: 00 - Completed primidone 50 MG Oral Tablet 2022:00:00.000+00: 00 - Completed primidone 50 MG Oral Tablet 2022:00:00.000+00: 00 - Completed metformin hydrochloride 500 MG Oral Tablet [id number]:00:00.000+00: 00 - Completed metformin hydrochloride 500 MG Oral Tablet [id number]:00:00.000+00: 00 - Completed rosuvastatin calcium 20 MG O ral Tablet [id number]:00:00.000+00: 00 - Completed bisoprolol fumarate 10 MG Or al Tablet [id number]:00:00.000+00: 00 - Completed benzonatate 100 MG Oral Capsule [id number]:00:00.000+00: 00 - Completed 12 HR ranolazine 1000 MG Ext ended Release Oral Tablet [id number]:00:00.000+00: 00 - Completed 12 HR ranolazine 1000 MG Ext ended Release Oral Tablet [id number]:00:00.000+00: 00 - Completed 12 HR ranolazine 1000 MG Ext ended Release Oral Tablet [id number]:00:00.000+00: 00 - Completed 12 HR ranolazine 1000 MG Ext ended Release Oral Tablet [id number]:00:00.000+00: 00 - Completed bisoprolol fumarate 10 MG Or al Tablet [id number]:00:00.000+00: 00 - Completed 12 HR ranolazine 1000 MG Ext ended Release Oral Tablet [id number]:00:00.000+00: 00 - Completed 24 HR venlafaxine 75 MG Exte nded Release Oral Capsule [id number]:00:00.000+00: 00 - Completed bisoprolol fumarate 10 MG Or al Tablet [id number]:00:00.000+00: 00 - Completed 12 HR ranolazine 1000 MG Ext ended Release Oral Tablet [id number]:00:00.000+00: 00 - Completed 12 HR ranolazine 1000 MG Ext ended Release Oral Tablet [id number]:00:00.000+00: 00 - Completed bisoprolol fumarate 10 MG Or al Tablet [id number]:00:00.000+00: 00 - Completed 12 HR ranolazine 1000 MG Ext ended Release Oral Tablet [id number]:00:00.000+00: 00 - Completed 12 HR ranolazine 1000 MG Ext ended Release Oral Tablet [id number]:00:00.00: 00 - Completed 24 HR venlafaxine 75 MG Exte nded Release Oral Capsule [id number]:00:00.+00: 00 - Completed 24 HR venlafaxine 75 MG Exte nded Release Oral Capsule [id number]:00:00.00: 00 - Completed 24 HR venlafaxine 75 MG Exte nded Release Oral Capsule [id number]:00:00.00: 00 - Completed rosuvastatin calcium 20 MG O ral Tablet [id number]:00:00.00: 00 - Completed cefdinir 300 MG Oral Capsule 03-17-28:00:00.+00: 00 - Completed Patient Care team information Name Category Status Period Participants - - Proposed period not known -
--- NOTE | 2024-06-24 16:40 | HMH.EDGENADL ---
Discharge Plan Disposition Patient Disposition: Home, Self-Care Chief Complaint: Ear Prescriptions Prescriptions: No Action metformin 500 mg tablet 500 mg PO DAILY Patient Comments: TAKE 1 TABLET BY MOUTH ONCE DAILY FOR 90 DAYS lisinopril 10 mg tablet 10 mg PO DAILY Patient Comments: TAKE 1 TABLET BY MOUTH ONCE DAILY rosuvastatin 20 mg tablet 20 mg PO DAILY aspirin [Adult Low Dose Aspirin] 81 mg tablet,delayed release (DR/EC) 81 mg PO DAILY venlafaxine [Effexor XR] 75 mg capsule,extended release 24hr 75 mg PO DAILY Jardiance 10 mg tablet 10 mg PO DAILY primidone 50 mg tablet See Rx Instructions PO .COMPLEX 90 Days Qty: 450 3RF Rx Instructions: Take 100 mg (2 tablets) every morning and 150 mg (3 tablets) nightly dextroamphetamine-amphetamine 20 mg capsule,extended release 24hr 20 mg PO DAILY Patient Comments: TAKE 1 CAPSULE BY MOUTH ONCE DAILY IN THE MORNING ranolazine 1,000 mg tablet extended release 12 hr 1,000 mg PO BID Qty: 180 1RF Patient Comments: TAKE 1 TABLET BY MOUTH TWICE DAILY FOR ANGINA bumetanide 1 mg tablet 1 mg PO DAILY Qty: 30 3RF bisoprolol fumarate 10 mg tablet See Rx Instructions .ROUTE .COMPLEX Qty: 180 3RF Dose Instruction: Take 1 tablet by mouth twice daily Rx Instructions: Take 1 tablet by mouth twice daily Ozempic 2 mg/dose (8 mg/3 mL) pen injector 2 mg SQ WEEKLY Qty: 3 2RF amoxicillin 500 mg tablet 500 mg PO BID 10 Days Qty: 20 0RF fluticasone propionate 50 mcg/actuation spray,suspension 1 spray intranasal DAILY Qty: 9.9 0RF Referrals Follow up/Referrals: Odette Aiken MD [Primary Care Provider] - See instructions Activity Restrictions/Add. Instructions Additional Instructions/Restrictions: Ear drops 3-4 times daily for 7 days. Follow-up with your family doctor as needed for this visit to the emergency department. Any other concerning signs or symptoms, return to your family doctor for further evaluation. Clinical Impressions Clinical Impression: Foreign body in left ear Print Language Print Language: Luxembourgish Discharge ED Provider: Glenroy Webb General Adult HPI General Chief complaint: Ear Stated complaint: Q-tip stuck in left ear Time Seen by Provider: 06/24/24 16:19 Mode of Arrival: Ambulatory Source of Information: Patient Description of Symptoms (Recalled from ER Triage Doc. by RN): Pt states he attempted to go to the clinic and they didn't have the tool to get the q-tip out of his ear History of Present Illness HPI narrative: Please note that above description of symptoms, in this electronic medical record under categorization of recalled from ER triage doctor by RN are reflective of an initial nursing assessment, however, is not reflective of my full history and physical exam that was personally taken and clarified. Consequentially, this preceding description of symptoms, which may include the patient's categorized chief complaint in the EMR, do not reflect my personal clinical impression, and the ultimate description of history of present illness and patient stated complaints should be deferred to this section of the note. Unless stated otherwise or congruent with this section of the note, additional signs, symptoms, or incongruence should be interpreted as inaccurate with my clinical impression. Related Data Home Medications ?Medication ?Instructions ?Recorded ?Confirmed aspirin 81 mg tablet,delayed 81 mg PO DAILY HEART HEALTH 03/11/17 01/17/24 release (Adult Low Dose Aspirin) empagliflozin 10 mg tablet 10 mg PO DAILY 10/16/21 01/17/24 (Jardiance) venlafaxine 75 mg capsule,extended 75 mg PO DAILY Depression 04/30/22 01/17/24 release 24 hr (Effexor XR) dextroamphetamine-amphetamine ER 20 mg PO DAILY 09/08/23 01/17/24 20 mg 24hr capsule,extend release lisinopril 10 mg tablet 10 mg PO DAILY 01/17/24 01/17/24 metformin 500 mg tablet 500 mg PO DAILY 01/17/24 01/17/24 rosuvastatin 20 mg tablet 20 mg PO DAILY 01/17/24 01/17/24 Previous Rx's ?Medication ?Instructions ?Recorded primidone 50 mg tablet See Rx Instructions PO .COMPLEX 08/22/23 tremor 90 days #450 tabs amoxicillin 500 mg tablet 500 mg PO BID 10 days #20 tabs 10/15/23 fluticasone propionate 50 1 spray intranasal DAILY #9.9 mL 10/15/23 mcg/actuation nasal spray,suspension ranolazine 1,000 mg 1,000 mg PO BID #180 tabs 03/19/24 tablet,extended release,12 hr bumetanide 1 mg tablet 1 mg PO DAILY #30 tabs 03/30/24 bisoprolol fumarate 10 mg tablet See Rx Instructions .Route 04/02/24 .COMPLEX #180 tabs semaglutide 2 mg/dose (8 mg/3 mL) 2 mg (0.75 mL) SQ WEEKLY #3 mL 06/18/24 subcutaneous pen injector (Ozempic) Allergies Allergy/AdvReac Type Severity Reaction Status Date / Time latex Allergy Intermediate I-RASH Verified 01/17/24 13:01 spironolactone (From AdvReac Mild weak,diaphoresis, Verified 01/17/24 13:01 Aldactone) felt really bad while taking. [facility] Disclaimer: The information contained in this section may have been updated after the patient was seen, as this information can be updated by other users. Medical History BMI 40.0-44.9, adult Typical angina Abnormal nuclear cardiac imaging test Hypertrophic cardiomyopathy Anxiety Kidney stones Diabetes mellitus, type 2 Chest pain HTN (hypertension) LETY (obstructive sleep apnea) Dyspnea HLD (hyperlipidemia) CAD (coronary artery disease) Surgical History Stented coronary artery 2017 Social History Smoking Status: Never smoker second hand exposure: No alcohol intake: current alcohol intake frequency: a few times a week substance use type: denies use current occupational status: employed Travel in the last 8 weeks?: None household members: spouse and children housing: house current occupation: [employer] current occupational exposures/hazards: No caffeine: Yes Have you lived/traveled outside US in past 30 days?: No Contact w/someone who lives/traveled outside US past 30 days?: No Exposure to someone with infectious disease in past 14 days?: No Do you have a fever (greater than 100.4 F or 38 C)?: No Have you tested positive for COVID-19?: No Exposed to someone with COVID-19 in past 14 days?: No Do you have a sore throat?: No Do you have a cough?: No Do you have any weakness?: No Do you have any diarrhea?: No Are you experiencing any unusual bleeding?: No Do you have any muscle aches/pain?: No Do you have any abdominal pain?: No Are you experiencing loss of taste or smell?: No Other Medical History Have you received the Flu Vaccine for this season: No Have you received the Pneumonia Vaccine: No ROS Obtained: Yes All systems reviewed & no additional complaints except as documented Physical Exam General General appearance: alert Head Head exam: atraumatic and normocephalic Eye Eye exam: Present normal appearance, PERRL and EOMI ENT ENT exam: Present other (Patient has small amount of cotton pressed up against the left tympanic membrane in the right upper quadrant. No obvious perforation) Neck Neck exam: Present normal inspection, full ROM and trachea midline Respiratory Respiratory exam: Absent respiratory distress, wheezes, stridor, accessory muscle use or prolonged expiratory phase Cardiovascular Cardiovascular exam: Present other (Pulses equal symmetric in upper and lower extremities) Abdominal Exam Abdominal exam: Present soft; Absent distention, tenderness or pulsatile mass Extremities Exam Extremities exam: Absent edema Neurological Exam Neurological exam: Present alert, oriented X3 and CN II-XII intact; Absent motor sensory deficit Skin Skin exam: Present warm and dry; Absent diaphoresis or erythema Medical Decision Making Medical Records Medical records reviewed: Yes I reviewed the patient's medical records. Screening: Per USPSTF and CDC recommendations, given the prevalence of disease in our region, it is our hospital?s policy to screen for HIV and viral Hepatitis for all patients aged 18 and over and those with ongoing risk factors. Karl Inquiry Pt receiving controlled substance: No Karl was queried for this patient: No Vital Signs: 06/24/24 16:21 Temperature 97.8 F Temperature Source Oral Pulse Rate [Right] 64 Respiratory Rate 18 Blood Pressure [Right Arm] 131/75 Blood Pressure Mean [Right Arm] 93 Blood Pressure Source [Right Arm] Automatic Cuff Blood Pressure Position [Right Arm] Sitting 02 Sat by Pulse Oximetry 100 Medical Decision Narrative: 58-year-old male presenting with ear foreign body. States that he was cleaning his ears out with a Q-tip just prior to arrival and part of the cotton broke off in his ear. No pain, no bleeding. Came in for further evaluation after going to the urgent care and being unable to remove it there. History obtained with patient. On arrival, very clinically well. On otic exam, he has a small piece of cotton wedged up against his tympanic membrane. Unable to remove with standard forceps. Tried irrigating with high-pressure irrigation. This did not work. Alligator forceps were utilized and otoscope. Able to be removed this way. Perforated TM on reevaluation. Was given neomycin/polymyxin/hydrocortisone drops. Because patient at baseline without signs or symptoms of clinical decompensation, deemed appropriate for discharge. Results were relayed to patient who voiced understanding and were agreeable to outpatient management and follow up. I discussed my clinical impression with patient and answered all questions. At this time, the evidence for any other entities in the differential is insufficient to warrant any further testing or ED observation. This was explained as well. Advisory was given that persistent or worsening symptoms require further evaluation. I confirmed the understanding of this discussion. Sales Representative [employer] disclaimer Much of this encounter note is an electronic soyfreeze operator spoken language to printed text. Electronic soyfreeze operator of the spoken language may permit errors. Although I have reviewed the note, some errors may still exist. Critical Care Critical Care Time Critical Care Time: No
--- NOTE | 2024-06-24 16:54 | PC.NURSE ---
Q-tip removed from patient's ear by wander issa
[2024-06-24 17:07] VITALS: BP 124/78; PULSE 78; RESP 18; TEMP 36.9; O2SAT 98
[2024-06-24] MEDS: NEOMYCIN-POLYMYXIN-HC OTIC SUSP 10ML 10 ML OT (17:09)
== END 2024-06-24 17:07 | disposition home or self-care (01) ==
PROVIDERS: Emergency Provider Emergency Medicine; PCP Family Medicine
DX: T16.2XXA Foreign body in left ear, initial encounter (principal); W44.8XXA Other foreign body entering into or through a natural orifice, initial encounter
CPT/HCPCS: 69200; 99283

== ENCOUNTER 2024-08-07 09:52 | Outpatient (CLI) | payer BC, SELFPAY ==
--- OUTSIDE RECORDS SUMMARY | 2024-07-09 07:30 | XMS_ITS ---
Author Organization [facility] Address [address] [place] [id number] Care Team Providers Care Automatic Line Set Up Mechanic Name Role Phone Reese Aiken Primary Care [...] Interpretation:Normal Performing Lab: Notes/Report: Test performed by [email or web address], [employer] , [address], [place] [address] Ren Weeks MD, Assistant Golf Coach CLIA: [id number] Sodium 140 135-145 mmol/L Potassium 4.2 3.5-5.3 [...] Duration: 30 day(s) 10/29/2019 Not-Taking Vital Signs Weight 259.6 lbs 07/09/2024 Blood pressure systolic 114 mm Hg 07/10/19 25 Blood pressure diastolic 76 mm Hg 025 Heart Rate 62 /min 07/09/2024 Height 69.50 in 07/09/2024 BMI 37.78 kg/m2 07/09/2024 Encounters Encounter Location Date Provider Diagnosis [facility] [address] [facility] [address] [facility] [address] [place], [place] [id number] 07/09/2024 Reese Aiken Attention deficit disorder F90.0 ; Type 2 diabetes mellitus without complications E11.9 ; 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 and 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 Assessments Encounter Date Diagnosis (ICD Code) Assessment Notes Treatment Notes Treatment Clinical Notes Section Notes 07/09/2024 Attention deficit disorder (ICD-10 - F90.0) 07/09/2024 Type 2 diabetes mellitus without complications (ICD-10 - E11.9) 07/09/2024 IHSS (idiopathic hypertrophic subaortic stenosis) (ICD-10 - I42.1) 07/09/2024 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 :1965 A ge:58 Y S ex:Male Date:07/09/2024 [facility] [address] [place], [id number] Subjective: * Chief Complaints: * 1 . [...] Palpitations. * ROS: D ERMATOLOGY: no R rpem. n o H madeleine. G ASTROENTEROLOGY: no [...] 06/25/21 Negative Cologuard, Gets eye exams at [facility]. * Surgical History: c arpel tunnel surgery in both hands , ganglion cyst removed from left hand , Heart cath and stent placement [facility] Dr. Coyle 07/01/16, heart cath, normal coronaries 03/23/17, Ear Tube, Right side June 2018. * Hospitalization/Major Diagno stic Procedure: s taph infection-[facility] , E coli-[facility] , clinic-ear infection 09/21, [facility]- chest pain and Flu 03/20-03/24/17. * [...] 4 . 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 * Procedure Codes: 20228 CAPILLARY BLOOD DRAW. 75519 GLYCATED HEMOGLOBIN TEST. Modifiers: QW 1036F TOBACCO NON-USER. G8752 MOST RECENT SYSTOLIC BP < 140MM HG. G8754 MOST RECENT DIASTOLIC BP < 90MM HG. 3044F HG A1C LEVEL LT 7.0%. G8783 BP SCR PRFRM RCMDD DEFIND SCR INTVL. * Electronic signature of Reese Aiken MD on 08/07/2024 at 09:55 AM EDT Sign off status: Pending * Provider: Reese Aiken M.D. Date: 07/09/2024 Generated for Kikai janet/Hernán/eTransmitting on: 0 08/07/2024 09:55 AM EDT History and Physical Notes * HPI [...]
--- OUTSIDE RECORDS SUMMARY | 2024-07-23 05:34 | XMS_ITS ---
[facility] Organization [facility] Address [address] [facility] [address] [facility] [address] [place] [id number] Care Team Providers Care Aco Coordinator Name Role Phone Reese Aiken Primary Care Provider REASON FOR VISIT due colonoscopy Encounters Encounter Location Date Provider Diagnosis [facility] [address] [place] [phone] 07/23/2024 Reese Aiken Screening for colon cancer Z12.11 Assessments Encounter Date Diagnosis (ICD Code) Assessment Notes Treatment Notes Treatment Clinical Notes Section Notes 07/23/2024 Screening for colon cancer (ICD-10 - Z12.11) Plan Of Treatment Pending Test Test Name Order Date Cologuard 07/23/2024 Next Appt Details Provider Name:Reese Becerra er, 10/12/2024 10:45:00 AM, [address] [facility], [address], [place], [phone], Progress Notes * Elias CHIDOB:1965 ( 58 yo M)Acc No.[id number]:07/23/2024 Patient: Elias ANAYA :1965 A ge:58 Y S ex:Male Address:[address] [place], [address] Subjective: * Chief Complaints: * D ue colonoscopy * Medical History: * Surgical History: * Hospitalization/Major Diagno stic Procedure: * Medications: Objective: * Vitals: * Physical Examination: Assessment: * Assessment: 1. S creening for colon cancer - Z12.11 (Primary) Plan: * Treatment: * Procedure Codes: * true * Date: Generated for Rachel gonzales/Hernán/Maricarmen on: 08/07/2024 09:55 AM EDT
--- OUTSIDE RECORDS SUMMARY | 2024-07-24 06:00 | XMS_ITS ---
Author Organization [facility] Address [address] [facility] [address] [facility] [address] [place] [phone] Care Team Providers Care Business Process Manager Name Role Phone Reese Aiken Primary Care Provider Results Component Value Reference Range Notes P-Microalbumin/Creatinine, R andom Urine Sample (Not yet reviewed by provider) Interpretation:Normal Performing Lab: Notes/Report: Test performed by [employer] [address] , [address], [place] [address] Ren Weeks MD, Penology Teacher CLIA: [id number] Albumin/Creatinine Ratio, Urine <23.07 0-30 ug/m g Microalbumin, Urine, Random <0.3 Creatinine, Urine 13.0 REASON FOR VISIT urine sample Encounters Encounter Location Date Provider Diagnosis [place] [address] [facility] [address] [place] [phone] 07/24/2024 Reese Aiken Type 2 diabetes mellitus without complications E11.9 Assessments Encounter Date Diagnosis (ICD Code) Assessment Notes Treatment Notes Treatment Clinical Notes Section Notes 07/24/2024 Type 2 diabetes mellitus without complications (ICD-10 - E11.9) Plan Of Treatment Pending Test Test Name Order Date P-Microalbumin/Creatinine, Random Urine Sample 07/24/2024 Next Appt Details Provider Name:Reese Becerra er, 10/12/2024 10:45:00 AM, [address] [facility], [address], [place], [phone], Progress Notes * Faheem CHI:1965 ( 58 yo M)Acc No.[id number]:07/24/2024 Patient: Elias ANAYA Provider: Reese Aiken M.D. :1965 A ge:58 Y S ex:Male Date:07/24/2024 Address:[address] [place] [address], [place], [id number] Subjective: * Chief Complaints: * 1 . Urine sample. * Medical History: Objective: * Vitals: Assessment: * Assessment: 1. T ype 2 diabetes mellitus without complications - E11.9 (Primary) Plan: * Treatment: Value Reference Range A lbumin/Creatinine Ratio, Urine <23.07 0-30 - ug /mg * C reatinine, Urine 13.0 - mg/dL * M icroalbumin, Urine, Random <0.3 - mg/dL * Images: Billing Information: * Visit Code: * Procedure Codes: * Electronic signature of Reese Aiken MD on 08/07/2024 at 09:55 AM EDT Sign off status: Pending * Provider: Reese Aiken M.D. Date: 0 07/24/2024 Generated for Rachel gonzales/Hernán/eTransmitting on: 0 08/07/2024 09:55 AM EDT
--- OUTSIDE RECORDS SUMMARY | 2024-08-07 09:56 | XMS_ITS | Patient Health Record ---
Author Organization [facility] Address [address] [facility] [address] ROSE MARIE Mancuso [id number] Care Team Providers Care Lehr Tender Name Role Phone Reese Aiken Primary Care Provider Rosalie Quevedo Unavailable [phone] Ellis Cisneros Unavailable [phone] Allergies Allergen (clinical drug ingredient) Drug/Non Drug Allergy documented on EMR Reaction Allergy Type Onset Date Status Latex Latex hargrove his skin Allergy Activ e Results Component Value Reference Range Notes Glycohemoglobin A1c (in hous e) Reviewed date:07/19/2024 03:47:55 PM Interpretation:5.6 Normal Performing Lab: Notes/Report: 5.6 Normal glycohemoglobin 5.6% 5 - 6.5 % P-Microalbumin/Creatinine, R andom Urine Sample (Not yet reviewed by provider) Interpretation:Normal Performing Lab: Notes/Report: Test performed by [facility] [address] [place] [address] , [address], [place] [address] Ren Weeks MD, Wool Cleaner CLIA: [id number] Albumin/Creatinine Ratio, Urine <23.07 0-30 ug/m g Microalbumin, Urine, Random <0.3 Creatinine, Urine 13.0 P-Microalbumin/Creatinine, R andom Urine Sample Reviewed date:07/14/2024 08:06:38 AM Interpretation:not performed Performing Lab: Notes/Report: not performed P-Comprehensive Metabolic Pa jaswinder (CMP) Reviewed date:07/19/2024 03:47:55 PM Interpretation:Normal Performing Lab: Notes/Report: Test performed by [facility] [address] [place] [address] , [address], [place] [address] Rne Weeks MD, Wool Cleaner CLIA: [id number] Sodium 140 135-145 mmol/L Potassium 4.2 3.5-5.3 [...] 0.6 <0.2-1.2 mg/dL A/G Ratio 2.0 1.1-2.5 P-PSA Reviewed date:04/03/2024 11:21:50 AM Interpretation:Normal Performing Lab: Notes/Report: Test performed by [facility] [address] [place] [address] , [address], [place] [address] Ren Weeks MD, Wool Cleaner CLIA: [id number] PSA 0.40 <4.00 ng/mL Please note this is an ultrasensitive PSA assay with a lower limit of detection of 0.014 ng/mL. This test is performed by the [employer] ECLIA methodology. Values obtained with different assay methods or kits cannot be directly compared. P-Comprehensive Metabolic Pa jaswinder (CMP) Reviewed date:04/03/2024 11:21:32 AM Interpretation:Normal Performing Lab: Notes/Report: Test performed by [facility] [address] [place] [address] , [address], [place] [address] Ren Weeks MD, Wool Cleaner CLIA: [id number] Sodium 141 135-145 mmol/L Potassium 4.3 3.5-5.3 mmol/L Chloride 102 97-108 mmol/L CO2 26 22-32 mmol/L Glucose 86 65-99 mg/dL BUN 20 6-20 mg/dL Creatinine 1.06 0.70-1.30 mg/dL Calcium 10.0 8.6-10.4 mg/dL eGFR by Creatinine 82 >59 mL/min/1.73m2 Protein 6.5 6.0-8.3 g/dL Albumin 4.6 3.5-5.3 g/dL Alkaline Phosphatase 75 40-129 IU/L ALT (SGPT) 27 <5-55 IU/L AST (SGOT) 23 <5-46 IU/L Bilirubin, Total 0.4 <0.2-1.2 mg/dL A/G Ratio 2.4 1.1-2.5 Glycohemoglobin A1c (in hous e) Reviewed date:04/04/2024 01:00:22 PM Interpretation:5.5 Performing Lab: Notes/Report: 5.5 glycohemoglobin 5.5% 5 - 6.5 % Glycohemoglobin A1c (in hous e) Reviewed date:12/30/2023 02:01:04 PM Interpretation:5.6% Performing Lab: Notes/Report: 5.6% glycohemoglobin 5.6% 5 - 6.5 % P-Comprehensive Metabolic Pa jaswinder (CMP) Reviewed date:01/03/2024 03:53:30 PM Interpretation:gluc 155 Performing Lab: Notes/Report: Test performed by [facility] [address] [place] [address] , [address], [place] [address] Ren Weeks MD, Wool Cleaner CLIA: [id number] Sodium 136 135-145 mmol/L Potassium 3.8 3.5-5.3 mmol/L Chloride 100 97-108 mmol/L CO2 23 22-32 mmol/L Glucose 155 65-99 mg/dL BUN 18 6-20 mg/dL Creatinine 1.14 0.70-1.30 mg/dL Calcium 9.9 8.6-10.4 mg/dL eGFR by Creatinine 75 >59 mL/min/1.73m2 Protein 6.8 6.0-8.3 g/dL Albumin 4.6 3.5-5.3 g/dL Alkaline Phosphatase 79 40-129 IU/L ALT (SGPT) 28 <5-55 IU/L AST (SGOT) 26 <5-46 IU/L Bilirubin, Total 0.4 <0.2-1.2 mg/dL A/G Ratio 2.1 1.1-2.5 P-Lipid Panel Reviewed date:01/03/2024 03:53:30 PM Interpretation:trigs 162, hdl 35 Performing Lab: Notes/Report: Test performed by [facility], [address] , [address], [place] [address] Ren Weeks MD, Wool Cleaner CLIA: [id number] Cholesterol 123 <200 mg/dL Triglycerides 162 <150 mg/dL HDL Cholesterol 35 >39 mg/dL Cholesterol / HDL Ratio 3.51 0.00-4.99 Ratio Non-HDL Cholesterol 88 <130 mg/dL LDL Cholesterol (Calculation) 56 <130 mg/dL LDL Cholesterol Levels* Less than 100 mg/dL Optimal 100 to 129 mg/dL Near Optimal/ Above Optimal 130 to 159 mg/dL Borderline High 160 to 189 mg/dL High 190 mg/dL and above Very High * Categories as recommended by the 2004 ATPIII guidelines LDL/HDL Ratio 1.6 <3.3 Ratio LDL Cholesterol Patient History Test Date: 12/30/2023 LDL Results: 56 Units: mg/dL % Change: - Medications Medication SIG (Take, Route, Frequency, Duration) Notes Start Date End Date Status PriLOSEC OTC 20 MG 1 tab(s) orally once a day Active Viagra 100 MG 1 tab(s) orally once a day 06/25/2015 Not-Taking Fluticasone Propionate 50 MCG/ACT 1 spray each nostril once a day 04/09/2014 Active Venlafaxine HCl ER 75 MG Take 1 capsule by mouth once daily for 90 days; Duration: 90 Active Vitamin D3 50 MCG (1999 UT) 1 tab(s) orally once a day 03/15/2013 Active Bisoprolol Fumarate 10 MG 1 tab(s) orally bid Active Adderall 20 MG 2 tab(s) orally once a day in the afternoon as needed; Duration: 30 days 05/24/2024 Active Ozempic (1 MG/DOSE) 4 MG/3ML as directed Subcutaneous Act juanpablo Rosuvastatin Calcium 20 MG Take 1 tablet by mouth once daily; Duration: 90 Active Ibuprofen 600 MG 1 tab(s) orally tid prn 6 Active Primidone 50 MG 1 tab(s) orally 2 tablets am and 3 tablet pm Active Lisinopril 10 MG Take 1 tablet by mayra th once daily; Duration: 90 Active Ranolazine ER 1000 MG 1 tab(s) orally 2 times a day Active Aspirin 81 MG 1 tab(s) Orally once a day Active Baclofen 10 MG 1 tab(s) orally 3 ti mes a day; Duration: 10 Not-Taking Jardiance 10 MG Take 1 tablet by mayra th once daily for 90 days; Duration: 90 Active metFORMIN HCl 500 MG 1 tab(s) orally onc e daily; Duration: 90 days Active Sulindac 200 MG 1 tab(s) orally 2 ti mes a day; Duration: 30 day(s) 10/29/2019 Not-Taking Adderall XR 20 MG 1 cap(s) orally once a day (in the morning); Duration: 30 days 08/01/2024 Active Immunizations Vaccine Route Administration Date Status Comme nts COVID 19 Moderna Unknown 10/02/2020 Administered COVID 19 Moderna Unknown 11/03/2020 Administered Tetanus Tdap-Adacel (over 7yrs) IM Intramuscular 08/02/2022 Administered Problems Problem Type SNOMED Code ICD Code Onset Dates Problem Status W/U Status Risk Notes Problem Hyperlipidemia (20026074) Hyperlipidemia (272.4) Active confirmed Problem Hypertension (95221965) Hypertension NOS (401.9) Active confirmed Problem Type II diabetes mellitus without complication (257378311) Type 2 diabetes mellitus without complications (E11.9) Active confirmed Problem Essential hypertension (13726732) Essential hypertension (I10) Active confirmed Problem Mixed hyperlipidemia (910453193) Mixed hyperlipidemia (E78.2) Active confirmed Problem Male erectile disorder (462587980) Male erectile disorder (N52.9) Active confirmed Problem Attention deficit disorder (93349674) Attention deficit disorder (F90.0) Active confirmed Problem Acute suppurative otitis media without spontaneous rupture of ear drum (49460859) Recurrent acute suppurative otitis media without spontaneous rupture of tympanic membrane of both sides (H66.006) Active confirmed Problem Essential tremor (817999571) Benign essential tremor (G25.0) Active confirmed Problem Obstructive sleep apnea syndrome (50915801) LETY (obstructive sleep apnea) (G47.33) Active confirmed Problem Acute non-suppurative otitis media - serous (185516930) Recurrent acute serous otitis media of both ears (H65.06) Active confirmed Problem Body mass index 40+ - morbidly obese (073585527) BMI 40.0-44.9, adult (Z68.41) Active confirmed Problem Acute pain of right knee (M25.561) Active confirmed Problem Pain in thoracic spine (399107355) Acute midline thoracic back pain (M54.6) Active confirmed Problem Angina co-occurrent and due to coronary arteriosclerosis (87055357148113153) 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) Active confirmed Problem Hypertrophic obstructive cardiomyopathy (06322773) 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) Active confirmed Problem Benign prostatic hypertrophy without outflow obstruction (930487479) BPH without urinary obstruction (N40.0) Active confirmed Vital Signs Heart Rate 62 /min 07/09/2024 Blood pressure diastolic 76 mm Hg 07/09/2024 Height 69.50 in 07/09/2024 Blood pressure systolic 114 mm Hg 07/09/2024 Weight 259.6 lbs 07/09/2024 BMI 37.78 kg/m2 07/09/2024 Encounters Encounter Location Date Provider Diagnosis [facility] [address] [place] Mancuso [id number] 12/30/2023 Reese Aiken Attention deficit disorder F90.0 ; Type 2 diabetes mellitus without complications E11.9 ; Mixed hyperlipidemia E78.2 ; 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 and Essential hypertension I10 [facility] [address] [place], [place] [id number] 03/30/2024 Reese Aiken Type 2 diabetes pam itus without complications E11.9 ; Attention deficit disorder F90.0 and BPH without urinary obstruction N40.0 [facility] [address] [place], [place] [id number] 07/09/2024 J Atif Aiken Attention deficit disorder F90.0 ; Type 2 diabetes mellitus without complications E11.9 ; 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 and 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 I25.118 [facility] [address] [place], [place] [id number] 07/24/2024 Reese Aiken Type 2 diabetes pam itus without complications E11.9 [facility] [address] [place], [place] [id number] 09/01/2023 Reese Aiken Attention deficit disorder F90.0 [facility] [address] [place], [place] [id number] 10/03/2023 Reese Aiken Attention deficit disorder F90.0 [facility] [address] [place], [place] [id number] 11/01/2023 Rosalie Quevedo Attention deficit disorder F90.0 [facility] [address] [place], [place] [id number] 12/08/2023 Reese Aiken Attention deficit disorder F90.0 [facility] [address] [place], [place] [id number] 01/03/2024 Reese Aiken [facility] [address] [place], [place] [id number] 01/12/2024 J Atif Aiken Attention deficit disorder F90.0 [facility] [address] [place], [place] [id number] 02/14/2024 Reese Aiken Attention deficit disorder F90.0 [facility] [address] [place], [place] [id number] 03/13/2024 Reese Aiken Attention deficit disorder F90.0 [facility] [address] [place], [place] [id number] 04/04/2024 Reese Aiken [facility] [address] [place], [place] [id number] 04/23/2024 J Atif Aiken Attention deficit disorder F90.0 [facility] [address] [place], [place] [id number] 05/22/2024 Reese Aiken Attention deficit disorder F90.0 [facility] [address] [place], [place] [id number] 05/22/2024 Reese Aiken Attention deficit disorder F90.0 [facility] [address] [place], [place] [id number] 06/26/2024 Ellis Cisneros Attention deficit disorder F90.0 [facility] [address] [place], [place] [id number] 07/23/2024 Reese Aiken Screening for colon cancer Z12.11 [facility] [address] [place], [place] [id number] 07/31/2024 Reese Aiken Attention deficit disorder F90.0 Assessments Encounter Date Diagnosis (ICD Code) Assessment Notes Treatment Notes Treatment Clinical Notes Section Notes 09/01/2023 Attention deficit disorder (ICD-10 - F90.0) 10/03/2023 Attention deficit disorder (ICD-10 - F90.0) 11/01/2023 Attention deficit disorder (ICD-10 - F90.0) 12/08/2023 Attention deficit disorder (ICD-10 - F90.0) 12/30/2023 Type 2 diabetes mellitus without complications (ICD-10 - E11.9) 12/30/2023 Attention deficit disorder (ICD-10 - F90.0) 01/12/2024 Attention deficit disorder (ICD-10 - F90.0) 02/14/2024 Attention deficit disorder (ICD-10 - F90.0) 03/13/2024 Attention deficit disorder (ICD-10 - F90.0) 03/30/2024 Type 2 diabetes mellitus without complications (ICD-10 - E11.9) 03/30/2024 Attention deficit disorder (ICD-10 - F90.0) 04/23/2024 Attention deficit disorder (ICD-10 - F90.0) 05/22/2024 Attention deficit disorder (ICD-10 - F90.0) 05/22/2024 Attention deficit disorder (ICD-10 - F90.0) 06/26/2024 Attention deficit disorder (ICD-10 - F90.0) 07/09/2024 Attention deficit disorder (ICD-10 - F90.0) 07/23/2024 Screening for colon cancer (ICD-10 - Z12.11) 07/24/2024 Type 2 diabetes mellitus without complications (ICD-10 - E11.9) 07/31/2024 Attention deficit disorder (ICD-10 - F90.0) 07/09/2024 Type 2 diabetes mellitus without complications (ICD-10 - E11.9) 03/30/2024 BPH without urinary obstruction (ICD-10 - N40.0) 12/30/2023 Mixed hyperlipidemia (ICD-10 - E78.2) 12/30/2023 IHSS (idiopathic hypertrophic subaortic stenosis) (ICD-10 - I42.1) 07/09/2024 IHSS (idiopathic hypertrophic subaortic stenosis) (ICD-10 - I42.1) 07/09/2024 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 (ICD-10 - I25.118) 12/30/2023 Essential hypertension (ICD-10 - I10) Plan Of Treatment Pending Test Test Name Order Date Cologuard 07/23/2024 P-Microalbumin/Creatinine, Random Urine Sample 07/24/2024 Next Appt Details Provider Name:Reese Becrera , 10/12/2024 10:45:00 AM, [address] [facility], [address], [place], [place], [id number], Insurance Providers Payer Name Payer Address Payer Phone Subscriber Number Group Number Insured Name Patient Relationship to Insured Coverage Start Date Coverage End Date JOYCE [employer] [address] [place] [address] [id number] Elias Chi Self - patient is the insured Medical (General) History Medical History History ICD Code ADD Heartburn/GERD Depression with Anxiety Hypertension Chronic back pain/muscle spasms sleep Apnea 10/18/12 Echocardiogram with possible IHS S and atrial SH, mitral regurg hyperlipidemia COVID 19 Vaccine, Moderna 202006/25/21 Negative Cologuard Gets eye exams at [facility] Surgical History Surgery Date(Month/Year) carpel tunnel surgery in both hands ganglion cyst removed from left hand Heart cath and stent placement [facility] Dr. Jessica reis 07/01/16 heart cath, normal coronaries 03/23/17 Ear Tube, Right side June 2018 Hospitalization History Reason Date(Month/Year) [facility]- chest pain and Flu 03/20-03/24/17 clinic-ear infection 09/21 E coli-[facility] staph infection-[facility]
--- NOTE | 2024-08-07 10:30 | MR_ITS ---
APPROVED REPORT Narrow Gauge Engineer: CLINICAL INDICATION HCM evaluation TECHNIQUE Image Acquisition: Cardiac magnetic resonance (CMR) was performed on Siemens Espree MRI 1.5T scanner. Software platform sequences were performed using the Siemens WooMe MR B19 platform. A set of three-plane, low-resolution, large [id number] localizers were initially acquired. Then axial, coronal, sagittal TrueFISP, as well as axial HASTE images, were obtained. These were followed by gated TrueFISP breathold cinematic sequences obtained in the short axis with 8 mm slices and 2 mm gaps, 2-chamber (vertical long axis), 3-chamber, 4-chamber (horizontal long axis). A bolus of contrast was injected intravenously with first-pass sequences obtained in the short axis and four-chamber planes. After approximately 10 minutes, a TI insole tacker sequence was performed to determine the optimal TI time. Using the optimized TI time, delayed contrast enhancement segmented inversion???recovery TurboFLASH sequences were obtained in the short axis, 2-chamber, 3-chamber, and 4-chamber projections. 2D-velocity phase mapping was performed. Functional parameters were calculated by offline analysis on an independent workstation ([employer], PT PAL). Contrast: ProHance??? (Gadoteridol) FINDINGS MORPHOLOGY AND FUNCTION Left ventricle: The left ventricle is normal in size. The indexed left ventricular end-diastolic volume (LVEDVi) is 88 ml/m2 (reference range 57-105 ml/m2 in males, 56-96 ml/m2 in females). Normal left ventricular systolic function is present. There is asymmetric increase in LV wall thickness, measuring up to 16.0mm in the basal septal LV wall. There are no regional wall motion abnormalities noted. LVEF is calculated at 67.2% (reference range 57-77%). Right ventricle: The right ventricle is normal in size. The indexed right ventricular end-diastolic volume (RVEDVi) is 83 ml/m2 (reference range 61-121 ml/m2 in males, 48-112 ml/m2 in females). Normal right ventricular systolic function is present. RVEF is calculated at 51.5% (reference range 52-72% in males, 51-71% in females). Atria: The left atrium is mildly dilated. The maximum indexed left atrial volume is 37 ml/m2 (range 26-52 ml/m2 in males, 27-53 ml/m2 in females). The right atrium is mildly dilated. The maximum indexed right atrial volume is 35 ml/m2 (range 18-90 ml/m2). Aorta: The diameter of the aortic annulus is normal, measuring 23 mm (coronal view reference range 21-30 mm in males, 19-27 mm in females). The diameter of the aortic sinus is normal, measuring 31 mm (coronal view reference range 25-42 mm in males, 24-36 mm in females). The diameter of the sinotubular junction is normal, measuring 27 mm (coronal view reference range 18-32 mm in males, 18-28 mm in females). The diameters of the ascending and descending thoracic aorta are normal. Main pulmonary artery: The main pulmonary artery diameter is normal. Pericardium: The pericardial thickness is normal. The pericardial thickness measures 1.3 mm (normal < 4.0 mm). There is no pericardial effusion. VALVES The valvular morphologies in the visualized sequences appear normal. There is no significant valvular stenosis or regurgitation of the mitral, aortic, tricuspid, or pulmonic valve noted visually. Systolic anterior motion of the mitral valve is present. Septal contact is present. Blood flow acceleration is noted at the level of the LVOT, suggestive of increased LVOT gradients. Ratio of pulmonary to systemic flow, Qp:Qs ratio = 1.3 (normal < or = 1.2, hemodynamically significant shunt > 1.5), demonstrating no evidence of hemodynamically significant shunt. TISSUE CHARACTERIZATION Resting Perfusion: Normal myocardial blood flow at rest. No evidence of resting hypoperfusion. Myocardial Fibrosis and/or edema: Normal gadolinium kinetics are present. There is minimal presence of patchy late gadolinium enhancement noted in the basal septal LV wall. The total LGE burden occupies < 2% of the total myocardial thickness. T2-weighted imaging demonstrates no evidence of myocardial edema or inflammation. OTHER No other significant findings are noted. However, this exam is focused on the cardiac structure and function. IMPRESSION Normal LV size with normal LV systolic function. LVEDVi= 88 ml/m2 and LVEF= 67.2%. Asymmetric increase in LV wall thickness, up to 16 mm noted in the basal septal LV wall. Normal RV size with normal RV systolic function. RVEDVi= 83 ml/m2 and RVEF= 51.5%. Mild enlargement. Systolic anterior motion of the mitral valve is present. Septal contact is present. Blood flow acceleration is noted at the level of the LVOT, suggestive of increased LVOT gradients. Minimal presence of patchy late gadolinium enhancement noted in the basal septal LV wall. The total LGE burden occupies < 2% of the total myocardial thickness. Perfusion analysis demonstrates normal blood flow at rest with no evidence of resting hypoperfusion. Ratio of pulmonary to systemic flow, Qp:Qs ratio = 1.3 (normal < or = 1.2, hemodynamically significant shunt > 1.5), demonstrating no evidence of hemodynamically significant shunt. Overall, this CMR meets criteria for HCM in the setting of asymmetric increase in LV wall thickness > 15 mm, as well as presence of systolic anterior motion (SHO) and septal contact, as well as the minimal presence of patchy LGE in the basal septal LV wall. Further evaluation on resting TTE for LVOT obstruction at rest and with Valsalva is suggested. COMPARISON Prior CMR from 06/24/2023 CRITICAL RESULT None COMMUNICATION The above findings were relayed to the patient at the time of the routine outpatient cardiology follow-up visit, prior to dictation of this report. The findings of this cardiac MR were reviewed, reported, and signed by Farhan Samuel MD (Autoclave Operator). Conclusion Electronically signed by : Candy Samuel MD 08/23/2024 01:53:33
[2024-08-07] MEDS: SODIUM CHLORIDE 0.9% 10ML SYR (RAD ONLY) 10 ML IV (11:29)
[2024-08-07] MEDS: GADOTERIDOL INJ 20ML SYRINGE 20 ML IV (11:29)
[2024-08-07] MEDS: GADOTERIDOL INJ 10ML SYRINGE 5 ML IV (11:29)
[2024-08-07] MEDS: 0.9 % SODIUM CHLORIDE 50 ML VIAL 20 ML IV (11:29)
== END 2024-08-07 23:59 | disposition home or self-care (01) ==
LOC: RAD 09:53
PROVIDERS: PCP Family Medicine; Visit Provider Physician Assistant
DX: I42.2 Other hypertrophic cardiomyopathy (principal); I11.0 Hypertensive heart disease with heart failure; I50.30 Unspecified diastolic (congestive) heart failure; E78.5 Hyperlipidemia, unspecified; Z95.5 Presence of coronary angioplasty implant and graft; I25.10 Atherosclerotic heart disease of native coronary artery without angina pectoris
CPT/HCPCS: 75561; A9576

== ENCOUNTER 2024-09-06 14:37 | Outpatient (CLI) | payer BC, SELFPAY ==
--- OUTSIDE RECORDS SUMMARY | 2024-07-09 07:30 | XMS_ITS ---
Author Organization [facility] Address [address] [place] [id number] Care Team Providers Care Emissions Testing And Repair Technician Name Role Phone Reese Aiken Primary Care Provider Allergies Allergen (clinical drug ingredient) Drug/Non Drug Allergy documented on EMR Reaction Allergy Type Onset Date Status Latex Latex hargrove his skin Allergy Activ e Results Component Value Reference Range Notes Glycohemoglobin A1c (in hous e) Reviewed date:07/19/2024 03:47:55 PM Interpretation:5.6 Normal Performing Lab: Notes/Report: 5.6 Normal glycohemoglobin 5.6% 5 - 6.5 % P-Comprehensive Metabolic Pa jaswinder (CMP) Reviewed date:07/19/2024 03:47:55 PM Interpretation:Normal Performing Lab: Notes/Report: Test performed by [employer], [employer] [facility] [place][note 2][address] , [address], [place] [address] Ren Weeks MD, Ring Attacher CLIA: [id number] Sodium 140 135-145 mmol/L Potassium 4.2 3.5-5.3 mmol/L Chloride 101 97-108 mmol/L CO2 26 22-32 mmol/L Glucose 84 65-99 mg/dL BUN 16 6-20 mg/dL Creatinine 0.96 0.70-1.30 mg/dL Calcium 9.8 8.6-10.4 mg/dL eGFR by Creatinine 92 >59 mL/min/1.73m2 Protein 6.6 6.0-8.3 g/dL Albumin 4.4 3.5-5.3 g/dL Alkaline Phosphatase 83 40-129 IU/L ALT (SGPT) 27 <5-55 IU/L AST (SGOT) 24 <5-46 IU/L Bilirubin, Total 0.6 <0.2-1.2 mg/dL A/G Ratio 2.0 1.1-2.5 REASON FOR VISIT 3 month check Medications Medication SIG (Take, Route, Frequency, Duration) Notes Start Date End Date Status Adderall 20 MG 2 tab(s) orally once a day in the afternoon as needed; Duration: 30 days 05/24/2024 Active Rosuvastatin Calcium 20 MG Take 1 tablet by mouth once daily; Duration: 90 Active Adderall XR 20 MG 1 cap(s) orally once a day (in the morning); Duration: 30 days 06/27/2024 Active Lisinopril 10 MG Take 1 tablet by mayra th once daily; Duration: 90 Active Jardiance 10 MG Take 1 tablet by mayra th once daily for 90 days; Duration: 90 Active PriLOSEC OTC 20 MG 1 tab(s) orally once a day Active Vitamin D3 50 MCG (2000 UT) 1 tab(s) orally once a day 03/15/2013 Active Ranolazine ER 1000 MG 1 tab(s) orally 2 times a day Active Aspirin 81 MG 1 tab(s) Orally once a day Active metFORMIN HCl 500 MG 1 tab(s) orally onc e daily; Duration: 90 days Active Fluticasone Propionate 50 MCG/ACT 1 spray each nostril once a day 04/09/2014 Active Bisoprolol Fumarate 10 MG 1 tab(s) orally bid Active Ozempic (1 MG/DOSE) 4 MG/3ML as directed Subcutaneous Act juanpablo Ibuprofen 600 MG 1 tab(s) orally tid prn 6 Active Primidone 50 MG 1 tab(s) orally 2 tablets am and 3 tablet pm Active Viagra 100 MG 1 tab(s) orally once a day 06/25/2015 Not-Taking Venlafaxine HCl ER 75 MG Take 1 capsule by mouth once daily for 90 days; Duration: 90 Active Baclofen 10 MG 1 tab(s) orally 3 ti mes a day; Duration: 10 Not-Taking Sulindac 200 MG 1 tab(s) orally 2 ti mes a day; Duration: 30 day(s) 10/29/2019 Not-Taking Vital Signs Blood pressure systolic 114 mm Hg 07/10/19 25 Blood pressure diastolic 76 mm Hg 025 Heart Rate 62 /min 07/09/2024 Height 69.50 in 07/09/2024 Weight 259.6 lbs 07/09/2024 BMI 37.78 kg/m2 07/09/2024 Encounters Encounter Location Date Provider Diagnosis [facility] [address] [facility] [address] [facility] [address] [place], [place] [id number] 07/09/2024 Reese Aiken Attention deficit disorder F90.0 ; Type 2 diabetes mellitus without complications E11.9 ; 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 and Coronary artery disease of [place] artery of [place] heart with stable angina pectoris I25.118 Assessments Encounter Date Diagnosis (ICD Code) Assessment Notes Treatment Notes Treatment Clinical Notes Section Notes 07/09/2024 Attention deficit disorder (ICD-10 - F90.0) 07/09/2024 Type 2 diabetes mellitus without complications (ICD-10 - E11.9) 07/09/2024 IHSS (idiopathic hypertrophic subaortic stenosis) (ICD-10 - I42.1) 07/09/2024 Coronary artery disease of [place] artery of [place] heart with stable angina pectoris (ICD-10 - I25.118) Plan Of Treatment Next Appt Details Follow Up: 3 Months, Reason: Provider Name:Reese Becerra er, 10/12/2024 10:45:00 AM, [address] [facility] [address] [facility], [address], [place], [id number], Progress Notes * Elias CHIDOB:1965 ( 58 yo M)Acc No.[id number]:07/09/2024 Progress Notes Patient: Elias ANAYA Provider: Reese Aiken M.D. :1965 A ge:58 Y S ex:Male Date:07/09/2024 [facility] [address] [place], [id number] Subjective: * Chief Complaints: * 1 . 3 month check. * HPI: C ardiology: The pt is here for a check up on Hypertension, Hyperlipidemia, and Diabetes. Pt states he is doing good and denies any new concerns. Pt states he is fasting. Denies : Chest Pain. D enies : Short of Breath. D enies : Dizziness. D enies : Palpitations. * ROS: D ERMATOLOGY: no R prem. n o H madeleine. G ASTROENTEROLOGY: no N ausea. n o V omiting. n o D iarrhea.? U ROLOGY: no D ifficulty urinating. n o B lood in urine. * Medical History: A DD, Heartburn/GERD , Depression with Anxiety , Hypertension , Chronic back pain/muscle spasms , sleep Apnea, 10/18/12 Echocardiogram with possible IHSS and atrial SH, mitral regurg, Hyperlipidemia, COVID 19 Vaccine, Moderna 2020, 06/25/21 Negative Cologuard, Gets eye exams at [facility]. * Surgical History: c arpel tunnel surgery in both hands , ganglion cyst removed from left hand , Heart cath and stent placement [facility] Dr. Coyle 07/01/16, heart cath, normal coronaries 03/23/17, Ear Tube, Right side June 2018. * Hospitalization/Major Diagno stic Procedure: s taph infection-[facility] , E coli-[facility] , clinic-ear infection 09/21, [facility]- chest pain and Flu 03/20-03/24/17. * Family History: F ather: 83 yrs, heart problems, lung cancer. M other: 82 yrs, Heart problems. 1 son(s) . . * Pt is adopted. * Social History: C URRENT TOBACCO USE S moking Status: Patient does NOT smoke, Type of smokeless tobacco used: dip. C affeine: yes, frequency: coffee, mt dew. Alcohol: beer on occasion, moonshine on occasion. * Medications: T aking Ozempic (1 MG/DOSE) 4 MG/3ML Solution Pen-injector as directed Subcutaneous , Taking Bisoprolol Fumarate 10 MG Tablet 1 tab(s) orally bid , Taking Primidone 50 MG Tablet 1 tab(s) orally 2 tablets am and 3 tablet pm , Taking Ibuprofen 600 MG Tablet 1 tab(s) orally tid prn , Taking Fluticasone Propionate 50 MCG/ACT Suspension 1 spray each nostril once a day , Taking PriLOSEC OTC 20 MG Tablet Delayed Release 1 tab(s) orally once a day , Taking Vitamin D3 50 MCG (2000 UT) Tablet 1 tab(s) orally once a day , Taking Aspirin 81 MG Tablet Delayed Release 1 tab(s) Orally once a day , Taking Ranolazine ER 1000 MG Tablet Extended Release 12 Hour 1 tab(s) orally 2 times a day , Taking metFORMIN HCl 500 MG Tablet 1 tab(s) orally once daily , Taking Jardiance 10 MG Tablet Take 1 tablet by mouth once daily for 90 days , Taking Rosuvastatin Calcium 20 MG Tablet Take 1 tablet by mouth once daily , Taking Adderall 20 MG Tablet 2 tab(s) orally once a day in the afternoon as needed , Taking Lisinopril 10 MG Tablet Take 1 tablet by mouth once daily , Taking Adderall XR 20 MG Capsule Extended Release 24 Hour 1 cap(s) orally once a day (in the morning) , Taking Venlafaxine HCl ER 75 MG Capsule Extended Release 24 Hour Take 1 capsule by mouth once daily for 90 days , Not-Taking Viagra 100 MG Tablet 1 tab(s) orally once a day , Not-Taking Sulindac 200 MG Tablet 1 tab(s) orally 2 times a day , Not-Taking Baclofen 10 MG Tablet 1 tab(s) orally 3 times a day , Medication List reviewed and reconciled with the patient * Allergies: L atex: hargrove his skin. Objective: * Vitals: W t: 259.6, Temp: 98.2, BP: 114/76, HR: 62, Nurse: LITO, Ht: 69.50, BMI:37.78. * Examination: G eneral Examination: General Appearance: N AD, note weight loss. H EENT:?unremarkable. O ral cavity: n o lesions, mucosa moist and WNL, no erythema. N dinora: ?supple, no lymphadenopathy. C hest: n ormal shape and expansion. H eart: R SR. Lungs: c lear to auscultation. A bdomen: obese, soft and nontender, no organomegaly or masses. N eurologic Exam: I ntact, gait normal. S kin: n ormal, no rash. P eripheral pulses: n ormal . B ack: mild dorsal kyphosis. E xtremities: trace leg edema. Assessment: * Assessment: 1. A ttention deficit disorder - F90.0 (Primary) 2 . T ype 2 diabetes mellitus without complications - E11.9 3 . I HSS (idiopathic hypertrophic subaortic stenosis) - I42.1 4 . C oronary artery disease of [place] artery of [place] heart with stable angina pectoris - I25.118 Plan: * Treatment: Value Reference Range A /G Ratio 2.0 1.1-2.5 - * A lbumin 4.4 3.5-5.3 - g/dL * A lkaline Phosphatase 83 40-129 - IU/L * A LT (SGPT) 27 <5-55 - IU/L * A ST (SGOT) 24 <5-46 - IU/L * B ilirubin, Total 0.6 <0.2-1.2 - mg/dL * B UN 16 6-20 - mg/dL * C alcium 9.8 8.6-10.4 - mg/dL * C hloride 101 97-108 - mmol/L * C O2 26 22-32 - mmol/L * C reatinine 0.96 0.70-1.30 - mg/dL * G lucose 84 65-99 - mg/dL * P otassium 4.2 3.5-5.3 - mmol/L * S odium 140 135-145 - mmol/L * P rotein 6.6 6.0-8.3 - g/dL * e GFR by Creatinine 92 >59 - mL/min/1.73m2 * Linda Palacios 07/19/2024 03 :47:23 PM EDT > Patient informed of normal results. ?LAB: Glycohemoglobin A1c (in house) (Collection Date & Time - 07/09/2024)? 5.6 Normal* Value Reference Range g lycohemoglobin 5.6% 5 - 6.5 % * Linda Palacios 07/09/2024 05: 00:24 PM EDT > Linda Palacios 07/19/2024 03:47:23 PM EDT > Patient informed of normal results. * Labs: * L ab: P-Microalbumin/Creatinine, Random Urine Sample (Ordered for 07/09/2024) (Collection Date & Time - 07/10/2024) n ot performed * Procedure Codes: 3 6416 CAPILLARY BLOOD DRAW, 38789 GLYCATED HEMOGLOBIN TEST, Modifiers: QW , 1036F TOBACCO NON-USER, G8752 MOST RECENT SYSTOLIC BP < 140MM HG, G8754 MOST RECENT DIASTOLIC BP < 90MM HG, 3044F HG A1C LEVEL LT 7.0%, G8783 BP SCR PRFRM RCMDD DEFIND SCR INTVL * Follow Up: 3 Months * Images: Billing Information: * Visit Code: 17632 Office Visit, Est Pt., Level 3. * Procedure Codes: 36394 CAPILLARY BLOOD DRAW. 76445 GLYCATED HEMOGLOBIN TEST. Modifiers: QW 1036F TOBACCO NON-USER. G8752 MOST RECENT SYSTOLIC BP < 140MM HG. G8754 MOST RECENT DIASTOLIC BP < 90MM HG. 3044F HG A1C LEVEL LT 7.0%. G8783 BP SCR PRFRM RCMDD DEFIND SCR INTVL. * Electronic signature of Reese Aiken MD on 09/06/2024 at 02:40 PM EDT Sign off status: Pending * Provider: Reese Aiken M.D. Date: 07/09/2024 Generated for Kikai janet/Hernán/eTransmitting on: 0 09/06/2024 02:40 PM EDT History and Physical Notes * HPI (History of Present Illness) Category Sub-Category Detail Notes Category Not es Cardiology Short of Breath Chest Pain Palpitations Dizziness Examination Category Sub-Category Detail Notes Category Not es General Examination HEENT: unremarkable Heart: RSR Lungs: clear to auscultatio n Abdomen: obese, soft and nont piedad, no organomegaly or masses Extremities: trace leg edema General Appearance: NAD, note weight los s Skin: normal, no rash Neurologic Exam: Intact, gait normal Neck: supple, no lymphaden opathy Oral cavity: no lesions, mucosa m oist and WNL, no erythema Peripheral pulses: normal Back: mild dorsal kyphosis Chest: normal shape and exp ansion
--- OUTSIDE RECORDS SUMMARY | 2024-07-23 05:34 | XMS_ITS ---
Author Organization [facility] Address [address] [facility] [address] [place] [phone] Care Team Providers Care Manager Code Name Role Phone Reese Aiken Primary Care Provider [phone] Results Component Value Reference Range Notes Cologuard Reviewed date:08/22/2024 01:14:33 PM Interpretation:Negative Performing Lab: Notes/Report: Negative Cologuard neg, f/u in 3 years REASON FOR VISIT due colonoscopy Encounters Encounter Location Date Provider Diagnosis [facility] [address] [facility] [address] [place] [phone] 07/23/2024 Reese Aiken Screening for colon cancer Z12.11 Assessments Encounter Date Diagnosis (ICD Code) Assessment Notes Treatment Notes Treatment Clinical Notes Section Notes 07/23/2024 Screening for colon cancer (ICD-10 - Z12.11) Plan Of Treatment Next Appt Details Provider Name:Reese Becerra er, 10/12/2024 10:45:00 AM, [address] [facility], [address], [place], [phone], Progress Notes * Elias CHIDOB:1965 ( 58 yo M)Acc No.[id number]:07/23/2024 Patient: Elias ANAYA :1965 A ge:58 Y S ex:Male Address:[address], [place], [address] Subjective: * Chief Complaints: * D ue colonoscopy * Medical History: * Surgical History: * Hospitalization/Major Diagno stic Procedure: * Medications: Objective: * Vitals: * Physical Examination: Assessment: * Assessment: 1. S creening for colon cancer - Z12.11 (Primary) Plan: * Treatment: * Procedure Codes: * true * Date: Generated for Rachel gonzales/Hernán/Maricarmen on: 0 09/06/2024 02:40 PM EDT
--- OUTSIDE RECORDS SUMMARY | 2024-07-24 06:00 | XMS_ITS ---
Author Organization [facility] Address [address] [facility] [address] [facility] [address] [place] [phone] Care Team Providers Care Dairy And Food Laboratory Assistant Name Role Phone Reese Aiken Primary Care Provider Results Component Value Reference Range Notes P-Microalbumin/Creatinine, R andom Urine Sample Reviewed date:08/07/2024 03:57:33 PM Interpretation:Normal Performing Lab: Notes/Report: Test performed by [employer] [address] [place] [address] , [address], [place] [address] Ren Weeks MD, Sales And Retail Management Recruiter CLIA: [id number] Albumin/Creatinine Ratio, Urine <23.07 0-30 ug/m g Microalbumin, Urine, Random <0.3 Creatinine, Urine 13.0 REASON FOR VISIT urine sample Encounters Encounter Location Date Provider Diagnosis [facility] [address] [facility] [address] [facility] [address] [place] [phone] 07/24/2024 Reese Aiken Type 2 diabetes mellitus without complications E11.9 Assessments Encounter Date Diagnosis (ICD Code) Assessment Notes Treatment Notes Treatment Clinical Notes Section Notes 07/24/2024 Type 2 diabetes mellitus without complications (ICD-10 - E11.9) Plan Of Treatment Next Appt Details Provider Name:Reese Becerra er, 10/12/2024 10:45:00 AM, [address] [facility], [address], [place], [phone], Progress Notes * Elias CHIDOB:1965 ( 58 yo M)Acc No.[id number]:07/24/2024 Patient: Elias ANAYA Provider: Reese Aiken M.D. :1965 A ge:58 Y S ex:Male Date:07/24/2024 Address:[address], [place], [phone] Subjective: * Chief Complaints: * 1 . Urine sample. * Medical History: Objective: * Vitals: Assessment: * Assessment: 1. T ype 2 diabetes mellitus without complications - E11.9 (Primary) Plan: * Treatment: Value Reference Range A lbumin/Creatinine Ratio, Urine <23.07 0-30 - ug /mg * C reatinine, Urine 13.0 - mg/dL * M icroalbumin, Urine, Random <0.3 - mg/dL * Linda Palacios 08/07/2024 03: 57:26 PM EDT > Patient informed of normal results. * Images: Billing Information: * Visit Code: * Procedure Codes: * Electronic signature of Reese Aiken MD on 09/06/2024 at 02:39 PM EDT Sign off status: Pending * Provider: Reese Aiken M.D. Date: 0 07/24/2024 Generated for Racehl gonzales/Hernán/Manjinderitting on: 0 09/06/2024 02:39 PM EDT
--- OUTSIDE RECORDS SUMMARY | 2024-09-06 14:40 | XMS_ITS | Patient Health Record ---
Author Organization [facility] Address [address] [place] [id number] Care Team Providers Care Food Safety Auditor Name Role Phone Reese Aiken Primary Care Provider Rosalie Quevedo Unavailable [phone] Ellis Cisneros Unavailable [phone] Allergies Allergen (clinical drug ingredient) Drug/Non Drug Allergy documented on EMR Reaction Allergy Type Onset Date Status Latex Latex hargrove his skin Allergy Activ e Results Component Value Reference Range Notes P-Microalbumin/Creatinine, R andom Urine Sample Reviewed date:08/07/2024 03:57:33 PM Interpretation:Normal Performing Lab: Notes/Report: Test performed by [facility] [address] [place], [place] [address] , [address], [place] [address] Ren Weeks MD, Digital Account Executive CLIA: [id number] Albumin/Creatinine Ratio, Urine <23.07 0-30 ug/mg Microalbumin, Urine, Random <0.3 Creatinine, Urine 13.0 Cologuard Reviewed date:08/22/2024 01:14:33 PM Interpretation:Negative Performing Lab: Notes/Report: Negative Cologuard neg, f/u in 3 years P-Lipid Panel Reviewed date:01/03/2024 03:53:30 PM Interpretation:trigs 162, hdl 35 Performing Lab: Notes/Report: Test performed by [facility] [address] [place], [place] [address] , [address], [place] [address] Ren Weeks MD, Digital Account Executive CLIA: [id number] Cholesterol 123 <200 mg/dL Triglycerides 162 <150 [...] Results: 56 Units: mg/dL % Change: - P-Comprehensive Metabolic Pa jaswinder (CMP) Reviewed date:01/03/2024 03:53:30 PM Interpretation:gluc 155 Performing Lab: Notes/Report: Test performed by [facility] [address] [place] [address] , [facility], [place] [address] Ren Weeks MD, Digital Account Executive CLIA: [id number] Sodium 136 135-145 mmol/L Potassium 3.8 3.5-5.3 [...] 0.4 <0.2-1.2 mg/dL A/G Ratio 2.1 1.1-2.5 Glycohemoglobin A1c (in hous e) Reviewed date:12/30/2023 02:01:04 PM Interpretation:5.6% Performing Lab: Notes/Report: 5.6% glycohemoglobin 5.6% 5 - 6.5 % Glycohemoglobin A1c (in hous e) Reviewed date:04/04/2024 01:00:22 PM Interpretation:5.5 Performing Lab: Notes/Report: 5.5 glycohemoglobin 5.5% 5 - 6.5 % P-Comprehensive Metabolic Pa jaswinder (CMP) Reviewed date:04/03/2024 11:21:32 AM Interpretation:Normal Performing Lab: Notes/Report: Test performed by [facility], [address] , [address] , [place] [address] Ren Weeks MD, Digital Account Executive CLIA: [id number] Sodium 141 135-145 mmol/L Potassium 4.3 3.5-5.3 [...] 0.4 <0.2-1.2 mg/dL A/G Ratio 2.4 1.1-2.5 P-PSA Reviewed date:04/03/2024 11:21:50 AM Interpretation:Normal Performing Lab: Notes/Report: Test performed by [facility] [address] [place] [address] , [address], [place] [address] Ren Weeks MD, Digital Account Executive CLIA: [id number] PSA 0.40 <4.00 ng/mL Please note this is an ultrasensitive PSA assay with a lower limit of detection of 0.014 ng/mL. This test is performed by the [employer] ECLIA methodology. Values obtained with different assay methods or kits cannot be directly compared. Glycohemoglobin A1c (in hous e) Reviewed date:07/19/2024 03:47:55 PM Interpretation:5.6 Normal Performing Lab: Notes/Report: 5.6 Normal glycohemoglobin 5.6% 5 - 6.5 % P-Comprehensive Metabolic Pa jaswinder (CMP) Reviewed date:07/19/2024 03:47:55 PM Interpretation:Normal Performing Lab: Notes/Report: Test performed by [facility] [address] [place] [address] , [address], [place] [address] Ren Weeks MD, Digital Account Executive CLIA: [id number] Sodium 140 135-145 mmol/L Potassium 4.2 3.5-5.3 [...] 0.6 <0.2-1.2 mg/dL A/G Ratio 2.0 1.1-2.5 P-Microalbumin/Creatinine, R andom Urine Sample Reviewed date:07/14/2024 08:06:38 AM Interpretation:not performed Performing Lab: Notes/Report: not performed Medications Medication SIG (Take, Route, Frequency, Duration) [...] Duration: 90 Active Vitamin D3 50 MCG (2000 UT) [...] day (in the morning); Duration: 30 days 09/03/2024 Active Immunizations Vaccine Route Administration Date Status Comme nts Tetanus Tdap-Adacel (over 7yrs) IM Intramuscular 08/02/2022 Administered COVID 19 Moderna Unknown 10/02/2020 Administered COVID 19 Moderna Unknown 11/03/2020 Administered Problems Problem Type SNOMED Code ICD Code Onset Dates Problem Status W/U Status Risk Notes Problem Hyperlipidemia (55679662) Hyperlipidemia (272.4) Active confirmed Problem Hypertension (98002873) Hypertension NOS (401.9) Active confirmed Problem Type II diabetes mellitus without complication (895701709) Type 2 diabetes mellitus without complications (E11.9) Active confirmed Problem Essential hypertension (17305425) Essential hypertension (I10) Active confirmed Problem Mixed hyperlipidemia (375839990) Mixed hyperlipidemia (E78.2) Active confirmed Problem Male erectile disorder (817751457) Male erectile disorder (N52.9) Active confirmed Problem Attention deficit disorder (47898044) Attention deficit disorder (F90.0) Active confirmed Problem Acute suppurative otitis media without spontaneous rupture of ear drum (81478512) Recurrent acute suppurative otitis media without spontaneous rupture of tympanic membrane of both sides (H66.006) Active confirmed Problem Essential tremor (060607267) Benign essential tremor (G25.0) Active confirmed Problem Obstructive sleep apnea syndrome (51348413) LETY (obstructive sleep apnea) (G47.33) Active confirmed Problem Acute non-suppurative otitis media - serous (674493327) Recurrent acute serous otitis media of both ears (H65.06) Active confirmed Problem Body mass index 40+ - morbidly obese (616496109) BMI 40.0-44.9, adult (Z68.41) Active confirmed Problem Acute pain of right knee (M25.561) Active confirmed Problem Pain in thoracic spine (903281605) Acute midline thoracic back pain (M54.6) Active confirmed Problem Angina co-occurrent and due to coronary arteriosclerosis (72503951410323455) 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) Active confirmed Problem Hypertrophic obstructive cardiomyopathy (04634971) 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) Active confirmed Problem Benign prostatic hypertrophy without outflow obstruction (663777068) BPH without urinary obstruction (N40.0) Active confirmed Vital Signs Heart Rate 62 /min 07/09/2024 Blood pressure diastolic 76 mm Hg 07/09/2024 Height 69.50 in 07/09/2024 Blood pressure systolic 114 mm Hg 07/09/2024 Weight 259.6 lbs 07/09/2024 BMI 37.78 kg/m2 07/09/2024 Encounters Encounter Location Date Provider Diagnosis [facility] [address] [place], [place] [id number] 12/30/2023 Reese Aiken Attention deficit disorder F90.0 ; Type 2 diabetes mellitus without complications E11.9 ; Mixed hyperlipidemia E78.2 ; 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 and Essential hypertension I10 [facility] [address] [facility] [address] [place], [place] [id number] 03/30/2024 Reese Aiken Type 2 diabetes pam itus without complications E11.9 ; Attention deficit disorder F90.0 and BPH without urinary obstruction N40.0 [facility] [address] [place], [place] [id number] 07/09/2024 Reese Aiken Attention deficit disorder F90.0 ; Type 2 diabetes mellitus without complications E11.9 ; 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 and Coronary artery disease of [place] artery of [place] fork heart with stable angina pectoris I25.118 [facility] [address] [place], [place] [id number] 07/24/2024 Reese Aiken Type 2 diabetes pam itus without complications E11.9 [facility] [address] [place], [place] [id number] 10/03/2023 Reese Aiken Attention deficit disorder F90.0 [facility] [address] [place], [place] [id number] 11/01/2023 Rosalie Quevedo Attention deficit disorder F90.0 [facility] [address] [place], [place] [id number] 12/08/2023 Reese Aiken Attention deficit disorder F90.0 [facility] [address] [place], [place] [id number] 01/03/2024 Reese Aiken [facility] [address] [place], [place] [id number] 01/12/2024 Reese Aiken Attention deficit disorder F90.0 [facility] [address] [place], [place] [id number] 02/14/2024 J Atif Aiken Attention deficit disorder F90.0 [facility] [address] [place], [place] [id number] 03/13/2024 J Atif Attila Attention deficit disorder F90.0 [facility] [address] [place], [place] [id number] 04/04/2024 Reese Aiken [facility] [address] [place], [place] [id number] 04/23/2024 J Atif Attila Attention deficit disorder F90.0 [facility] [address] [place], [place] [id number] 05/22/2024 J Atif Attila Attention deficit disorder F90.0 [facility] [address] [place], [place] [id number] 05/22/2024 J Atif Aiken Attention deficit disorder F90.0 [facility] [address] [place], [place] [id number] 06/26/2024 Ellis [place] Attention deficit disorder F90.0 [facility] [address] [place], [place] [id number] 07/23/2024 Reese Aiken Screening for colon cancer Z12.11 [facility] [address] [place], [place] [id number] 07/31/2024 J Atif Aiken Attention deficit disorder F90.0 [facility] [address] [place], [place] [id number] 08/28/2024 J Atif Aiken Attention deficit disorder F90.0 Assessments Encounter Date Diagnosis (ICD Code) Assessment Notes Treatment Notes Treatment Clinical Notes Section Notes 10/03/2023 Attention deficit disorder (ICD-10 - F90.0) [...] 06/26/2024 Attention deficit disorder (ICD-10 - F90.0) 07/23/2024 Screening for colon cancer (ICD-10 - Z12.11) 07/24/2024 Type 2 diabetes mellitus without complications (ICD-10 - E11.9) 07/31/2024 Attention deficit disorder (ICD-10 - F90.0) 08/28/2024 Attention deficit disorder (ICD-10 - F90.0) 07/09/2024 Attention deficit disorder (ICD-10 - F90.0) 07/09/2024 Type 2 diabetes mellitus without complications (ICD-10 - E11.9) 03/30/2024 BPH without urinary obstruction (ICD-10 - N40.0) 12/30/2023 Mixed hyperlipidemia (ICD-10 - E78.2) 12/30/2023 IHSS (idiopathic hypertrophic subaortic stenosis) (ICD-10 - I42.1) 07/09/2024 IHSS (idiopathic hypertrophic subaortic stenosis) (ICD-10 - I42.1) 07/09/2024 Coronary artery disease of [place] artery of [place] fork heart with stable angina pectoris (ICD-10 - I25.118) 12/30/2023 Essential hypertension (ICD-10 - I10) Plan Of Treatment Next Appt Details Provider Name:Reese Srivastava Hernan , 10/12/2024 10:45:00 AM, [address] [facility], [address], [place], [id number], Insurance Providers Payer Name Payer Address Payer Phone Subscriber Number Group Number Insured Name Patient Relationship to Insured Coverage Start Date Coverage End Date JOYCE WILLIS [employer] [address] [place] [address] [id number] Elias Chi Self - patient is the insured Medical (General) History Medical History History ICD Code ADD Heartburn/GERD Depression with Anxiety Hypertension Chronic back pain/muscle spasms sleep Apnea 10/18/12 Echocardiogram with possible IHS S and atrial SH, mitral regurg hyperlipidemia COVID 19 Vaccine, Moderna 202006/25/21 Negative Cologuard Gets eye exams at [facility] Surgical History Surgery Date(Month/Year) carpel tunnel surgery in both hands ganglion cyst removed from left hand Heart cath and stent placement [facility] Dr. Jessica reis 07/01/16 heart cath, normal coronaries 03/23/17 Ear Tube, Right side June 2018 Hospitalization History Reason Date(Month/Year) [facility]- chest pain and Flu 03/20-03/24/17 clinic-ear infection 09/21 E coli-[facility] staph infection-[facility]
--- NOTE | 2024-09-06 15:15 | CA_ITS ---
APPROVED REPORT EXAM: Comprehensive 2D, Doppler, and color-flow Echocardiogram Gis Consultant: Dee Mittal RT(R) Ht: 5 ft 10 in Wt: 259lbs BSA: 2.33 BP: 124/71 mmHg Indications: HFpEF, atypical CP 2D Dimensions LA Volume 39.10 mL LA Volume Index 16.78 mL/m2 (M/F) 16-34 EF AP4 43.60 % GL Strain -14.5 % M-Mode Dimensions RVDd 3.62 cm (0.9-2.6) LA Diam 4.14 cm (1.9-4.0) LVDd 4.32 cm (3.5-5.7) LVDs 3.15 cm (3.5-5.7) IVSd 1.08 cm (0.6-1.1) PWd 1.08 cm (0.6-1.1) EF (Teich) 53.10% FS 27.10% EDV (Teich) 84.00 mL ESV (Teich) 39.40 mL LV Diastology E Decel Time 247 (160-240 msec) E/A Ratio 1.03 Aortic Valve RODOLFO Index 1.16 cm2/m2 AoV Peak Ferny. 208.0 (50-130 cm/s) AO Peak GR. 17.30 mmHg AO Mean GR. 8.50 (<5 mmHg) AO VTI 44.4 (18-25 cm) RODOLFO (VTI) 2.78 (2.5-4.5 cm2) Mitral Valve MV A Velocity 90.0 (40-130 cm/s) E/A Ratio 1.03 Left Ventricle Known history of HCM. The left ventricle is normal size. Left ventricular systolic function is normal. The left ventricular ejection fraction is within the normal range. There is marked left ventricular wall thickness. IVSd is 1.6 cm. There is no evidence of LVOT obstruction at rest or with Valsalva. There is normal LV segmental wall motion. The left ventricular diastolic function is indeterminate. LVEF is 60%. Right Ventricle The right ventricle is mildly dilated. The right ventricular systolic function is normal. Atria Left atrium is mildly dilated. Right atrium is mildly dilated. There is no color Doppler evidence of interatrial shunt. Aortic Valve The aortic valve is mildly thickened. There is no hemodynamically significant aortic valvular stenosis. Trace aortic regurgitation is present. Mitral Valve Systolic anterior motion (SHO) is present with intermittent septal contact. No evidence of mitral valve stenosis. Trace mitral regurgitation is present. Tricuspid Valve The tricuspid valve leaflets are thin and pliable. Trace tricuspid regurgitation. There is insufficient TR jet to estimate RVSP. Pulmonic Valve The pulmonary valve is grossly normal in structure. Trace pulmonic valve regurgitation is present. Great Vessels The aortic root is normal in size. IVC is normal in size and collapses >50% with inspiration. Pericardium There is no pericardial effusion. Other Information Study Quality: Fair Conclusion Known history of HCM. Normal LV systolic function (LVEF 60%). Marked left ventricular wall thickness. IVSd is 1.6 cm. There is no evidence of LVOT obstruction at rest or with Valsalva. Mild RV dilation with normal RV function. SHO with intermittent septal contact is present. No significant valvular stenosis or regurgitation. Electronically signed by : Candy Samuel MD 09/07/2024 12:54:33
== END 2024-09-06 23:59 | disposition home or self-care (01) ==
LOC: RT 14:37
PROVIDERS: PCP Family Medicine; Visit Provider Physician Assistant
DX: I11.0 Hypertensive heart disease with heart failure (principal); I50.30 Unspecified diastolic (congestive) heart failure; I42.2 Other hypertrophic cardiomyopathy; I25.10 Atherosclerotic heart disease of native coronary artery without angina pectoris; Q20.8 Other congenital malformations of cardiac chambers and connections; R93.1 Abnormal findings on diagnostic imaging of heart and coronary circulation; Z95.5 Presence of coronary angioplasty implant and graft
CPT/HCPCS: 93306